=== PATIENT | female | born 1950 | race Caucasian/White ===

== ENCOUNTER → 2021-06-12 08:03 | Outpatient (BNVA) | payer MEDICARE, OTHER, SELFPAY | PROVIDERS: Family Provider Nurse Practitioner Family; PCP Nurse Practitioner; Visit Provider Nurse Practitioner Family | DX: R60.0 Localized edema (principal); R06.00 Dyspnea, unspecified | CPT/HCPCS: 80048 ==

== ENCOUNTER → 2021-09-10 16:46 | Outpatient (BNVA) | payer MEDICARE, OTHER, SELFPAY | PROVIDERS: Family Provider Nurse Practitioner Family; PCP Nurse Practitioner; Visit Provider Nurse Practitioner Family | DX: J90 Pleural effusion, not elsewhere classified (principal) | CPT/HCPCS: 71046 ==

== ENCOUNTER 2024-01-23 06:39 | Inpatient (IN) | payer MEDICARE, OTHER, SELFPAY ==
[2024-01-23] VITALS (17 sets, daily range): BP systolic 119–179; BP diastolic 54–106; PULSE 60–78; RESP 12–18; TEMP 36.6–36.9; O2SAT 94–99; BMI 30.9
--- NOTE | 2024-01-23 06:52 | ECG_ITS ---
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 Measurements Intervals [place] Rate: 78 P: 68 HI: 162 QRS: -27 QRSD: 89 T: 50 QT: 345 QTc: 394 Interpretive Statements SINUS RHYTHM BORDERLINE LEFT AXIS DEVIATION [QRS AXIS < -20] LEFT VENTRICULAR HYPERTROPHY AND ST-T CHANGE [VOLTAGE CRITERIA PLUS ST/T ABNORMALITY] No previous ECG available for comparison Electronically Signed On 01-25-2024 18:54:21 PAINT TRIMMER PIPE BOWLS by Ned Levi M.D. [id number]
--- NOTE | 2024-01-23 06:53 | XRR_ITS ---
PROCEDURE INFORMATION: Exam: XR Chest Exam date and time: 01/23/2024 7:08 AM Age: 73 years old Clinical indication: Pain; Angina pectoris; Additional info: Chest pain TECHNIQUE: Imaging protocol: Radiologic exam of the chest. Views: 1 view. COMPARISON: CR XR chest 2V* [id number] 09/10/2021 4:49 PM FINDINGS: Lungs: Resolved left-sided infiltrate, persistent right lower lobe opacity. Pleural spaces: Diminishing but persistent bilateral pleural effusions, right greater than left. Heart/Mediastinum: Mild cardiomegaly. Bones/joints: Status post median sternotomy for CABG. XR/XR chest 1V portable [id number] IMPRESSION: Overall improvement with persistent but improved effusion plus infiltrate on the right.
--- NOTE | 2024-01-23 06:59 | W.ED.GENADLT ---
HPI - General Adult General: Chief complaint: Chest Pain Stated complaint: chest tight, high BP, could not wake up Time Seen by Provider: 01/23/24 06:43 History of Present Illness: 73-year-old female presents emergency room complaining of elevated blood pressure and chest tightness. Patient reports she has a history of breast cancer with metastasis to bone lungs and brain. She is on oral therapy is not receiving any radiation this is managed in [place]. She also has a history of previous TAVR of coronary artery disease with several stents hypertension. Patient chronically wears oxygen at 3 L/min. This morning family reports that she seemed to be struggling to breathe they had a difficult time arousing her ultimately were able to wake her up she is complaining of chest pain describes it as a tightness. This is persisted since she actually did wake up. No radiation no accompanying shortness of breath. She has not taken anything for the chest discomfort. No hemoptysis no history of any PEs. Patient has had a previous TAVR procedure. Associated symptoms: Deny chest pain, dyspnea or rash Related Data Home Medications Medication Instructions Recorded Confirmed allopurinol 300 mg tablet 300 mg PO DAILY 01/23/24 01/23/24 isosorbide mononitrate 30 mg 30 mg PO QAM 01/23/24 01/23/24 tablet,extended release 24 hr letrozole 2.5 mg tablet 2.5 mg PO DAILY 01/23/24 01/23/24 metoprolol succinate 100 mg 100 mg PO QAM 01/23/24 01/23/24 tablet,extended release 24 hr olmesartan 20 mg tablet 20 mg PO DAILY 01/23/24 01/23/24 palbociclib 125 mg tablet (Ibrance) 125 mg PO DAILY 01/23/24 01/23/24 tramadol 50 mg tablet 50 - 100 mg PO Q4H PRN Pain 01/23/24 01/23/24 Allergies Allergy/AdvReac Type Severity Reaction Status Date / Time Usffnko-SQJ-YgZ Reductase Allergy Mild ADR-Muscle Verified 06/11/21 15:16 Inhibitor Pain Review of Systems Const: Denies: fever(s) or chills Card: Denies: chest pain Resp: Denies: dyspnea GI: Denies: abdominal pain : Denies: dysuria, urinary frequency or urinary urgency Musc: Denies: neck pain or back pain Skin/Breast: Denies: rash PFSH ED PFSH: Medical History (Updated 01/23/24 @ 15:20 by Boni Coy DO) Metastatic disease History of pleural effusion On home oxygen therapy Chronic anticoagulation Daily Lovenox Pulmonary embolism Impaired glucose tolerance Coronary artery disease Hypertension Stage IV breast cancer in female Per patient report, oncology care in [place] Surgical History (Updated 01/23/24 @ 14:03 by Kristian Chin MD) Hx of CABG Status post transcatheter aortic valve replacement (TAVR) using bioprosthesis Family History (Updated 01/23/24 @ 14:03 by Kristian Chin MD) Other Cancer Social History (Updated 01/23/24 @ 14:03 by Kristian Chni MD) Smoking and tobacco/nicotine status: former use of tobacco/nicotine Alcohol intake: never Substance/Drug Use: never Caregiver/support person: Yes Lives independently: Yes Household members: family Housing: House Physical Exam Const: GENERAL APPEARANCE: cooperative ORIENTATION/CONSCIOUSNESS: Yes awake, Yes oriented to person, Yes oriented to place and Yes oriented to time HENMT: COMMON NORMALS: normocephalic, atraumatic and hearing grossly normal bilaterally HEAD & SCALP: normocephalic and atraumatic Resp: COMMON NORMALS: normal respiratory effort, No retractions, No use of accessory muscles and clear to auscultation bilaterally AUSCULTATION: clear to auscultation bilaterally Cardio: COMMON NORMALS: regular rate, regular rhythm and No murmurs present (Cardio) RATE: regular rate RHYTHM: regular rhythm GI: COMMON NORMALS: Soft to palpation and No hepatosplenomegaly present AUSCULTATION: Yes normoactive bowel sounds PALPATION: Yes Soft to palpation, No Tenderness to palpation present (GI), No Guarding due to palpation present (GI) and Yes No hepatosplenomegaly present Extremity: COMMON NORMALS: normal to inspection, capillary refill normal, no clubbing, cyanosis or edema, no calf tenderness and no pedal edema Neuro: SENSORIUM/ORIENTATION: Yes oriented to person, Yes oriented to place and Yes oriented to time Skin: COMMON NORMALS: no rashes or lesions noted GENERAL SKIN EXAM: no rashes or lesions noted Course Vital Signs: Vital signs: Vital Signs Temperature 97.8 F 01/23/24 13:13 Pulse Rate 77 01/23/24 15:03 Respiratory Rate 18 01/23/24 13:11 Blood Pressure 157/76 01/23/24 13:13 Pulse Oximetry 96 01/23/24 13:50 Oxygen Delivery Me thod Nasal Cannula 01/23/24 15:03 Oxygen Flow Rate 2 01/23/24 13:50 MDM - General Adult Medical Decision Making Patient has a positive delta troponin started on nitroglycerin and IV heparin. She is pain-free at this time discussed with cardiology they will consult on the patient. Admit with the hospitalist. Medical Records I reviewed the patient's medical records. Lab Data I reviewed the patient's lab results. 01/23/24 07:05 01/23/24 07:05 Radiology Impressions Chest X-Ray 01/23/24 06:53 IMPRESSION: Overall improvement with persistent but improved effusion plus infiltrate on the right. Head CT 01/23/24 07:08 IMPRESSION: 1. No acute intracranial pathology. 2. Gliosis with dystrophic calcifications in the right occipital lobe. Chest CTA 01/23/24 08:05 IMPRESSION: 1. No pulmonary embolism. 2. Dilated pulmonary artery from pulmonary hypertension. 3. Atherosclerosis aorta. 4. Small RIGHT pleural effusion with dependent changes at the RIGHT lung base. 5. Mild pulmonary edema. 6. 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 Patient has no metastatic disease. 7. Soft tissue anasarca. Asymmetric soft tissue edema surrounding the RIGHT breast may be related to dependent changes or related to known breast cancer or therapy. ADDENDUM: 01/23/24 1224 IMPRESSION: 6. 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 Patient has KNOWN metastatic disease. Laboratory Results WBC 4.91 10^3/uL (3.29-11.43) 01/23/24 07:05 RBC 3.25 10^6/uL (3.85-5.65) L 01/23/24 07:05 Hgb 10.30 g/dL (11.27-16.99) L 01/23/24 07:05 Hct 31.2 % (36-47) L 01/23/24 07:05 MCV 96.0 fl (85-98) 01/23/24 07:05 MCH 31.7 pg (27-33) 01/23/24 07:05 MCHC 33.0 g/dL (30-55) 01/23/24 07:05 RDW 14.6 % (12.1-15.1) 01/23/24 07:05 Plt Count 130 10^3/cmm (157-399) L 01/23/24 07:05 MPV 10.1 fL (7.4-10.4) 01/23/24 07:05 Neut % (Auto) 86.2 % 01/23/24 07:05 Lymph % (Auto) 8.1 % 01/23/24 07:05 [place] % (Auto) 3.5 % 01/23/24 07:05 Eos % (Auto) 0.8 % 01/23/24 07:05 Baso % (Auto) 0.6 % 01/23/24 07:05 Neut # (Auto) 4.23 10^3/uL (1.8-7.7) 01/23/24 07:05 Lymph # (Auto) 0.4 10^3/uL (0.8-4.8) L 01/23/24 07:05 [place] # (Auto) 0.2 10^3/uL (0.2-0.9) 01/23/24 07:05 Eos # (Auto) 0.0 10^3/uL (0.0-0.8) 01/23/24 07:05 Baso # (Auto) 0.0 10^3/uL (0.0-0.1) 01/23/24 07:05 Nucleated RBC % (auto) 0 % 01/23/24 07:05 Nucleated RBCs # 0.0 /100WBC 01/23/24 07:05 PT 13.60 SECONDS (12.1-14.9) 01/23/24 07:05 INR 1.01 (0.8-1.2) 01/23/24 07:05 Sodium 133 mmol/L (136-145) L 01/23/24 07:05 Potassium 4.4 mmol/L (3.5-5.1) 01/23/24 07:05 Chloride 93 mmol/L (98-107) L 01/23/24 07:05 Carbon Dioxide 26 mmol/L (22-29) 01/23/24 07:05 Anion Gap 18.4 (5-19) 01/23/24 07:05 BUN 22 mg/dL (8-23) 01/23/24 07:05 Creatinine 1.1 mg/dL (0.5-0.9) H 01/23/24 07:05 GFR Calculation Not Reportable 01/23/24 07:05 Glucose 187 mg/dL (65-115) H 01/23/24 07:05 Estimat Average Glucose 103 01/23/24 07:05 Hemoglobin A1c 5.2 % (4.0-6.0) 01/23/24 07:05 Calculated Osmolality 284 mOsm/kg (285-295) L 01/23/24 07:05 Calcium 10.0 mg/dL (8.5-10.5) 01/23/24 07:05 Iron 32 ug/dL (37-145) L 01/23/24 09:10 TIBC 274 mcg/dl 01/23/24 09:10 % Saturation 11.6 % (20-50) L 01/23/24 09:10 Unsat Iron Binding 242 ug/dL (112-347) 01/23/24 09:10 Total Bilirubin 0.3 mg/dL (0.15-1.2) 01/23/24 07:05 AST 17 U/L (0-32) 01/23/24 07:05 ALT 13 U/L (0-33) 01/23/24 07:05 Alkaline Phosphatase 66 U/L (35-105) 01/23/24 07:05 Troponin T Baseline 45 ng/L (0-10) H 01/23/24 07:05 Troponin T 120 Minute 80.33 ng/L (0-10) H 01/23/24 09:10 Delta Troponin T 35.33 ABS# (0-10) H* 01/23/24 09:10 Total Protein 7.1 g/dL (6.6-8.7) 01/23/24 07:05 Albumin 4.3 g/dL (3.5-5.2) 01/23/24 07:05 Globulin 2.8 g/dL (1.3-4.6) 01/23/24 07:05 Vitamin B12 1163 pg/mL (232-1245) 01/23/24 09:10 Procalcitonin 0.06 ng/mL (0-0.5) 01/23/24 09:10 TSH 0.90 uIU/mL (0.27-4.20) 01/23/24 09:10 Urine Color Yellow (Yellow) 01/23/24 06:49 Urine Appearance Cloudy (CLEAR) A 01/23/24 06:49 Urine pH 6.0 (5-7) 01/23/24 06:49 Ur Specific [place] 1.013 (1.005-1.030) 01/23/24 06:49 Urine Protein 1+ (Negative) A 01/23/24 06:49 Urine Glucose (UA) 2+ (Normal) H 01/23/24 06:49 Urine Ketones Negative (Negative) 01/23/24 06:49 Urine Blood Negative (Negative) 01/23/24 06:49 Urine Nitrate Negative (Negative) 01/23/24 06:49 Urine Bilirubin Negative (Negative) 01/23/24 06:49 Urine Urobilinogen 0.2 mg/dL (Negative) 01/23/24 06:49 Ur Leukocyte Esterase Negative (Negative) 01/23/24 06:49 Urine RBC 0-2 /hpf (0-2) 01/23/24 06:49 Urine WBC 6-10 /hpf (0-5) 01/23/24 06:49 Ur Squamous Epith Cells 0-5 /hpf (0-5) 01/23/24 06:49 Amorphous Sediment Not Reportable 01/23/24 06:49 Urine Bacteria Exceeds /hpf (NONE) 01/23/24 06:49 Hyaline Casts 1.65 /lpf 01/23/24 06:49 Urine Opiates Screen Negative ng/mL (Negative) 01/23/24 06:49 Ur Barbiturates Screen Negative ng/mL (Negative) 01/23/24 06:49 Ur Phencyclidine Scrn Negative ng/mL (Negative) 01/23/24 06:49 Ur Amphetamines Screen Negative ng/mL (Negative) 01/23/24 06:49 U Benzodiazepines Scrn Negative ng/mL (Negative) 01/23/24 06:49 Urine Cocaine Screen Negative ng/mL (Negative) 01/23/24 06:49 U Marijuana (THC) Screen Negative ng/mL (Negative) 01/23/24 06:49 All radiology interpretation(s) finalized by discharge Discharge Plan Discharge Patient Disposition: Admitted As Inpatient Admit Provider: Kristian Chin Clinical Impression: Non-ST elevation HI (NSTEMI), Stage IV breast cancer in female Condition: Stable Coding Level of Care Code ED 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
--- NOTE | 2024-01-23 07:08 | CTR_ITS ---
PROCEDURE INFORMATION: Exam: CT Head Without Contrast Exam date and time: 01/23/2024 7:29 AM Age: 73 years old Clinical indication: Altered mental status/memory loss; Prior surgery; Surgery date: 6+ months; Surgery type: Orbit; Patient HX: HX of breast and lung cancer; Additional info: HX breast CA w mets, AMS TECHNIQUE: Imaging protocol: Computed tomography of the head without contrast. Radiation optimization: All CT scans at this facility use at least one of these dose optimization techniques: automated exposure control; mA and/or kV adjustment per patient size (includes targeted exams where dose is matched to clinical indication); or iterative reconstruction. COMPARISON: No relevant prior studies available. RADIATION DOSE METRICS: Total DLP (mGy-cm): 1066.78 FINDINGS: Brain: Gliosis with dystrophic calcifications in the right occipital lobe. Periventricular white matter lucency represents atherosclerotic encephalopathic changes. Cerebral ventricles: No ventriculomegaly. Paranasal sinuses: Visualized sinuses are unremarkable. No fluid levels. Mastoid air cells: Visualized mastoid air cells are well aerated. Bones: Unremarkable. No acute fracture. Soft tissues: Unremarkable. CT/CT head wo con* [id number] IMPRESSION: 1. No acute intracranial pathology. 2. Gliosis with dystrophic calcifications in the right occipital lobe.
[2024-01-23 07:16] LABS: Basophils % 0.6 %; Eosinophils % 0.8 %; Hematocrit 31.2 % (36-47); Lymphocytes # 0.4 10^3/uL (0.8-4.8); Lymphocytes % 8.1 %; Mean Corpuscular Hemoglobin 31.7 pg (27-33); Mean Platelet Volume 10.1 fL (7.4-10.4); Monocytes # 0.2 10^3/uL (0.2-0.9); Monocytes % 3.5 %; Neutrophils # 4.23 10^3/uL (1.8-7.7); Neutrophils % 86.2 %; Nucleated Red Blood Cells % 0 %; Platelet Count 130 10^3/cmm (157-399); Red Blood Count 3.25 10^6/uL (3.85-5.65); Red Cell Distribution Width 14.6 % (12.1-15.1); White Blood Count 4.91 10^3/uL (3.29-11.43)
[2024-01-23 07:27] LABS: INR 1.01 (0.8-1.2)
[2024-01-23 07:35] LABS: Alanine Aminotransferase 13 U/L (0-33); Albumin Level 4.3 g/dL (3.5-5.2); Alkaline Phosphatase 66 U/L (35-105); Anion Gap 18.4 (5-19); Aspartate Amino Transferase 17 U/L (0-32); Blood Urea Nitrogen 22 mg/dL (8-23); Carbon Dioxide 26 mmol/L (22-29); Chloride 93 mmol/L (98-107); Creatinine Clr Calc Pharmacy 47.0836; Globulin 2.8 g/dL (1.3-4.6); Glucose 187 mg/dL (65-115); Osmolality Calculated 284 mOsm/kg (285-295); Potassium 4.4 mmol/L (3.5-5.1); Sodium 133 mmol/L (136-145); Total Bilirubin 0.3 mg/dL (0.15-1.2); Total Protein 7.1 g/dL (6.6-8.7); Troponin(5th) Baseline 45 ng/L (0-10)
--- NOTE | 2024-01-23 07:42 | PC.PHAR ---
Pt is on chemotherapy treatment and takes Ibrance 125mg 3 weeks on and 1 week off-pt is on 3rd week on.
[2024-01-23 07:47] LABS: Slide Review Slide Review Perform
--- NOTE | 2024-01-23 08:05 | CT_ITS ---
WS: [id number] CT CHEST ANGIOGRAPHY WITH REFORMATS HISTORY: Abnormal chest x-ray TECHNIQUE: Contiguous axial images are obtained through the chest during arterial injection of intrav enous contrast. Images are reconstructed to evaluate the pulmonary arteries. MIP imaging also reviewe d. All CT scans at [facility] use at least one of these dose optimization techniques: automat ed exposure control; mA and/or kV adjustment per patient size (includes targeted exams where dose is matched to clinical indication); or iterative reconstruction. CONTRAST: Omnipaque 350; 100 mL IV. DLP: 410.21 mGy.cm COMPARISON: Chest radiograph 01/23/2024 Good opacification of the pulmonary artery. Pulmonary artery is dilated. No pulmonary embolism. Moder ate scattered plaque within the thoracic aorta with slight ectasia. No aneurysm. Bovine arch. Aortic valve replacement. Prior CABG. Heart is enlarged. No RIGHT heart strain. Heart enlargement is predomi nantly the LEFT atrium and ventricle. Scattered hazy attenuation throughout both lungs but greater on the LEFT. Atelectasis at the RIGHT shade ng base with a small RIGHT pleural effusion. No mediastinal or hilar adenopathy. Mild LEFT adrenal gland thickening. LEFT adrenal gland is incompletely visualized. Mild soft tissue anasarca. There is subcutaneous edema, greatest surrounding the RIGHT breast. There are nodules within each breast. No recent mammogram. Coarse calcifications RIGHT breast. Osteoblastic metastatic disease within the spine and ribs. CT/CT angio chest PE protcl [id number] IMPRESSION: 1. No pulmonary embolism. 2. Dilated pulmonary artery from pulmonary hypertension. 3. Atherosclerosis aorta. 4. Small RIGHT pleural effusion with dependent changes at the RIGHT lung base. 5. Mild pulmonary edema. 6. 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 Patient has no metastatic disease. 7. Soft tissue anasarca. Asymmetric soft tissue edema surrounding the RIGHT br east may be related to dependent changes or related to known breast cancer or t herapy.
[2024-01-23] MEDS: iohexol 350 mg/mL 500 mL Btl (per mL) IV (08:37)
[2024-01-23 09:40] LABS: Troponin 5 2HR 80.33 ng/L (0-10)
[2024-01-23 09:44] LABS: Troponin 5 2HR Delta 35.33 ABS# (0-10)
--- NOTE | 2024-01-23 09:48 | ECG_ITS ---
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 Measurements Intervals [place] Rate: 67 P: 69 [place]: 171 QRS: -21 QRSD: 92 T: 29 QT: 376 QTc: 399 Interpretive Statements SINUS RHYTHM BORDERLINE LEFT AXIS DEVIATION [QRS AXIS < -20] MINIMAL VOLTAGE CRITERIA FOR LVH, CONSIDER NORMAL VARIANT [MEETS CRITERIA IN ONE OF: R(aVL), S(V1), R(V5), R(V5/V6)+S(V1)] Compared to ECG 01/23/2024 06:52:56 ST (T wave) deviation no longer present Electronically Signed On 01-25-2024 19:10:42 [employer]YWALL FINISHING FOREMAN by Ned Levi M.D. [id number]
[2024-01-23] MEDS: nitroglycerin 1 gm/inch oint Pkt 1 INCH TOPICAL (10:14)
[2024-01-23] MEDS: heparin 5,000 unit/mL INJ 1 mL IVP (10:15)
[2024-01-23] MEDS: heparin drip 25,000 UNIT/500 ML PREMIX 23 UNIT IV (10:22)
--- NOTE | 2024-01-23 12:27 | P.CONIM_ITS ---
Providers/Reason For Consult 2 Consulting Physician/Specialty*: Ned Levi MD/ Cardiology Reason for Consult*: NSTEMI Requesting Physician: Dr Coy Attending Physician: Kristian Chin MD Primary Care Provider: Tricia Stewart APN History of Present Illness History of Present Illness Lilia Aviles is a 73 year old female Past medical history ofMetastatic breast cancer, Coronary artery disease status post CABG in 2015 and TAVR in 2022 was noted by family to have somnolence, loud snoring sounds while breathing and had altered mental status. By the time she came to the hospital, her mental status was back to normal.However she was having chest tightness. Her blood pressure was elevated.Initial troponin was 45 and trended up to 134 at 6 hours. No more having chest discomfort. Review of Systems 2 Const: Denies: fever(s) or chills Card: Reports: chest pain Resp: Denies: dyspnea GI: Denies: abdominal pain : Denies: dysuria, urinary frequency or urinary urgency Musc: Denies: neck pain or back pain Skin/Breast: Denies: rash Medications/Allergies Home Medications Medication Instructions Recorded Confirmed Last Taken Type allopurinol 300 mg tablet 300 mg PO DAILY 01/23/24 01/23/24 01/22/24 History isosorbide mononitrate 30 mg 30 mg PO QAM 01/23/24 01/23/24 01/22/24 History tablet,extended release 24 hr letrozole 2.5 mg tablet 2.5 mg PO DAILY 01/23/24 01/23/24 01/22/24 History metoprolol succinate 100 mg 100 mg PO QAM 01/23/24 01/23/24 01/22/24 History tablet,extended release 24 hr olmesartan 20 mg tablet 20 mg PO DAILY 01/23/24 01/23/24 01/22/24 History palbociclib 125 mg tablet (Ibrance) 125 mg PO DAILY 01/23/24 01/23/24 01/22/24 History tramadol 50 mg tablet 50 - 100 mg PO Q4H PRN Pain 01/23/24 01/23/24 Unknown History Allergies Allergy/AdvReac Type Severity Reaction Status Date / Time Xjwmtph-FNU-FyO Reductase Allergy Mild ADR-Muscle Verified 06/11/21 15:16 Inhibitor Pain Current Medications Generic Name Dose Route Start Last Admin Trade Name Brianq PRN Reason Stop Dose Admin Heparin Sodium/Sodium Chloride 25,000 unit in 500 mls @ 0 mls/hr 01/23/24 10:00 01/23/24 10:22 Heparin Drip IV 14.09 unit/kg/hr CONT VERONICA 23 mls/hr Administration Protocol Per Protocol PFSH Acute 2 PFSH: Medical History Metastatic disease History of pleural effusion On home oxygen therapy Chronic anticoagulation Daily Lovenox Pulmonary embolism Impaired glucose tolerance Coronary artery disease Hypertension Stage IV breast cancer in female Per patient report, oncology care in [place] Surgical History Hx of CABG Status post transcatheter aortic valve replacement (TAVR) using bioprosthesis Family History Other Cancer Social History Smoking and tobacco/nicotine status: former use of tobacco/nicotine Alcohol intake: never Substance/Drug Use: never Caregiver/support person: Yes Lives independently: Yes Household members: family Housing: House Vitals/I&O/Wt Last Vital Signs Temp 98.2 F 01/23/24 06:53 Pulse 78 01/23/24 12:00 Resp 16 01/23/24 11:30 BP 133/77 01/23/24 12:00 Pulse Ox 94 01/23/24 12:00 O2 Del Method Nasal Cannula 01/23/24 12:00 O2 Flow Rate 2 01/23/24 12:00 01/22/24 01/23/24 01/23/24 22:59 06:59 14:59 Intake Total 0 / 0 Balance 0 / 0 Weight last 48 hrs Weight 180 lb Physical Exam 2 Narrative: GENERAL: Patient is alert, awake and oriented x3. [] NECK: No jugular vein distension. [] HEENT: No cyanosis. No icterus. No pallor. [] HEART: Regular S1 and S2. Grade 2/6 systolic murmur LUNGS: Clear to auscultate bilaterally. [] CENTRAL NERVOUS SYSTEM: Grossly nonfocal. [] EXTREMITIES: Lower extremities with 1+ edema bilaterally Data 11/30/24 06:04 01/24/24 06:04 A&P Assessment and plan (1) Non-ST elevation IA (NSTEMI): (2) Chronic anticoagulation: (3) Pulmonary embolism: (4) Hx of CABG: (5) Status post transcatheter aortic valve replacement (TAVR) using bioprosthesis: (6) Coronary artery disease: (7) Hypertension: Plan Patient has presented with altered mental status and chest tightness symptoms. Troponins have trended up significantly. She has significant history of CAD with prior CABG. I have discussed all potential options including proceeding with coronary angiogram with possible PCI versus medical therapy. Patient and family want to think about it and will inform us in the morning. N.p.o. past midnight. Will obtain echocardiogram. Continue anticoagulation. Will start aspirin Thank you for involving us with care of this patient. We will continue to follow. Please call with questions. Consult Attestations 2 Medical Necessity Statement: Care expected to cross 2 midnights. Coding Level of Care Code Acute Code for [facility] Diagnoses Non-ST elevation IA (NSTEMI) I21.4 Chronic anticoagulation Z79.01 Pulmonary embolism I26.99 Hx of CABG Z95.1 Status post transcatheter aortic valve replacement (TAVR) using bioprosthesis Z95.3 Coronary artery disease I25.10 Hypertension I10
--- NOTE | 2024-01-23 12:54 | ECG_ITS ---
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 Measurements Intervals [place] Rate: 69 P: 64 OR: 160 QRS: -24 QRSD: 94 T: 33 QT: 391 QTc: 421 Interpretive Statements SINUS RHYTHM BORDERLINE LEFT AXIS DEVIATION [QRS AXIS < -20] LEFT VENTRICULAR HYPERTROPHY AND ST-T CHANGE [VOLTAGE CRITERIA PLUS ST/T ABNORMALITY] Compared to ECG 01/23/2024 09:48:20 ST (T wave) deviation now present Electronically Signed On 01-25-2024 19:10:18 SALSA DANCE INSTRUCTOR by Ned Levi M.D. [id number]
--- NOTE | 2024-01-23 13:14 | USCV_ITS ---
Lilia Aviles Age: 73 Gender: F : 1950 Exam Date: 01/23/2024 17:52 Ordering Phys: Kristian Chin MD Technologist: Chencho Pérez Exam Location: [facility] – [place] Indication: nstemi BP: 170 / 78 HR: 60 Rhythm: Sinus Technical Quality: Adequate MEASUREMENTS (Male / Female) Normal Values 2D ECHO LV Diastolic Diameter PLAX 4.2 cm 4.2 - 5.9 / 3.9 - 5.3 cm IVS Diastolic Thickness 1.1 cm 0.6 - 1.0 / 0.6 - 0.9 cm IVS Systolic Thickness 1.4 cm LVPW Diastolic Thickness 1.8 cm 0.6 - 1.0 / 0.6 - 0.9 cm LVPW Systolic Thickness 1.9 cm LVOT Diameter 2.0 cm LV Ejection Fraction 2D Teich 60.3 % LV Ejection Fraction MOD 4C 61.3 % LV Ejection Fraction MOD 2C 60.0 % LV Ejection Fraction 2C AL 62.0 % LA Diameter 3.6 cm RA Systolic Volume 4C AL 54.7 ml RA Systolic Volume 4C MOD 53.9 ml LA Sys Volume AL 40.6 cm cubed LA Sys Volume Index AL 20.8 cm cubed/m squared Aorta at Sinotubular Diameter 2.2 cm IVC Diameter 1.6 cm M-MODE LA Ao Ratio MM 1.5 AV Cusp Separation MM 0.9 cm DOPPLER AV Peak Velocity 240.7 cm/s LVOT Peak Velocity 68.0 cm/s AV Area Cont Eq vti 1.0 cm squared AV Area Cont Eq pk 0.9 cm squared MV Peak Velocity 117.0 cm/s MV Area PHT 3.0 cm squared Mitral E to A Ratio 0.7 TV Peak Velocity 186.0 cm/s TR Peak Velocity 229.0 cm/s TR Peak Gradient 21.0 mmHg TR Mean Velocity 189.0 cm/s TR Mean Gradient 15.0 mmHg TR Velocity Time Integral 58.9 cm PV Peak Velocity 120.0 cm/s RV Ejection Time 0.3 s FINDINGS Left Ventricle Left ventricle is normal in size. LV systolic function is normal with EF 55 to 60%. No regional wall motion abnormalities are seen. Grade 1 diastolic dysfunction Right Ventricle Normal in size and function Right Atrium Normal in size Left Atrium Normal in size Mitral Valve Mild to moderate mitral annular calcification. Mild mitral regurgitation Aortic Valve Bioprosthetic aortic valve. Mean gradient across aortic valve is 13 mmHg. DVI is normal and is 0.36 Tricuspid Valve Mild tricuspid regurgitation. Insufficient TR jet to calculate RVSP Pulmonic Valve Mild pulmonic regurgitation Pericardium Normal Aorta Normal in size IVC Appears to be normal CONCLUSIONS LV systolic function is normal with EF of 55-60% Grade 1 diastolic dysfunction Mild mitral regurgitation Normally functioning aortic valve. Mild pulmonic regurgitation. No comparison studies are available Ned Levi MD (Electronically Signed) Final Date: 24 January 2024 08:02 S
--- NOTE | 2024-01-23 13:54 | P.HP_ITS ---
Providers/Chief Complaint 2 Admitting Physician: Kristian Chin MD Primary Care Provider: Tricia Stewart APN Chief Complaint: chest tight, high BP, could not wake up History of Present Illness Lilia Aviles is a 73 year old female with past medical history of 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 As per the daughter who is at bedside daughter woke up earlier in the morning today when she heard a loud snoring voice and found patient to be somnolent, not responsive or waking up to a noxious stimuli. Patient was found hunched over in a recliner. Patient herself does not recall any of the events. By the time EMS arrived patient was already waking up slightly. She was found to have elevated blood pressures with a normal blood sugar. When patient woke up she did complain of mild psych chest tightness. Current on examination patient is awake and alert back to her baseline. She denies any nausea, vomiting, headache, dizziness, chest pain. Patient denies any chest pain on exertion but does complain of occasional shortness of breath on exertion specially on walking fast. Patient did not have any symptoms last night and was actually up for late night spending time with her extended family for Thanksgiving. Denies any history of sleep apnea. She was found to have elevated blood pressures in the ER going up to 178/100 systolic for which she required Nitropaste and she was started on a heparin drip with concerns for non-ST ovation LA given positive delta troponin 2 hours. Review of Systems 2 General: Reports: 10 or more systems reviewed and unremarkable except in HPI and below Const: Denies: fever(s), chills, body aches, change in appetite, change in weight, malaise, night sweats, diaphoresis, change in sleep pattern, daytime sleepiness or snoring Eyes: Denies: change in vision, blurry vision, photophobia, eye discomfort or eye discharge ENMT: Denies: throat pain, enlarged tonsils, hoarseness, mouth pain, oral sores, dry mouth, tinnitus, nasal congestion or post nasal drip Card: Denies: chest pain, palpitations, irregular heart rhythm, edema, swelling of feet/ankles, lightheadedness, syncope, pre-syncope, dyspnea on exertion, orthopnea, leg pain with exertion or acrocyanosis Resp: Denies: dyspnea, productive cough, non-productive cough, wheezing, stridor, pain on inspiration, change in phlegm color, hemoptysis or chest congestion GI: Denies: abdominal pain, nausea, vomiting, hematemesis, coffee ground emesis, dysphagia, heartburn, diarrhea, constipation, bloating, GI cramping, change in bowel habits, pain on defecation, hematochezia or melena : Denies: flank pain, dysuria, urinary frequency, urinary urgency, urinary hesitancy, nocturia or hematuria Musc: Denies: neck pain, back pain, extremity pain, joint pain, joint swelling, joint redness, joint stiffness or limited range of motion Neuro: Denies: headache(s), numbness in extremities, weakness in extremities, sensory changes, lack of coordination, difficulty walking, frequent falls, dizziness, vertigo, confusion, Slurred speech present, difficulty communicating thoughts or seizure-like activity Psych: Denies: anxiety, depression, mood swings, panic attacks, hopelessness or irritability Endo: Denies: polyuria, polydipsia, tired all the time, cold intolerance, excessive sweating, flushing or heat intolerance Bryant/Lymph: Denies: easy bruising or easy bleeding All/Imm: Denies: tongue swelling, facial swelling or acute wheezing Medications/Allergies Home Medications Medication Instructions Recorded Confirmed Last Taken Type allopurinol 300 mg tablet 300 mg PO DAILY 01/23/24 01/23/24 01/22/24 History isosorbide mononitrate 30 mg 30 mg PO QAM 01/23/24 01/23/24 01/22/24 History tablet,extended release 24 hr letrozole 2.5 mg tablet 2.5 mg PO DAILY 01/23/24 01/23/24 01/22/24 History metoprolol succinate 100 mg 100 mg PO QAM 01/23/24 01/23/24 01/22/24 History tablet,extended release 24 hr olmesartan 20 mg tablet 20 mg PO DAILY 01/23/24 01/23/24 01/22/24 History palbociclib 125 mg tablet (Ibrance) 125 mg PO DAILY 11/01/23/24 01/22/24 History tramadol 50 mg tablet 50 - 100 mg PO Q4H PRN Pain 01/23/24 01/23/24 Unknown History Allergies Allergy/AdvReac Type Severity Reaction Status Date / Time Lnurdrp-MQM-BrE Reductase Allergy Mild ADR-Muscle Verified 06/11/21 15:16 Inhibitor Pain PFSH Acute 2 PFSH: Medical History (Updated 01/23/24 @ 14:03 by Kristian Chin MD) Metastatic disease History of pleural effusion On home oxygen therapy Chronic anticoagulation Daily Lovenox Pulmonary embolism Impaired glucose tolerance Coronary artery disease Hypertension Stage IV breast cancer in female Per patient report, oncology care in [place] [facility] History (Updated 01/23/24 @ 14:03 by Kristian Chin MD) Hx of CABG Status post transcatheter aortic valve replacement (TAVR) using bioprosthesis Family History (Updated 01/23/24 @ 14:03 by Kristian Chin MD) Other Cancer Social History (Updated 01/23/24 @ 14:03 by Kristian Chin MD) Smoking and tobacco/nicotine status: former use of tobacco/nicotine Alcohol intake: never Substance/Drug Use: never Caregiver/support person: Yes Lives independently: Yes Household members: family Housing: House Vitals/I&O/Wt Last Vital Signs Temp 97.8 F 01/23/24 13:13 Pulse 71 01/23/24 13:13 Resp 18 01/23/24 13:11 BP 157/76 01/23/24 13:13 Pulse Ox 96 01/23/24 13:50 O2 Del Method Nasal Cannula 01/23/24 13:50 O2 Flow Rate 2 01/23/24 13:50 01/22/24 01/23/24 01/23/24 22:59 06:59 14:59 Intake Total 0 / 0 Balance 0 / 0 Weight last 48 hrs Weight 81.647 kg Physical Exam 2 Narrative: General: No acute distress, AO x3 HEENT: PERRLA, pupils bilaterally equal and reactive Chest: Normal vesicular breath sounds, no added sounds, equal good air entry bilaterally CVS: S1-S2 regular, no murmurs, no tachycardia, no gallops, no rubs Abdomen: Soft, nontender, no organomegaly, bowel sounds present Neuro: No focal deficits, no facial deformity, AO x3, power 5/5 in all limbs Data 01/23/24 07:05 01/23/24 07:05 A&P Assessment and plan (1) Altered mental status: (2) Tightness in chest: (3) Hx of CABG: (4) Status post transcatheter aortic valve replacement (TAVR) using bioprosthesis: (5) Hypertension: (6) Pulmonary embolism: (7) Chronic anticoagulation: (8) On home oxygen therapy: (9) Impaired glucose tolerance: (10) Stage IV breast cancer in female: (11) Metastatic disease: Plan 73-year-old lady with past medical history of breast cancer with metastatic disease, pulmonary embolism on chronic anticoagulation with Lovenox, history of CABG 8 years ago, TAVR within last 1 year brought to the ER today because of episode of altered mental status and somnolence at home but was resolved by the time she presented along with complaints of chest tightness. Altered mental status: Unknown etiology: Patient does not have any history of sleep apnea but has not been checked recently. Cannot rule out arrhythmia. Does have history of impaired glucose tolerance with hypoglycemia on and off. Also complaining of chest tightness. CT head done on presentation normal with chronic changes. No pulmonary embolism on CTA. Telemetry monitoring Urine drug screen, alcohol level. Check TSH, vitamin B12 level. Electrolyte levels normal. Patient does not have any dysuria or leukocytosis. Low concern for infectious cause for now. Monitor blood pressures. Check A1c. Chest tightness: Patient does have history of CABG with recent TAVR. Angiogram asked with the patient prior to TAVR showed patent grafts. Aspirin 325 mg one-time followed by 81 mg daily. Patient is allergic to statins. Check A1c, lipid panel. Check echocardiogram. Cycle troponins. Cardiology has been consulted. Continue heparin drip for now. History of pulmonary embolism: On home oxygen therapy. Not requiring higher oxygen for now. CTA negative for PE. Already on heparin drip. For now we will continue. Will transition to home Lovenox on discharge. Hypertension: Goal blood pressure less than 140/90 mmHg. Continue with home dose of isosorbide, metoprolol and olmesartan. Will try to get documents from patient's outpatient oncology and PCP along with cardiology office. CODE STATUS: Discussed in detail with the patient. Son and daughter at bedside with DPOA. Full code Cardiac diet Heparin drip to be sufficient for DVT prophylaxis Protonix OPD prophylaxis Continue other chronic home medications. Attestations 2 Medical Necessity Statement*: Admission for more than 2 midnights for management of chest tightness with concerns for unstable angina in a patient with history of PE, ACS post TAVR and CABG, altered mental status Diagnoses Altered mental status R41.82 Tightness in chest R07.89 Hx of CABG Z95.1 Status post transcatheter aortic valve replacement (TAVR) using bioprosthesis Z95.3 Hypertension I10 Pulmonary embolism I26.99 Chronic anticoagulation Z79.01 On home oxygen therapy Z99.81 Impaired glucose tolerance R73.02 Stage IV breast cancer in female C50.919 Metastatic disease C79.9
[2024-01-23 13:55] LABS: Procalcitonin 0.06 ng/mL (0-0.5)
[2024-01-23 13:58] LABS: Estmated Average Glucose 103; Hemoglobin A1C 5.2 % (4.0-6.0)
[2024-01-23 14:24] LABS: Amphetamines Screen Urine Negative (Negative); Barbiturates Screen Urine Negative (Negative); Benzodiazepines Screen Urine Negative (Negative); Cocaine Screen Urine Negative (Negative); Opiate Screen Urine Negative (Negative); PCP Screen Urine Negative (Negative); THC Screen Urine Negative (Negative)
[2024-01-23 14:34] LABS: Troponin 5 6HR 134.1 ng/L (0-10); Troponin 5 6HR Delta 89.1 ng/L (0-12)
[2024-01-23 14:38] LABS: Iron 32 ug/dL (37-145); Percent Saturation 11.6 % (20-50); Total Iron Binding Capacity 274 mcg/dl; Unsaturated Iron Binding 242 ug/dL (112-347)
[2024-01-23 14:47] LABS: Bilirubin Urine Negative (Negative); Blood Urine Negative (Negative); Glucose Urine UA 2+ (Normal); Ketones Urine Negative (Negative); Leukocyte Esterase Urine Negative (Negative); Nitrate Urine Negative (Negative); Protein Urine 1+ (Negative); Specific Gravity, Urine 1.013 (1.005-1.030); Urine Appearance Cloudy (CLEAR); Urine Color Yellow (Yellow); Urobilinogen Urine 0.2 mg/dL (Negative)
[2024-01-23 14:52] LABS: Add Urine Microscopic? YES; Bacteria Urine EXCEEDS /hpf; Hyaline Casts Urine 1.65 /lpf; RBC Urine 0-2 /hpf (0-2); Squamous Epithelial Cell Urine 0-5 /hpf (0-5)
[2024-01-23 14:55] LABS: Vitamin B12 1163 pg/mL (232-1245)
[2024-01-23] MEDS: isosorbide mononitrate ER 30 mg Tablet PO (14:55)
[2024-01-23] MEDS: metoprolol tartrate 50 mg Tablet PO ×2 (14:55→21:19)
[2024-01-23 16:58] LABS: Partial Thromboplastin Time 143.2 SECONDS (23.9-36.7)
[2024-01-23 23:36] LABS: Partial Thromboplastin Time 97.3 SECONDS (23.9-36.7)
[2024-01-24] VITALS (21 sets, daily range): BP systolic 127–161; BP diastolic 55–75; PULSE 60–94; RESP 14–28; TEMP 36.3–37; O2SAT 96–100
[2024-01-24] MEDS: isosorbide mononitrate ER 30 mg Tablet PO (06:27)
[2024-01-24 06:29] LABS: Basophils % 0.4 %; Eosinophils % 0.8 %; Hematocrit 27.2 % (36-47); Lymphocytes # 0.6 10^3/uL (0.8-4.8); Lymphocytes % 21.2 %; Mean Corpuscular HGB Conc 32.7 g/dL (30-55); Mean Corpuscular Hemoglobin 32.8 pg (27-33); Mean Corpuscular Volume 100.4 fl (85-98); Mean Platelet Volume 9.9 fL (7.4-10.4); Monocytes # 0.3 10^3/uL (0.2-0.9); Monocytes % 9.5 %; Neutrophils # 1.78 10^3/uL (1.8-7.7); Neutrophils % 67.3 %; Nucleated Red Blood Cells % 0 %; Platelet Count 116 10^3/cmm (157-399); Red Blood Count 2.71 10^6/uL (3.85-5.65); Red Cell Distribution Width 14.6 % (12.1-15.1); White Blood Count 2.64 10^3/uL (3.29-11.43)
[2024-01-24 06:45] LABS: Alanine Aminotransferase 10 U/L (0-33); Albumin Level 3.7 g/dL (3.5-5.2); Alkaline Phosphatase 55 U/L (35-105); Anion Gap 14.2 (5-19); Aspartate Amino Transferase 16 U/L (0-32); Blood Urea Nitrogen 22 mg/dL (8-23); Calcium 9.5 mg/dL (8.5-10.5); Carbon Dioxide 26 mmol/L (22-29); Chloride 96 mmol/L (98-107); Globulin 2.4 g/dL (1.3-4.6); Glucose 97 mg/dL (65-115); Magnesium 2.1 mg/dL (1.7-2.3); Osmolality Calculated 277 mOsm/kg (285-295); Phosphorus 3.3 mg/dL (2.5-4.5); Potassium 4.2 mmol/L (3.5-5.1); Sodium 132 mmol/L (136-145); Total Bilirubin 0.3 mg/dL (0.15-1.2); Total Protein 6.1 g/dL (6.6-8.7)
[2024-01-24 06:56] LABS: Creatinine Clr Calc Pharmacy 47.0836
[2024-01-24 07:19] LABS: Chol HDL Ratio 5.18 mg/dL (0.0-4.40); Cholesterol 197 mg/dL (0-200); HDL Cholesterol 38 mg/dL (60-100); LDL Cholesterol Calculated 133 mg/dL (50-129); Triglycerides 129 mg/dL (0-150)
[2024-01-24 07:26] LABS: Procalcitonin 0.07 ng/mL (0-0.5)
[2024-01-24 07:45] LABS: Folate Level > 20.0 ng/mL (4.8-37.3)
--- NOTE | 2024-01-24 08:18 | XACV_ITS ---
Exam Room: [facility] Ht: 163 cm Wt: 82 kg BSA: 1.95 m2 Gender: Female : 1950 Any Known Allergies: Other Exam Priority: Routine Indication(s): - Non-ST elevation NH Procedure(s): Procedure Description: Diagnostic procedure Procedure Description: Venous Graft Catheterization Procedure Description: Coronary Angiography Diagnostic Cath Status: Urgent Diagnostic Findings * Left Main has moderate luminal irregularities. * Proximal LAD has severe diffuse disease. Mid Left Anterior Descending: chronic total occlusion, DONNA: 0 flow. * Proximal Right Coronary Artery: Chronic total occlusion, DONNA: 0 flow. * Proximal Circumflex: Chronic total occlusion, DONNA: 0 flow. * Bypass grafts: HO to LAD is patent. SVG to RCA is patent. SVG to diagonal artery is patent. SVG to OM is patent. * Coronary angiography shows right dominance. Conclusions 1. Severe [place] coronary artery disease. Patent bypass grafts . 2. Patient has prior CABG. Recommendations * Aggressive medical therapy for coronary artery disease. * Outpatient cardiology follow up in 2 weeks. Interventional RX Recommendation: medical therapy and/or counseling Diagnostic RX Recommendation: medical therapy and/or counseling Pressures Phase:Rest AO : 130 / 85 ( 106 ) @ 10:47:00 AM Clinical Evaluation EBL: 5mL-10mL Procedural Details Procedure Consent Obtained. Pre-Procedure Time Out. Identified patient by full name and date of as verbalized by the patient/guarantor. Does the consent match the physician's order: Yes. Accurate & Complete Informed Consent: Yes. Inpatient/Outpatient History & Physical on Chart: Yes. If H&P is completed, is and addenduem needed: No; If yes, is the addendum complete: N/A. Visualize and Verify Site with Patient/Guarantor: N/A. Relevant Radiology Images available: N/A. The risks, benefits, and alternatives of sedation and/or procedure were discussed by physician. The patient agrees to continue. Procedure started. [facility] Clinical Fraility Score: 6: Moderately Frail. 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 Chest Pain Symptom Assessment: Typical Angina Symptoms. Cardiovascular Instability: No. Correct patient, site and procedure confirmed by cath team. Current diagnosis: NSTEMI. PERRLA. Strong, equal hand dural mechanic bilaterally. Lungs clear x 5 lobes. IV Site on Arrival: 20 gauge in the right anticubital. IV Fluids: 0.9% NaCl at KVO. 0 mL infused prior to laborer drying department. Pre Procedural Pulses: bilateral posterior tibial was Doppled. Pre Procedural Pulses: bilateral dorsalis pedis was Doppled. Pre Procedural Pulses: bilateral radial was 2+. Oxygen started at 3liters/min via nasal canula. bilateral groins was prepped with chloroprep then draped in the usual sterile fashion. Physician notified. Physician arrived. Baseline sample Acquired. HR: 56 BPM. Baseline sample Acquired. HR: 67 BPM. Physician scrubbed in. Family updated by MD prior to the start of the procedure. Immediate Pre-Procedure Time Out. Correct Patient: Yes; Correct Procedure: Yes; Correct Site: Yes; Correct Patient Position: Yes; Correct Supplies: Yes; Dried Flammable Prep: Yes; Blood Products Available: N/A;. Lidocaine 1% infiltrated to the right groin. Current Diagnosis : NSTEMI. Arterial access obtained. A 5 irish JL4 catheter in over wire. Multiple views taken of left coronary artery. Catheter removed over the standard wire. A 5 irish JR4 catheter in over wire. Multiple views taken of right coronary artery. Redirected to the SVG. SVG's to RCA visualized and patent. SVG's to Diaganol visualized and patent. Catheter redirecte to HO over the wire. HO to LAD visualized. Catheter removed over the standard wire. A 5 irish AL1 catheter in over wire. SVG's to Diaganol visualized and patent. SVG's to OM visualized and patent. Physician review of films. A Right femoral angiogram was performed to determine safe placement of closure device. Catheter removed over the wire. A Mynx was successful obtaining hemostatsis at the Right Femoral artery insertion site. Mynx placed without complications. No signs or symptoms of hematoma noted. Sterile dressing applied per usual sterile fashion. Lot [id number] EXP 11/24/2025. Post Procedure: Pulses reassessed and unchanged. [id number]. Post-op diagnosis: Patent Bypass Grafts: Severe [place] CAD. PERRLA. Strong, equal hand dural mechanic bilaterally. Medication Waste: Lido- 10 ml Versed- 1 mg Fentanyl- 25 mcg Heparin- 1000 units. Total IV fluids: 50 mL. Fluoro: 7:01. Contrast type used: Visipaque 320 mgI/mL, 200 mL bottle. Complications: None. Estimated blood loss: 5mL-10mL. Responsiveness - Normal response to verbal stimuli; alert and oriented, PERRLA. Airway - Unaffected, no intervention required; spontaneous ventilation. Circulation: W/N/L, pulses unchanged. Nausea/Vomiting: No. Procedure completed. Patient transferred by bed to 1st floor. Vital chart was stopped. Access Site Site: Right Femoral artery Sheath Size: 6 Fr Hemostasis Method: Mynx Hemostasis Success: Successful Procedure Medications Start: 10:24 AM Stop: 10:24 AM Medication: Versed 1 mg and Fentanyl 25 mcg Amount: 1 Route: I.V. Start: 10:30 AM Stop: 10:30 AM Medication: Versed 1 mg and Fentanyl 25 mcg Amount: 1 Route: I.V. Start: 10:38 AM Stop: 10:38 AM Medication: Fentanyl Amount: 25 mcg Route: I.V. Start: 10:40 AM Stop: 10:40 AM Medication: Versed Amount: 1 mg Route: I.V. I, the attending physician, have reviewed and verified all procedure medications. Yes, all medications given per verbal order History/Risk Factors Hypertension: Yes Dyslipidemia: No Peripheral Arterial Disease (PAD): No Myocardial Infarction (NH): No Obesity: No Renal Disease: No Tobacco Use: Former Prior Interventions PCI: No CABG: Yes Valve Surgery: No Report Signatures Finalized by Ned Levi MD on 01/25/2024 01:37 PM
[2024-01-24] MEDS: allopurinol 300 mg Tablet PO (08:31)
[2024-01-24] MEDS: aspirin 81 mg EC Tablet PO (08:31)
[2024-01-24] MEDS: pantoprazole DR 40 mg Tablet PO (08:31)
[2024-01-24] MEDS: metoprolol tartrate 50 mg Tablet PO (08:45)
--- NOTE | 2024-01-24 10:16 | W.PM.OPSUD ---
Surgery/Procedure H&P Update DATE OF PROCEDURE: January 24, 2024 DATE H&P PERFORMED: 01/23/24 H&P UPDATE INFORMATION: I have reviewed H&P completed within last 30 days, I have examined patient prior to procedure and No changes to prior documentation PREOP DIAGNOSIS: NSTEMI PRIMARY INDICATION FOR PROCEDURE: NSTEMI PLANNED PROCEDURE: Left heart cath with possible percutaneous coronary intervention PATIENT REASSESSED PRIOR TO SEDATION, WITH NO CHANGE NOTED: Yes PHYSICAL EXAM: alert, oriented x 3, clear to auscultation bilaterally and regular rate & rhythm AIRWAY EVAL/ANESTHESIA PLAN: normal airway, ASA III, Local Anesthesia, Risks, benefits & alternatives of sedation and/or procedure discussed and Patient agrees to continue as planned ADDITIONAL INFORMATION: Moderate sedation
--- NOTE | 2024-01-24 11:02 | PM.PN ---
Vitals/I&O/Wt Last Vital Signs Temp 97.3 F L 01/24/24 07:45 Pulse 67 01/24/24 07:45 Resp 18 01/24/24 07:45 BP 129/67 01/24/24 07:45 Pulse Ox 99 01/24/24 07:45 O2 Del Method Nasal Cannula 01/24/24 07:45 O2 Flow Rate 2 01/24/24 07:45 01/23/24 01/24/24 01/24/24 22:59 06:59 14:59 Intake Total 274.483 / 274.483 212.833 / 487.316 120 / 120 Balance 274.483 / 274.483 212.833 / 487.316 120 / 120 Weight last 48 hrs Weight 180 lb Weight 180 lb Weight 180 lb Data 01/24/24 06:04 01/24/24 06:04 Coding Level of Care Code Acute Code for Chg Fwd
--- NOTE | 2024-01-24 11:25 | PC.NURSE ---
patient received from manager cath lab via bed. Patient is s/p [facility] through right femoral artery. Minx device deployed in manager cath lab. Site is free from s/s of bleeding or hematoma formation and dressing is c,d,i. Instructed patient and family on site and restrictions. Patient verbalized complete understanding. Will continue to monitor.
[2024-01-24 14:20] LABS: Hematocrit 26.4 % (36-47)
--- NOTE | 2024-01-24 15:29 | P.DS_ITS ---
Discharge Providers Date of Admission: 01/23/24 11:33 Date of Discharge: January 24, 2024 Attending Provider at Admission: Kristian Chin MD Attending Provider at Discharge: Kristian Chin MD Consults: Cardiology: Dr. Levi Primary Care Provider: Tricia Stewart APN Diagnoses at Discharge Discharge Diagnosis (1) Non-ST elevation SD (NSTEMI): Status: Acute (2) Chronic anticoagulation: Status: Acute Permanent problem details: Daily Lovenox (3) Pulmonary embolism: Status: Acute (4) Hx of CABG: Status: Acute (5) Status post transcatheter aortic valve replacement (TAVR) using bioprosthesis: Status: Acute (6) Coronary artery disease: Status: Acute (7) Hypertension: Status: Acute Reason for Visit Reason for Visit: chest tight, high BP, could not wake up Brief History: Lilia Aviles is a 73 year old female with past medical history of 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 As per the daughter who is at bedside daughter woke up earlier in the morning today when she heard a loud snoring voice and found patient to be somnolent, not responsive or waking up to a noxious stimuli. Patient was found hunched over in a recliner. Patient herself does not recall any of the events. By the time EMS arrived patient was already waking up slightly. She was found to have elevated blood pressures with a normal blood sugar. When patient woke up she did complain of mild psych chest tightness. Current on examination patient is awake and alert back to her baseline. She denies any nausea, vomiting, headache, dizziness, chest pain. Patient denies any chest pain on exertion but does complain of occasional shortness of breath on exertion specially on walking fast. Patient did not have any symptoms last night and was actually up for late night spending time with her extended family for Thanksgiving. Denies any history of sleep apnea. She was found to have elevated blood pressures in the ER going up to 178/100 systolic for which she required Nitropaste and she was started on a heparin drip with concerns for non-ST ovation SD given positive delta troponin 2 hours. Hospital Course Hospital Course Patient was admitted to the hospital further evaluation and management of altered mental status which had improved prior to admission, chest tightness with concerns for non-ST elevation SD. Patient was transitioned over to heparin drip from her home Lovenox. On presentation she was found to have elevated blood pressures which were managed by IV medications. During hospitalization she was found to have positive delta troponins. Echocardiogram was done which did not show any regional wall motion normality, showed normal EF with normal functioning and placed aortic valve in setting of recent TAVR. Because of positive delta troponins cardiology was consulted and she underwent cardiac angiogram on 01/23 which showed patent grafts. It is believed patient's presenting symptoms of altered mental status is most likely in setting of undiagnosed sleep apnea which got worsened as she was found hunched over in her recliner. During hospitalization her telemetry, hemoglobin, hemodynamics remained stable, patient remained chest pain-free both at rest and exertion. She is discharged in hemodynamically stable condition with advised to follow-up with her primary care provider within next 1 week, repeat CBC within next 1 week, blood pressure charting and following up with her outpatient concrete paver in 2 weeks for further adjustment of antihypertensive. Patient should also have a sleep study done as an outpatient and might benefit from home CPAP/BiPAP. Safe discharge planning were discussed in detail with patient and patient's family members and they all verbalized understanding. All the questions were answered. Physical Exam Narrative: General: No acute distress, AO x3 HEENT: PERRLA, pupils bilaterally equal and reactive Chest: Normal vesicular breath sounds, no added sounds, equal good air entry bilaterally CVS: S1-S2 regular, no murmurs, no tachycardia, no gallops, no rubs Abdomen: Soft, nontender, no organomegaly, bowel sounds present Neuro: No focal deficits, no facial deformity, AO x3, power 5/5 in all limbs Discharge Data Studies Completed and Pending Completed Studies During Hospitalization Category Date Time Status CT angio chest PE protcl [id number] Stat Cat Scan 01/23/24 08:[address] head wo con* [id number] Stat Cat Scan 01/23/24 07:08 Completed XR chest 1V portable [id number] Stat Exams 01/23/24 06:53 Completed CV. echo complete* [id number] Routine Ultrasound 01/23/24 13:14 Completed Pending at discharge Category Date Time Status [employer]GER request for service Routine Exams 01/24/24 08:18 Ordered Complete Blood Count w/Auto AM LABS Lab 01/25/24 04:00 Ordered Comprehensive Metabolic Panel AM LABS Lab 01/25/24 04:00 Ordered Occult Blood Stool [Immunochemical Fecal OCB] Routine Lab 01/24/24 10:52 Uncollected Platelet Count Q2D Lab 01/25/24 04:00 Ordered Platelet Count Q2D Lab 01/27/24 04:00 Ordered Radiology Impressions Chest X-Ray 01/23/24 06:53 IMPRESSION: Overall improvement with persistent but improved effusion plus infiltrate on the right. Head CT 01/23/24 07:08 IMPRESSION: 1. No acute intracranial pathology. 2. Gliosis with dystrophic calcifications in the right occipital lobe. Chest CTA 01/23/24 08:05 IMPRESSION: 1. No pulmonary embolism. 2. Dilated pulmonary artery from pulmonary hypertension. 3. Atherosclerosis aorta. 4. Small RIGHT pleural effusion with dependent changes at the RIGHT lung base. 5. Mild pulmonary edema. 6. 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 Patient has no metastatic disease. 7. Soft tissue anasarca. Asymmetric soft tissue edema surrounding the RIGHT breast may be related to dependent changes or related to known breast cancer or therapy. ADDENDUM: 01/23/24 1224 IMPRESSION: 6. 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 Patient has KNOWN metastatic disease. Echocardiogram: CONCLUSIONS LV systolic function is normal with EF of 55-60% Grade 1 diastolic dysfunction Mild mitral regurgitation Normally functioning aortic valve. Mild pulmonic regurgitation. No comparison studies are available Ned Levi MD (Electronically Signed) Final Date: 24 January 2024 08:02 S Laboratory Results WBC 2.64 10^3/uL (3.29-11.43) L 01/24/24 06:04 RBC 2.71 10^6/uL (3.85-5.65) L 01/24/24 06:04 Hgb 8.60 g/dL (11.27-16.99) L 01/24/24 14:13 Hct 26.4 % (36-47) L 01/24/24 14:13 MCV 100.4 fl (85-98) H 01/24/24 06:04 MCH 32.8 pg (27-33) 01/24/24 06:04 MCHC 32.7 g/dL (30-55) 01/24/24 06:04 RDW 14.6 % (12.1-15.1) 01/24/24 06:04 Plt Count 116 10^3/cmm (157-399) L 01/24/24 06:04 MPV 9.9 fL (7.4-10.4) 01/24/24 06:04 Neut % (Auto) 67.3 % 01/24/24 06:04 Lymph % (Auto) 21.2 % 01/24/24 06:04 [place] % (Auto) 9.5 % 01/24/24 06:04 Eos % (Auto) 0.8 % 01/24/24 06:04 Baso % (Auto) 0.4 % 01/24/24 06:04 Neut # (Auto) 1.78 10^3/uL (1.8-7.7) L 01/24/24 06:04 Lymph # (Auto) 0.6 10^3/uL (0.8-4.8) L 01/24/24 06:04 [place] # (Auto) 0.3 10^3/uL (0.2-0.9) 01/24/24 06:04 Eos # (Auto) 0.0 10^3/uL (0.0-0.8) 01/24/24 06:04 Baso # (Auto) 0.0 10^3/uL (0.0-0.1) 01/24/24 06:04 Nucleated RBC % (auto) 0 % 01/24/24 06:04 Nucleated RBCs # 0.0 /100WBC 01/24/24 06:04 PT 13.60 SECONDS (12.1-14.9) 01/23/24 07:05 INR 1.01 (0.8-1.2) 01/23/24 07:05 APTT 52.0 SECONDS (23.9-36.7) H 01/24/24 06:04 Sodium 132 mmol/L (136-145) L 01/24/24 06:04 Potassium 4.2 mmol/L (3.5-5.1) 01/24/24 06:04 Chloride 96 mmol/L (98-107) L 01/24/24 06:04 Carbon Dioxide 26 mmol/L (22-29) 01/24/24 06:04 Anion Gap 14.2 (5-19) 01/24/24 06:04 BUN 22 mg/dL (8-23) 01/24/24 06:04 Creatinine 1.1 mg/dL (0.5-0.9) H 01/24/24 06:04 GFR Calculation Not Reportable 01/24/24 06:04 Glucose 97 mg/dL (65-115) 01/24/24 06:04 Estimat Average Glucose 103 01/23/24 07:05 Hemoglobin A1c 5.2 % (4.0-6.0) 01/23/24 07:05 Calculated Osmolality 277 mOsm/kg (285-295) L 01/24/24 06:04 Calcium 9.5 mg/dL (8.5-10.5) 01/24/24 06:04 Phosphorus 3.3 mg/dL (2.5-4.5) 01/24/24 06:04 Magnesium 2.1 mg/dL (1.7-2.3) 01/24/24 06:04 Iron 32 ug/dL (37-145) L 01/23/24 09:10 TIBC 274 mcg/dl 01/23/24 09:10 % Saturation 11.6 % (20-50) L 01/23/24 09:10 Unsat Iron Binding 242 ug/dL (112-347) 01/23/24 09:10 Total Bilirubin 0.3 mg/dL (0.15-1.2) 01/24/24 06:04 AST 16 U/L (0-32) 01/24/24 06:04 ALT 10 U/L (0-33) 01/24/24 06:04 Alkaline Phosphatase 55 U/L (35-105) 01/24/24 06:04 Troponin T Baseline 45 ng/L (0-10) H 01/23/24 07:05 Troponin T 120 Minute 80.33 ng/L (0-10) H 01/23/24 09:10 Delta Troponin T 35.33 ABS# (0-10) H* 01/23/24 09:10 Troponin T Hi Sens 6Hr 134.1 ng/L (0-10) H 01/23/24 14:08 Troponin T Hi Sens 6Hr Delta 89.1 ng/L (0-12) H* 01/23/24 14:08 Total Protein 6.1 g/dL (6.6-8.7) L 01/24/24 06:04 Albumin 3.7 g/dL (3.5-5.2) 01/24/24 06:04 Globulin 2.4 g/dL (1.3-4.6) 01/24/24 06:04 Triglycerides 129 mg/dL (0-150) 01/24/24 06:04 Cholesterol 197 mg/dL (0-200) 01/24/24 06:04 LDL Cholesterol, Calc 133 mg/dL (50-129) H 01/24/24 06:04 HDL Cholesterol 38 mg/dL (60-100) L 01/24/24 06:04 LDL/HDL Ratio 3.50 RATIO (0.00-3.22) H 01/24/24 06:04 Cholesterol/HDL Ratio 5.18 mg/dL (0.0-4.40) H 01/24/24 06:04 Vitamin B12 1163 pg/mL (232-1245) 01/23/24 09:10 Folate > 20.0 ng/mL (4.8-37.3) 01/24/24 06:04 Procalcitonin 0.07 ng/mL (0-0.5) 01/24/24 06:04 TSH 0.90 uIU/mL (0.27-4.20) 01/23/24 09:10 Urine Color Yellow (Yellow) 01/23/24 06:49 Urine Appearance Cloudy (CLEAR) A 01/23/24 06:49 Urine pH 6.0 (5-7) 01/23/24 06:49 Ur Specific [place] 1.013 (1.005-1.030) 01/23/24 06:49 Urine Protein 1+ (Negative) A 01/23/24 06:49 Urine Glucose (UA) 2+ (Normal) H 01/23/24 06:49 Urine Ketones Negative (Negative) 01/23/24 06:49 Urine Blood Negative (Negative) 01/23/24 06:49 Urine Nitrate Negative (Negative) 01/23/24 06:49 Urine Bilirubin Negative (Negative) 01/23/24 06:49 Urine Urobilinogen 0.2 mg/dL (Negative) 01/23/24 06:49 Ur Leukocyte Esterase Negative (Negative) 01/23/24 06:49 Urine RBC 0-2 /hpf (0-2) 01/23/24 06:49 Urine WBC 6-10 /hpf (0-5) 01/23/24 06:49 Ur Squamous Epith Cells 0-5 /hpf (0-5) 01/23/24 06:49 Amorphous Sediment Not Reportable 01/23/24 06:49 Urine Bacteria Exceeds /hpf (NONE) 01/23/24 06:49 Hyaline Casts 1.65 /lpf 01/23/24 06:49 Urine Opiates Screen Negative ng/mL (Negative) 01/23/24 06:49 Ur Barbiturates Screen Negative ng/mL (Negative) 01/23/24 06:49 Ur Phencyclidine Scrn Negative ng/mL (Negative) 01/23/24 06:49 Ur Amphetamines Screen Negative ng/mL (Negative) 01/23/24 06:49 U Benzodiazepines Scrn Negative ng/mL (Negative) 01/23/24 06:49 Urine Cocaine Screen Negative ng/mL (Negative) 01/23/24 06:49 U Marijuana (THC) Screen Negative ng/mL (Negative) 01/23/24 06:49 Vitals Last Vital Signs Temp 98.2 F 01/24/24 11:38 Pulse 65 01/24/24 14:45 Resp 14 01/24/24 14:45 BP 161/75 01/24/24 14:45 Pulse Ox 99 01/24/24 14:30 O2 Del Method Nasal Cannula 01/24/24 11:38 O2 Flow Rate 2 01/24/24 11:38 Discharge Plan Discharge Patient Disposition: Home Condition: Stable Prescriptions: New aspirin 81 mg Tablet,Delayed Release (Dr/Ec) 81 mg PO DAILY Qty: 30 0RF Continued isosorbide mononitrate 30 mg tablet extended release 24 hr 30 mg PO QAM metoprolol succinate 100 mg tablet extended release 24 hr 100 mg PO QAM tramadol 50 mg tablet 50 - 100 mg PO Q4H PRN (Reason: Pain) allopurinol 300 mg tablet 300 mg PO DAILY letrozole 2.5 mg tablet 2.5 mg PO DAILY olmesartan 20 mg tablet 20 mg PO DAILY Ibrance 125 mg Tablet 125 mg PO DAILY Rx Instructions: administer on days 1 through 21 of a 28-day treatment cycle Discharge Orders: Discharge Order (Routine); Ordered 01/24/24 Ordered By: Kristian Chin Referrals: Tricia Stewart APN [Primary Care Provider] - 2 weeks Discharge Diet: Cardiac Discharge Activity: Resume usual activity and Increase activity as tolerated Patient Instructions: Opioid Safety Activity Restrictions/Additional Instructions: Monitor sugars daily and maintain a blood pressure diary. Your goal blood pressure less than 140/90 mmHg. Follow-up with a primary care provider within next 2 weeks for further adjustment of antihypertensive. He should also have a CBC checked when he follow-up with a PCP. He should have a sleep study done as an outpatient with concerns for sleep apnea. Continue her home dose of Lovenox as before. Discharge Attestations Time Spent in Discharge Care*: greater than 30 min Specific Discharge Activities: educating patient, educating and/or supporting family/caregiver, discussing with pcp/other providers, discussing with case resource manager/social workers/dc planners, documenting/other paperwork and evaluating patient/reviewing data Status at Discharge: Cognitive status at discharge: cognitively intact , Behavioral status at discharge: cooperative , Functional status at discharge: uses cane/walker , Overall status at discharge: patient is back to baseline Quality Metrics Clinical Quality Measures [ No reported AMI, CVA or VTE this stay] Coding Level of Care Code 20840 Total time (in minutes) for Discharge: 60 Diagnoses Non-ST elevation SD (NSTEMI) I21.4 Chronic anticoagulation Z79.01 Pulmonary embolism I26.99 Hx of CABG Z95.1 Status post transcatheter aortic valve replacement (TAVR) using bioprosthesis Z95.3 Coronary artery disease I25.10 Hypertension I10
--- NOTE | 2024-01-24 17:39 | PC.NURSE ---
Patient discharged to home. Instruction provided regarding follow up needs and medications. Patient and family all verbalized complete understanding. Patient taken by wheelchair to private vehicle. Home O2 with patient. Family at side to provided transportation.
== END 2024-01-24 17:42 | disposition home or self-care (01) | DRG 155 ==
LOC: ER 07:02 → CSU 11:34
PROVIDERS: Internal Medicine; Admitting Provider Student in an Organized Health Care Education/Training Program; Emergency Provider Family Medicine; PCP Nurse Practitioner Family; Visit Provider Student in an Organized Health Care Education/Training Program
PROC: B2111ZZ Fluoroscopy of Multiple Coronary Arteries using Low Osmolar Contrast (ICD-10-PCS; principal; 2024-01-24 10:00)
DX: G47.30 Sleep apnea, unspecified (principal); C78.00 Secondary malignant neoplasm of unspecified lung; C79.51 Secondary malignant neoplasm of bone; C79.31 Secondary malignant neoplasm of brain; I25.10 Atherosclerotic heart disease of native coronary artery without angina pectoris; C50.919 Malignant neoplasm of unspecified site of unspecified female breast; R73.02 Impaired glucose tolerance (oral); I10 Essential (primary) hypertension; R41.82 Altered mental status, unspecified; R79.89 Other specified abnormal findings of blood chemistry; Z79.01 Long term (current) use of anticoagulants; Z95.3 Presence of xenogenic heart valve; Z99.81 Dependence on supplemental oxygen; Z95.1 Presence of aortocoronary bypass graft; Z86.711 Personal history of pulmonary embolism; Z87.891 Personal history of nicotine dependence
CPT/HCPCS: 36415; 70450; 71045; 71275; 80053; 80061; 80306; 81001; 82607; 82746; 83036; 83540; 83550; 83735; 84100; 84145; 84443; 84484; 85014; 85018; 85025; 85610; 85730; 93005; 93306; 93455; 94664; 96365; 96375; 99152; 99285; A9270; C1760; C1769; C1887; C1894; G0269; J1644; J2250; J3010; J7030; Q9967

== ENCOUNTER 2024-09-19 02:39 | Emergency (ER) | payer MEDICARE, OTHER, SELFPAY ==
--- OUTSIDE RECORDS SUMMARY | 2024-09-17 09:00 | XMS_ITS | Encounter Summary ---
Author Organization [facility] Address [address] [place] [address] Care Team Providers Care Photography Assistant Name Role Phone Stewart, Tricia Solorzano APN Primary Care Provider [phone] Encounter Details Date Type Department Care Team (Latest Contact Info) Description 09/17/2024 9:00 AM CDT - 09/17/2024 11:59 PM CDT Hospital Encounter [facility] Services [address] [place] [address] Alonso Treadwell MD [address] [place] [address] Arrived Discharge Disposition: Home or Self Care Social History Tobacco Use Types Packs/Day Years Used Date Smoking Tobacco: Never Passive Smoke Exposure: Past Smokeless Tobacco: Never Alcohol Use Standard Drinks/Week Comments No 0 (1 standard drink = 0.6 oz pur e alcohol) Comments No Sex and Gender Information Value Date Recorded Sex Assigned at Female 01/29/2023 10:22 AM HOOP MAKER Legal Sex Female 12:00 AM HOOP MAKER Gender Identity Female 01/29/2023 10:22 AM HOOP MAKER Sexual Orientation Straight 01/29/2023 10 :22 AM HOOP MAKER documented as of this encounter Medications at Time of Discharge metoprolol succinate (TOPROL XL) 100 mg Extended Release 24 hour tablet Take 1 tablet by mouth once daily 90 Tablet 09/10/2024 letrozole (FEMARA) 2.5 mg tabletIndications :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),Mass of lower outer quadrant of right breast Take 1 Tablet (2.5 mg) by mouth daily. 90 Tablet 3 05/28/2024 spironolactone (ALDACTONE) 25 mg tablet Take 1/2 (one-half) tablet by mouth once daily 90 Tablet 1 12/09/2022 enoxaparin (LOVENOX) 120 mg/0.8 mL injectionIndicati ons:DVT, lower extremity, recurrent, bilateral (CMS/HCC) Inject 0.7 mL (105 mg) by subcutaneous injection every 24 hours. 90 Each 3 11/25/2022 diphenhydrAMINE (Benadryl Allergy) 25 mg tablet 1 tablet at bedtime as needed Orally Once a day ondansetron (ZOFRAN) 4 mg Tablet TAKE 1 TABLET BY MOUTH EVERY 4 HOURS NEEDED FOR NAUSEA for 8 palbociclib (Ibrance) 125 mg tablet Take 1 Tablet (125 mg) by mouth daily for 3 weeks on, 1 week off. Repeat. 21 Tablet 5 06/28/2022 oxygen home delivery Home Oxygen Concentrator yes at 3 L/M Rest, 3 L/M Activity, 3 L/M Sleep, Delivery Device: Nasal Cannula Portability: yes, 3 L/M Rest, 3 L/M Activity, May provide device best for patient needs(E system,home fill, conserving device) Length of Need: 99 months 1 Each 04/25/2022 nitroglycerin (NITROSTAT) 0.4 mg Tablet, Sublingual Place 1 Tablet (0.4 mg) under tongue every 5 minutes as needed for Chest Pain. 25 Tablet 11 04/22/2022 furosemide (LASIX) 40 mg tablet Take 2 Tablets (80 mg) by mouth daily. 180 Tablet 3 07/24/2021 olmesartan (BENICAR) 40 mg tablet Take 40 mg by mouth daily. Cholecalciferol, Vitamin D3, 50 mcg (2,000 unit) Capsule Take 2 Capsules by mouth daily in the morning. traMADoL (ULTRAM) 50 mg tablet Take 50 mg by mouth every 8 hours as needed. vitamin B complex Tablet Sustained Release Take 1 Tablet by mouth daily. isosorbide mononitrate (IMDUR) 30 mg Extended Release 24 hour tabletIndications :Exertional angina Take 1 Tablet (30 mg) by mouth daily in the morning. 90 Tablet 3 09/07/2020 allopurinoL (ZYLOPRIM) 300 mg tablet Take 300 mg by mouth daily. 12/18/2017 docusate sodium (COLACE) 100 mg capsule Take 1 Capsule (100 mg) by mouth 2 times daily. 09/11/2015 documented as of this encounter Plan of Treatment Upcoming Encounters Date Type Department Care Team (Late st Contact Info) Description 10/22/2024 10:20 AM CDT Appointment [facility] [address] [place], [place] [address] [facility] [address] [place] [address] Alonso Treadwell MD [address] [place] [address] [address] [place] [address] 10/22/2024 11:20 AM CDT Office Visit [facility] [place] [address] [place], [place] [address]e [facility] 2 [place] [address] Alonso Treadwell MD [address] [place] [phone] 10/22/2024 12:00 PM CDT Appointment [facility] [address] [place] [address] [address] [place] [address] Alonso Treadwell MD [address] [place] [address] 11/16/2024 2:40 PM CDT Office Visit [facility] [address] [facility] [address] [place] [address] Scotty Galvan, [facility] [address] [facility] [address] [place] [address] 11/26/2024 8:20 AM CDT Hospital Encounter [facility] [address] [place] [address] Izabel He, DO [address] [facility] [address] [place] [address] 11/26/2024 8:20 AM CDT - 11/26/2024 8:40 AM CDT Surgery [facility] [address] [place] [address] Izabel He, DO [address] [facility] [address] [place] [address] COLONOSCOPY Scheduled Procedures Name Priority Associated Diagnoses Date/Ti me COLONOSCOPY Positive colorectal cancer screening using Cologuard rivera 11/26/2024 8:20 AM CDT documented as of this encounter Goals Goal Patient Goal Type Associated Problems Recent Progress Patient-Stated? Author Autogenerat ed Goal Care Plan Autogenerated Problem No Mary Roy documented as of this encounter Procedures Procedure Name Priority Date/Time Associated Diagnosis Comments CBC WITH DIFFERENTIAL Stat 09/17/2024 9:52 AM CDT 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) COMPREHENSIVE METABOLIC PANEL Stat 09/17/2024 9:52 AM CDT Metastasis from breast cancer ([facility]/HCC) LACTATE DEHYDROGENASE Routine 09/17/2024 9:42 AM CDT Metastasis from breast cancer ([facility]/HCC) documented in this encounter Results * (ABNORMAL) COMPREHENSIVE METABOLIC PANEL (09/17/2024 9:52 AM CDT) SODIUM 134(L) 136 - 145 mmol/L 09/17/2024 10:45 AM CDT [facility] POTASSIUM 4.5 3.5 - 5.1 mmol/L 09/17/2024 10:45 AM CDT [facility] [place] CHLORIDE 100 98 - 107 mmol/L 09/17/2024 10:45 AM CDT [facility] [place] CO2 22 22 - 29 mmol/L 09/17/2024 10:45 AM [facility] [place] CALCIUM 10.3(H) 8.8 - 10.2 mg/dL 09/17/2024 10:45 AM [facility] [place] BUN 27(H) 8 - 23 mg/dL 09/17/2024 10:45 AM [facility] [place] CREATININE 1.43(H) 0.51 - 0.95 mg/dL 09/17/2024 10:45 AM [facility] [place] Comment:The GFR result is no t clinically significant on patients <18 or >70 years of age. GLUCOSE 130(H) 74 - 99 mg/dL 09/17/2024 10:45 AM [facility] [place] TOTAL PROTEIN 7.3 6.4 - 8.3 g/dL 09/17/2024 10:45 AM [facility] [place] ALBUMIN 4.0 3.5 - 5.2 g/dL 09/17/2024 10:45 AM [facility] [place] BILIRUBIN TOTAL 0.4 0.0 - 1.0 mg/dL 09/17/2024 10:45 AM [facility] [place] ALKALINE PHOSPHATASE 61 35 - 104 U/L 09/17/2024 10:45 AM [facility] [place] AST 25 <=33 U/L 09/17/2024 10:45 AM [facility] [place] ALT 13 <=33 U/L 09/17/2024 10:45 AM [facility] [place] GFR 39 mL/min/1.7 3 sq meter 09/17/2024 10:45 AM [facility] [place] Comment:eGFR calculated with 2020 CKD-EPI equation. Vegetarian diet, extremely high or low muscle mass, and may affect results. Cystatin C with Glomerular Filtration Rate is a suitable alternative for these patients. ANION GAP 12 9 - 20 mmol/L 09/17/2024 10:45 AM [facility] [place] Blood Venipuncture / Unknown 09/17/2024 9:52 AM CDT 09/17/2024 10:10 AM CDT Alfreda Correa PROPERTY INVESTOR CHEMISTRY ORDERABLES Final R esult [facility] [place] CLIA# [id number] [id number] [place] [address] * (ABNORMAL) CBC WITH DIFFERENTIAL (09/17/2024 9:52 AM CDT) WBC 3.1(L) 4.8 - 10.8 K/uL 09/17/2024 10:14 AM CDT [facility] [place] RBC 2.83(L) 4.20 - 5.40 M/uL 09/17/2024 10:14 AM CDT [facility] [place] HEMOGLOBIN 9.1(L) 12.0 - 16.0 g/dL 09/17/2024 10:14 AM CDT [facility] [place] HEMATOCRIT 27.4(L) 36.0 - 46.0 % 09/17/2024 10:14 AM CDT [facility] [place] MCV 96.8 82.0 - 100.0 fL 09/17/2024 10:14 AM CDT [facility] [place] MCH 32.2 27.0 - 34.0 pg 09/17/2024 10:14 AM CDT [facility] [place] MCHC 33.2 31.0 - 37.0 g/dL 09/17/2024 10:14 AM CDT [facility] [place] RDW 15.8(H) 11.0 - 14.5 % 09/17/2024 10:14 AM CDT [facility] [place] RDW-STDEV 54.2(H) 37.0 - 54.0 fL 09/17/2024 10:14 AM CDT [facility] [place] PLATELETS 155 140 - 440 K/uL 09/17/2024 10:14 AM CDT [facility] [place] MPV 10.5 8.9 - 12.8 fL 09/17/2024 10:14 [facility] [place] NEUTROPHILS 74 42 - 75 % 09/17/2024 10:14 AM [facility] [place] LYMPHOCYTES 15(L) 24 - 44 % 09/17/2024 10:14 AM [facility] [place] MONOCYTES 8 2 - 10 % 09/17/2024 10:14 AM [facility] [place] EOSINOPHILS 2 0 - 7 % 09/17/2024 10:14 AM [facility] [place] BASOPHILS 1 0 - 1 % 09/17/2024 10:14 AM [facility] [place] IMMATURE GRANULOCYTES 1 0 - 2 % 09/17/2024 10:14 AM [facility] [place] NEUTROPHIL ABSOLUTE 2.31 1.40 - 6.50 K/uL 09/17/2024 10:14 AM [facility] [place] LYMPHOCYTE ABSOLUTE 0.46(L) 1.20 - 4.00 K/uL 09/17/2024 10:14 AM [facility] [place] MONOCYTE ABSOLUTE 0.24 0.10 - 0.60 K/uL 09/17/2024 10:14 AM [facility] [place] EOSINOPHIL ABSOLUTE 0.05 0.00 - 0.70 K/uL 09/17/2024 10:14 AM [facility] [place] BASOPHILS ABSOLUTE 0.03 0.00 - 0.20 K/uL 09/17/2024 10:14 AM [facility] [place] IMMATURE GRANULOCYTES ABSOLUTE 0.02 0.00 - 0.10 K/uL 09/17/2024 10:14 AM [facility] [place] Blood Venipuncture / Unknown 09/17/2024 9:52 AM CDT 09/17/2024 10:09 AM T Alfreda Correa PROPERTY INVESTOR HEMATOLOGY ORDERABLES Final Result [facility] [place] CLIA# [id number] [id number] [place] [address] * (ABNORMAL) LACTATE DEHYDROGENASE (09/17/2024 9:42 AM CDT) LD (LACTATE DEHYDROGENASE) 328(H) 120 - 250 U/L [facility] Comment: Results slightly increased due to hemolysis. Test Performed at: [facility] [address] [place] [address] Rox Soni MD Blood 09/17/2024 9:42 AM CDT 09/17/2024 2:38 PM CDT us Alfreda Correa PROPERTY INVESTOR CHEMISTRY ORDERABLES Final R esult [facility] [phone] [facility] [address] [place] [address] documented in this encounter Visit Diagnoses Diagnosis 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) documented in this encounter Additional Health Concerns Active Problems Noted Date Diagnosed Date Autogenerated Problem 09/10/2024 documented as of this encounter Care Teams Photography Assistant Relationship Specialty Start Date End Date Tricia Stewart APN [address] [place] [id number] PCP - General NURSE PRACTITIONER 09/02/15 documented as of this encounter
--- OUTSIDE RECORDS SUMMARY | 2024-09-17 10:00 | XMS_ITS | Encounter Summary ---
Author Organization [facility] Address 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) Cancer, metastatic to bone (CMS/HCC) Procedures PET TUMOR OR INFECTION IMG W CT SKB MD Alonso Treadwell MD [address] [address] Phone: tel: fax: [facility] Pre-Registration Grant CALL TO MAKE APPOINTMENT ONLY [address] [place] [address] Phone: tel: fax: Referral ID Status Reason Start Date Expiration Date Visits Requested Visits Authorized [id number] Authorized [facility] to Schedule 09/17/2024 10/18/2025 1 1 Reason for Visit * Reason Comments Follow Up Encounter Details Date Type Department Care Team (Late st Contact Info) Description 09/17/2024 10:00 AM CDT Office Visit [facility] Cancer and Hematology [place] [address] [facility] [address] [place] [address] Alonso Treadwell MD [address] [facility] [address] [place] [address] Alfreda Correa NP [address] [address] 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) (Primary Dx); Cancer, metastatic to bone (CMS/HCC); Chronic anemia; Positive colorectal cancer screening using Cologuard test Social History Tobacco Use Types Packs/Day Years Used Date Smoking Tobacco: Never Passive Smoke Exposure: Past Smokeless Tobacco: Never Tobacco Cessation:Counseling Given: Not Answered Alcohol Use Standard Drinks/Week Comments No 0 (1 standard drink = 0.6 oz pur e alcohol) Comments No Sex and Gender Information Value Date Recorded Sex Assigned at Female 01/29/2023 10:22 AM PRACTICE BUSINESS ASST Legal Sex Female 12:00 AM PRACTICE BUSINESS ASST Gender Identity Female 01/29/2023 10:22 AM PRACTICE BUSINESS ASST Sexual Orientation Straight 01/29/2023 10 :22 AM PRACTICE BUSINESS ASST documented as of this encounter Last Filed Vital Signs Vital Sign Reading Time Taken Comments Blood Pressure 132/72 09/17/2024 9:54 AM CDT Pulse 79 09/17/2024 9:54 AM CDT Temperature 36.6 C (97.8 F) 09/17/2024 9:54 AM CDT Respiratory Rate - - Oxygen Saturation 96% 09/17/2024 9:54 AM CDT Inhaled Oxygen Concentration - - Weight 84.6 kg (186 lb 9.6 oz) 09/17/2024 9:54 A M CDT Height 162.6 cm (5' 4 ) 09/17/2024 9:54 AM CDT Body Mass Index 32.03 09/17/2024 9:54 AM CDT documented in this encounter Progress Notes * Alfreda Correa NP - 09/17/2024 10:00 AM CDT TOBACCO COUNSELING She is not a tobacco/nicotine user. [facility] NOTE History of Present illness: The patient initially presented to the ED for evaluation of chest pain and shortness of breath. Thepatient reported I'm just running out of air. The patient's daughter reported symptoms started approximately a month prior to presentation with chest tightness and lower extremity edema. Chest X ray 06/27/2021 done in the ED revealed moderate sized bilateral pleural effusions, partial basilar atelectasis; no pneumothorax; central engorgement. [facility] CTA chest 06/27/2021 showed a large right and moderate left pleural effusions with probable underlying irregular bilateral pleural thickening; multiple left upper lobe pulmonary nodules; largest 1.1 x 3.4 cm in size left upper lobe, irregular 1.1 x 1.4 cm nodular density in the lingula. Multiple enlarged mediastinal lymph nodes-largest 1.8 x 1.1 cm prominent right hilar lymph node largest 2.7 x 4.4cm right hilar mass. Thickening of the skin of the right with a right breast mass 5.9 cm; blastic appearing changes of T1 and T2; probable right breast neoplasm with metastatic disease. Status post right thoracocentesis of 650 mils -06/28/2021 s/p TAVR on 02/04/23 She was admitted after a fall to hospital after 2023 for couple of days- ? Hypoxia from sleep apnea/hypertension- s/p angiogram apparently benign Review of system: Patient with metastatic breast cancer on Letrozole daily and Palbocilib On 3 litre`s oxygen as needed Chronic fatigue. Daughter is present Breathing at baseline No fever/chills or other infectious symptoms. Taking Ca supplement Review of systems otherwise negative for 11 point system apart from those mentioned above Lilia Aviles is a 73 y.o. female with the following history as recorded in [facility]: Patient Active Problem List Diagnosis Date Noted S/P TAVR (transcatheter aortic valve replacement) 02/05/2023 Overview Note: 02/04/23: 23 mm Kinsey-Mounika Ultra bovine prosthesis Pulmonary hypertension (CMS/HCC) 02/04/2023 Severe aortic stenosis 02/04/2023 Overview Note: Low flow, low gradient On home oxygen therapy 02/04/2023 Chronic diastolic CHF (congestive heart failure), NYHA class 3 (CMS/HCC) 02/03/2023 History of pulmonary embolism 02/03/2023 History of DVT (deep vein thrombosis) 02/03/2023 Acute cystitis 02/03/2023 Nonrheumatic aortic valve stenosis 12/04/2022 Overview Note: severe DVT, lower extremity, recurrent, bilateral (CMS/HCC) 06/28/2022 Malignant neoplasm of upper-outer quadrant of right breast in female, estrogen receptor positive ([facility]) 06/28/2022 Malignant pleural effusion ([facility]) 06/28/2022 Hypoxemia 04/24/2022 Hypoxia 04/23/2022 Uterine mass 11/06/2021 Acute deep vein thrombosis (DVT) of both lower extremities ([facility]) 08/29/2021 Hyponatremia 08/23/2021 Acute pulmonary embolism with acute cor pulmonale ([facility]) 08/21/2021 Acute respiratory failure with hypoxia ([facility]) 08/21/2021 HFpEF MCM: Heart Failure Management 07/13/2021 Overview Note: Target weight range: 190-200 as of 10/09/2021 Wt Readings from Last 3 Encounters: 10/09/21 82.3 kg (181 lb 6.4 oz) 10/05/21 83 kg (183 lb) 10/04/21 83.1 kg (183 lb 3.2 oz) ER visits for CHF in last year: 0 Hospitalizations for CHF in last year: 1 Device therapy: none Lowest LVEF & other structural issues: LVEF>40 (HFpEF) Mass of lower outer quadrant of right breast Pleural effusion Cancer, metastatic to bone ([facility]) Type 2 diabetes mellitus with hyperglycemia ([facility]) 06/27/2021 Acute CHF ([facility]) 06/27/2021 Old myocardial infarction 11/28/2016 Dyslipidemia 11/28/2016 ASHD (arteriosclerotic heart disease) 11/23/2015 Palpitations 09/21/2015 Status post coronary artery bypass grafting 09/07/2015 Obesity (BMI 30.0-34.9) 09/04/2015 Benign hypertension 09/02/2015 NSTEMI (non-ST elevated myocardial infarction) ([facility]) 09/02/2015 Chest pain in adult 09/02/2015 Current Outpatient Medications on File Prior to Visit Medication Sig Dispense Refill metoprolol succinate (TOPROL XL) 100 mg Extended Release 24 hour tablet Take 1 tablet by mouth oncedaily 90 Tablet 0 letrozole (FEMARA) 2.5 mg tablet Take 1 Tablet (2.5 mg) by mouth daily. 90 Tablet 3 enoxaparin (LOVENOX) 120 mg/0.8 mL injection Inject 0.7 mL (105 mg) by subcutaneous injection every24 hours. 90 Each 3 diphenhydrAMINE (Benadryl Allergy) 25 mg tablet 1 tablet at bedtime as needed Orally Once a day ondansetron (ZOFRAN) 4 mg Tablet TAKE 1 TABLET BY MOUTH EVERY 4 HOURS NEEDED FOR NAUSEA for 8 palbociclib (Ibrance) 125 mg tablet Take 1 Tablet (125 mg) by mouth daily for 3 weeks on, 1 week off. Repeat. 21 Tablet 5 vitamin B complex Tablet Sustained Release Take 1 Tablet by mouth daily. isosorbide mononitrate (IMDUR) 30 mg Extended Release 24 hour tablet Take 1 Tablet (30 mg) by mouthdaily in the morning. 90 Tablet 3 allopurinoL (ZYLOPRIM) 300 mg tablet Take 300 mg by mouth daily. docusate sodium (COLACE) 100 mg capsule Take 1 Capsule (100 mg) by mouth 2 times daily. spironolactone (ALDACTONE) 25 mg tablet Take 1/2 (one-half) tablet by mouth once daily 90 Tablet 1 oxygen home delivery Home Oxygen Concentrator yes at 3 L/M Rest, 3 L/M Activity, 3 L/M Sleep, Delivery Device: Nasal Cannula Portability: yes, 3 L/M Rest, 3 L/M Activity, May provide device best for patient needs(E system,home fill, conserving device) Length of Need: 99 months 1 Each 0 nitroglycerin (NITROSTAT) 0.4 mg Tablet, Sublingual Place 1 Tablet (0.4 mg) under tongue every 5 minutes as needed for Chest Pain. 25 Tablet 11 furosemide (LASIX) 40 mg tablet Take 2 Tablets (80 mg) by mouth daily. 180 Tablet 3 olmesartan (BENICAR) 40 mg tablet Take 40 mg by mouth daily. Cholecalciferol, Vitamin D3, 50 mcg (2,000 unit) Capsule Take 2 Capsules by mouth daily in the morning. traMADoL (ULTRAM) 50 mg tablet Take 50 mg by mouth every 8 hours as needed. No current facility-administered medications on file prior to visit. Allergies: Alteplase and Atorvastatin Past Medical History: Diagnosis Date Atherosclerosis of [place] coronary artery with unstable angina pectoris (CMS/HCC) 09/04/2015 Breast cancer (CMS/HCC) Diabetes mellitus (CMS/HCC) HTN (hypertension) Obesity (BMI 30.0-34.9) 09/04/2015 Pleural effusion Pleural effusion on left 07/02/2021 Pleural effusion, right (Recurrent) 06/27/2021 Tachycardia Past Surgical History: Procedure Laterality Date HX ANKLE FRACTURE TX Left HX TONSILLECTOMY SD CABG W/ARTERIAL GRAFT SINGLE ARTERIAL GRAFT N/A 09/06/2015 CORONARY ARTERY BYPASS GRAFT WITH JESS performed by Alexandro Moffett MD at [facility] MAIN OR SD NDSC SURG W/VIDEO-ASSISTED HARVEST VEIN CABG Left 09/06/2015 VEIN HARVEST ENDOSCOPIC performed by Alexandro Moffett MD at [facility] MAIN OR SD REPLACE AORTIC VALVE PERQ FEMORAL ARTRY APPROACH N/A 02/04/2023 Transcatheter aortic valve replacement performed by Jakob Ibarra MD at [facility] INVASIVE CARDIOLOGY SD REPLACE AORTIC VALVE PERQ FEMORAL ARTRY APPROACH N/A 02/04/2023 AORTIC VALVE REPLACEMENT TRANSCATHETER performed by Claudia Damon MD at [facility] INVASIVE CARDIOLOGY SD UNLISTED PROCEDURE CARDIAC SURGERY N/A 09/06/2015 CARDIOPULMONARY BYPASS performed by Alexandro Moffett MD at [facility] MAIN OR SD UNLISTED PROCEDURE VASCULAR SURGERY N/A 09/06/2015 ARTERIAL INVASIVE PRESSURE MONITORING LINE INSERTION performed by Alexandro Moffett MD at [facility] MAIN OR THORACENTESIS Right 06/28/2021 US guided (Multiple) THORACENTESIS Left 07/02/2021 US guided Family History Problem Relation Name Age of Onset Cancer Father Hypertension Mother Social History Tobacco Use Smoking status: Never Passive exposure: Past Smokeless tobacco: Never Substance Use Topics Alcohol use: No Alcohol/week: 0.0 standard drinks of alcohol Physical Examination: Blood pressure 132/72, pulse 79, temperature 97.8 ??F (36.6 ??C), temperature source Temporal, height 5' 4 (1.626 m), weight 84.6 kg (186 lb 9.6 oz), SpO2 96%, peak flow (!) 3 L/min, not currently . Body surface area is 1.95 meters squared. General appearance: active, alert, cooperative, no distress, social, Performance Status- 1 HEENT: normocephalic, atraumatic, no conjunctival pallor no scleral icterus, oral cavity examination shows moist mucosa, no oral mucosal lesions Neck: supple, symmetrical, trachea midline, no thyromegaly, no JVD Lymph nodes: no Cervical, supraclavicular, axillary nodes or inguinal lymphadenopathy. Heart: regular rate and rhythm, S1, S2 normal Lungs: breath sounds equal, decreased air entry right lung no wheezing or crepitations bilaterally Abdomen: soft, non-tender. Bowel sounds normal. No organomegaly Chest wall/spine/rib cage: no tenderness Extremities: no cyanosis, moves all extremities equally, minimal ankle edema Skin: Skin color, texture, turgor normal. No rashes or lesions Neurologic: Grossly normal, cranial nerves II-XII grosly intact, normal speech,motor, sensory Intact LABORATORY/RADIOLOGY DATA: Lab Results Component Value Date/Time WBC 4.5 (L) 07/23/2024 09:41 AM HGB 9.2 (L) 07/23/2024 09:41 AM HGBPOC 11.6 (L) 06/27/2021 01:29 PM HCT 28.4 (L) 07/23/2024 09:41 AM HCTPOC 35 (L) 06/27/2021 01:29 PM PLT 161 07/23/2024 09:41 AM MCV 96.9 07/23/2024 09:41 AM Lab Results Component Value Date/Time NA 137 07/23/2024 09:41 AM K 4.6 07/23/2024 09:41 AM CL 102 07/23/2024 09:41 AM CO2 25 07/23/2024 09:41 AM CA 10.4 (H) 07/23/2024 09:41 AM BUN 31 (H) 07/23/2024 09:41 AM CREAT 1.31 (H) 07/23/2024 09:41 AM GLUCOSE 131 (H) 07/23/2024 09:41 AM TOTALPROTEIN 7.1 07/23/2024 09:41 AM ALBUMIN 4.0 07/23/2024 09:41 AM BILITOTAL 0.3 07/23/2024 09:41 AM ALKPHOS 62 07/23/2024 09:41 AM AST 20 07/23/2024 09:41 AM ALT 13 07/23/2024 09:41 AM ANIONGAP 10 07/23/2024 09:41 AM BCRATIO 26 (H) 07/24/2021 03:38 PM CXR Findings: Comparison study 06/07/2021. Moderate-sized bilateral pleural effusions. At least partial basilar atelectasis. No pneumothorax. Central engorgement. Nonspecific cardiac silhouette partially obscured by pleural effusions. Remote CABG. CTA chest IMPRESSION: 1. No pulmonary emboli noted. 2. Large right and moderate left pleural effusions. Probable underlying irregular bilateral pleural thickening. 3. Multiple left upper lobe pulmonary nodules. 4. Mediastinal and bilateral hilar adenopathy. 5. Thickening of the skin of the right breast with a 5.9 cm right breast mass. 6. Blastic appearing changes of T1 and T2. 7. Probable right breast neoplasm with metastatic disease. ASSESSMENT: Metastatic Breast cancer ICD-10-CM ICD-9-CM 1. 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) C79.9 199.1 PET TUMOR OR INFECTION IMG W CT SKB MD C50.919 174.9 2. Cancer, metastatic to bone (CMS/HCC) C79.51 198.5 PET TUMOR OR INFECTION IMG W CT SKB MD 3. Chronic anemia D64.9 285.9 4. Positive colorectal cancer screening using Cologuard test R19.5 787.7 PLAN: 70-year-old female presented with dyspnea to emergency room -Chest X ray 06/27/2021 done in the ED revealed moderate sized bilateral pleural effusions, partial basilar atelectasis; no pneumothorax; central engorgement. The patient was admitted to the hospitalist service for further management. -CTA chest 06/27/2021 showed a large right and moderate left pleural effusions with probable underlying irregular bilateral pleural thickening; multiple left upper lobe pulmonary nodules; largest 1.1 x3.4 cm in size left upper lobe, irregular 1.1 x 1.4 cm nodular density in the lingula. Multiple enlarged mediastinal lymph nodes-largest 1.8 x 1.1 cm prominent right hilar lymph node largest 2.7 x 4.4 cm right hilar mass. Thickening of the skin of the right with a right breast mass 5.9 cm; blastic appearing changes of T1 and T2; probable right breast neoplasm with metastatic disease. -CT scan of the abdomen pelvis with contrast -No focal lesions in the liver. Widespread peritoneal carcinomatosis with extensive omental nodularity in keeping with moderate volume ascites. Possible fibroid posterior fundus No enlarged lymphadenopathy in the abdomen or pelvis widespread osteoblastic metastatic disease noted without pathological fracture especially at L4-L5 -Peritoneal (ascitic) fluid, ThinPrep cytology and cell block- NO MALIGNANT CELLS IDENTIFIED -Status post right thoracocentesis of 650 mils -06/28/2021 -S/p biopsy of the right breast mass 06/29/2021- Invasive moderately differentiated ductal carcinoma - Carcinoma extends to all edges of the specimen. The tumor morphology is consistent with a breast primary. Since there is widely metastatic disease a battery of immunohistochemistry stains were obtained to confirm this impression. The neoplasm is positive for CK7, GATA3 and mammaglobin. It is negative with CK20, TTF-1 and Napsin. This staining pattern supports a breast primary ER positive 97%SD positive 27%Her-2 IHC-1+veKi-67 by (IHC) - Percentage of Positive Nuclei: 8% PET scan -08/20/2022 decrease in the size of right upper quadrant density down to 1.6 cm from previous measurement of 2.8 cm with SUV down from 5.37-3.46. Reduction in extensive mediastinal lymphadenopathy right paratracheal 1.2 cm lymph node now 0.9 cm SUV decreased from 6.28-2.52. Decrease in the size of right lung nodule with decreased activity. Increased activity of the right pleural-based nodule. Stable omental nodules no new lesions. Decrease in the activity of the multiple pulm lesions including at L5 and C6 Right Malignant Pleural Effusion: Right pleural fluid, ThinPrep and cell block-- Positive for malignancy 08/30/2021- CT chest wo contrast-03/22/2022-slight decrease in the size of the AP window, subcarinal lymph node 1.3 cm, Decrease in the size of the consolidation in the left upper lobe, decrease in the size of the complex loculated right pleural effusion decrease in pseudotumor formation right major fissure. Stable right breast lesion -S/p Pleuryx cath right side on 10/05/2021- not able to drain via Pleurx catheter-referred to CT surgery -S/p TPA through the tube to break clot in pleuryx cath in right chest- with Ct surgery Dr. Younger CT chest 04/23/2022 showed no significant change in the complex pleural- parenchymal disease in the right hemithorax with moderate-sized right pleural effusion and consolidation in the right lower lobe -Ct chest 07/04/2022- Slight interval increase in small left pleural effusion with associated pleural thickening. Small complex right pleural effusion associated with extensive pleural thickening and subjacent parenchymal consolidation again noted. Stable lingular nodular opacity. -No drainage through Pleurx catheter- seen by CT surgery and Pulmonology- pleuryx cath taken out PE/DVT; Admitted with worsening dyspnea to emergency room on 08/21/2021-discharged on 08/31/2021- CTA chest showed right upper lobe segmental and subsegmental nonocclusive PE stable right large right breast mass previous lymphadenopathy. Multifocal osteoblastic lesions bilateral pleural effusionsright greater than on the left -Venous Doppler bilateral lower extremities 06/18/2022 showed DVT lower extremities bilaterally -Right UE swelling- she wants to watch it for now since its painless and she is on AC -She stopped Eliquis and started on ASA in about 3 weeks On Lovenox 1.5 mg/kg dose daily- continue She gets drug assistance program to get renewed every month BM biopsy -03/22/2022- Mildly hypocellular bone marrow with relative erythroid hyperplasia, mild myeloid hypoplasia, and normal-appearing megakaryopoiesis KARYOTYPE: 46,XX[20] Cytogenetic analysis shows a normal female karyotype in all cells analyzed. Started on Letrozole Palbocilib 07/25/2021-3 weeks on and one week off PET Scan 05/01/2023-overall stable to improving disease Increased activity over the right breast without increase in the size of the lesion with SUV of 7.4. He has no adenopathy stable with SUV around 2.7. Malignant right pleural effusion stable to decrease. Pleural-based nodule decreased in size. Extensive omental caking improved overall with a residual SUV 7.7. Improvement in the activity over the bone mets PET scan 02/06/2024 Right breast mass with SUV of 9.9 stable in size with slight increase in activity otherwise no significant activity in the chest including in the lymph nodes No significant activity in the abdomen or pelvis. Sclerotic bone lesions noted with T12 with SUV of6.7, mild activity at L1 Chronic Anemia : Lab Results Component Value Date/Time IRON 104 04/30/2024 09:57 AM TIBC 330 04/30/2024 09:57 AM FERRITIN 431.8 (H) 04/30/2024 10:04 AM B12- 1999 Serum folate- 24 Denies GI bleeds Cytopenia from Palbociclib- Continue with letrozole daily and Palbocilib Metastatic bone disease- Xgeva q 4-6 weekly Daily calcium and vit D while on AI and Xgeva -MRI hip wwo contrast- 03/01/2022- Extensive osseous metastatic disease of the axial and imaged proximal appendicular skeleton with greater than 50% cortical loss of the left femoral neck present placing this patient at high risk for pathologic fracture. -S/p consult with Ortho at 04/08/2022- Dr. Montiel ( reviewed consult note and work up ) The tumor appears to be mostly blastic in appearance on MRI without significant cortical erosion. Given she is asymptomatic, we will defer any acute surgical intervention at this time A positive Cologuard test result was reported. A follow-up colonoscopy scheduled 11/2024 Not address: S/p Thyroid, left inferior pole nodule, fine-needle aspiration-- Benign - Consistent with a colloidnodule She has appointment with Endocrinology in late Jan 2023 CAD- scheduled for Coronary Angiogram in 2 weeks (work up for TAVR) Reviewed echo 11/29/2022- moderate to severe , moderate AR, moderate SD Systolic function is normal. The left ventricular ejection fraction is 55% -S/p Angiogram and work up- 12.20.2022- -S/p TAVR with placement of 23 mm Kinsey-Mounika Ultra bovine prosthesis without complication. 02/04/2023 Schedule: MKT in 4-5 weeks cbc/dif/cmp/LDH/ Xgeva documented in this encounter Plan of Treatment Upcoming Encounters Date Type Department Care Team (Late st Contact Info) Description 10/22/2024 10:20 AM CDT Appointment [facility] Services [address] [place] [address] Alonso Treadwell MD [address] [place] [address] 10/22/2024 11:20 AM CDT Office Visit [facility] Cancer and Hematology [place] [address] [place] [id number] Alonso Treadwell MD [address] [place] [address] 10/22/2024 12:00 PM CDT Appointment [facility] [address] [place] [address] Alonso Treadwell MD [address] [place] [address] 11/16/2024 2:40 PM CDT Office Visit [facility] [address] [facility] [address] [place] [address] Scotty Galvan, [facility] [address] [facility] [address] [place] [address] 11/26/2024 8:20 AM CDT Hospital Encounter [facility] Endoscopy [address] 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
--- OUTSIDE RECORDS SUMMARY | 2024-09-17 10:25 | XMS_ITS | Encounter Summary ---
Author Organization [facility] Address [address] [place] [address] Care Team Providers Care Shrimp Trawler Name Role Phone Stewart, Tricia Solorzano APN Primary Care Provider [phone] Reason for Visit * Tx/Med Therapy Plan Auth (Routine) - Authorized Specialty Diagnoses / Procedures Referred By Contac t Referred To Contact Diagnoses Mass of lower outer quadrant of right breast Cancer, metastatic to bone (CMS/HCC) Procedures [place] DENOSUMAB INJECTION xgeva Alonso Treadwell MD [address] [facility] [address] [place] [address] Phone: tel: fax: [facility] [address] [facility] [address] [place] [address] Phone: tel: fax: Referral ID Status Reason Start Date Expiration Date V isits Requested Visits Authorized [id number] Authorized 07/12/2021 02/23/2025 99 99 Encounter Details Date Type Department Care Team (Latest Contact Info) Description 09/17/2024 10:25 AM CDT - 09/17/2024 11:59 PM CDT Hospital Encounter [facility] [address] [facility] [address] [place] [address] Alonso Treadwell MD [address] [facility] [address] [place] [address] Discharge Disposition: Home or Self Care Social History Tobacco Use Types Packs/Day Years Used Date Smoking Tobacco: Never Passive Smoke Exposure: Past Smokeless Tobacco: Never Alcohol Use Standard Drinks/Week Comments No 0 (1 standard drink = 0.6 oz pur e alcohol) Comments No Sex and Gender Information Value Date Recorded Sex Assigned at Female 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 09/11/2015 documented as of this encounter Progress Notes * Selin Wright RN - 09/17/2024 11:03 AM CDT Injection Provider on site: Will proceed with Xgeva 120 mg to right lower abd Injection Verification: Complete order checks were performed to verify the following: patient name and , the treatment plan per [place], dose and volume, within the Electronic Health Record (EHR). Dosage calculations were verified prior to administration to be in an appropriate range. Vital signs, lab values, and patient condition reviewed and found to be within appropriate limits. Applicable consents on file. Treatment reviewed with patient and/or family. Patient/family instructed to notify staff of any s/sof a reaction, including but not limited to: itching, swelling, pain/tenderness at injection site, nausea, vomiting, or generalized discomfort. Tolerance: Patient is tolerating treatment with no s/s of adverse reaction at this time. documented in this encounter Plan of Treatment Upcoming Encounters Date Type Department Care Team (Late st Contact Info) Description 10/22/2024 10:20 AM CDT Appointment [facility] [address] [place] [address] Alonso Treadwell MD [address] [place] [address] 10/22/2024 11:20 AM CDT Office Visit [facility] [place] [address] [facility] [address] [place] [address] Alonso Treadwell MD [address] [facility] [address] [place] [address] 10/22/2024 12:00 PM CDT Appointment [facility] [address] [facility] [address] [place] [address] Alonso Treadwell MD [address] [facility] [address] [place] [address] 11/16/2024 2:40 PM CDT Office Visit [facility] [address] [facility] [address] [place] [address] Scotty Galvan, [facility] [address] [facility] [address] [place] [address] 11/26/2024 8:20 AM CDT Hospital Encounter [facility] [address] [place] [address] Izabel He DO [address] [facility] [address] [place] [address] 11/26/2024 8:20 AM CDT - 11/26/2024 8:40 AM CDT Surgery [facility]oscopy [address] [place] [address] Izabel He, [address] [facility] [address] [place] [id number] COLONOSCOPY Scheduled Procedures Name Priority Associated Diagnoses Date/Ti me COLONOSCOPY Positive colorectal cancer screening using Cologuard rivera 11/26/2024 8:20 AM CDT documented as of this encounter Goals Goal Patient Goal Type Associated Problems Recent Progress Patient-Stated? Author Autogenerat ed Goal Care Plan Autogenerated Problem No Mary Roy documented as of this encounter Visit Diagnoses Diagnosis Mass of lower outer quadrant of right breast- Primary Cancer, metastatic to bone (CMS/HCC) Secondary malignant neoplasm of bone and bone marrow documented in this encounter Administered Medications Inactive Administered Medications - up to 3 most recent administrations Medication Order MAR Action Action Date Dose Rate Site denosumab (XGEVA) 120 mg/1.7 mL (70 mg/mL) subcut injection 120 mg 120 mg, subCUT, ONE TIME ONLY, 1 dose, On Fri09/17/24 at 1100, RoutineIndications:Mass of lower outer quadrant of right breast,Cancer, metastatic to bone (CMS/HCC) Given 09/17/2024 10:59 AM CDT 120 mg Abdomen, Right Lower Quadrant documented in this encounter Additional Health Concerns Active Problems Noted Date Diagnosed Date Autogenerated Problem 09/10/2024 documented as of this encounter Care Teams Shrimp Trawler Relationship Specialty Start Date End Date Tricia Stewart APN [facility] [address] [place] [address] PCP - General NURSE PRACTITIONER 09/02/15 documented as of this encounter
[2024-09-19 02:43] VITALS: BMI 29.2
--- OUTSIDE RECORDS SUMMARY | 2024-09-19 02:46 | XMS_ITS | Encounter Summary ---
Author Organization [facility] Address [address] [place] [address] Care Team Providers Care Instructor Private Name Role Phone Tricia Stewart APN Primary Care Provider [phone] Encounter Details Date Type Department Care Team (Late st Contact Info) Description 04/02/2007 Outpatient Historical [facility] [address] [address] Donavon Gonzalez MD [address] [address] Social History Tobacco Use Types Packs/Day Years Used Date Smoking Tobacco: Never Assessed Comments Unknown Sex and Gender Information Value Date Recorded Sex Assigned at Not on file Legal Sex Female 6:36 AM COSMETIC CONSULTANT Gender Identity Not on file Sexual Orientation Not on file documented as of this encounter Progress Notes * Donavon Gonzalez MD - 04/02/2007 12:00 AM CST Patient Name: Lilia Aviles DOS: 04/02/2007 : 1950 CHIEF COMPLAINT: Annual exam. HISTORY OF PRESENT ILLNESS: Lizzy is a 56-year-old 2, para 2 female whose last menstrual period was September of 2006. Her last pap smear was 03/02. Last mammogram was unknown. Annual mammograms have been advised and offered to assist in scheduling this today. PAST MEDICAL HISTORY/FAMILY HISTORY/SOCIAL HISTORY: Reviewed. 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 IMPRESSION: Yearly exam. PLAN: Pap obtained today. Screening mammogram as above. Will check an FSH to assess menopausal status. She will followup yearly or p.r.n. Donavon Gonzalez M.D. INSTRUCTIONAL SERVICES SPECIALIST, [place] Electronically Signed by Donavon Gonzalez M.D. 04/13/2007 08:22 , A, 560 Document #: [id number] cc: ETIC CONSULTANT documented in this encounter Miscellaneous Notes * Letter - Donavon Gonzalez MD - 04/02/2007 12:00 AM CST 04/02/2007 Lilia Aviles r [address] [place] [id number] Dear Ms. Aviles: I have received the results of your recent cervical Pap smear test that was taken in my office. This has been reported as negative (no evidence of malignancy and no evidence of any pre-malignant change.) As a form of good preventive medicine, it is advisable for the average woman to have this test performed once per year. However, if different recommendations have been made for you, you should followthose recommendations. Please feel free to call my office if you have any questions. Sincerely, Donavon Gonzalez M.D. INSTRUCTIONAL SERVICES SPECIALIST, [place] Electronically Signed by Donavon Gonzalez M.D. 04/06/2007 13:03 , P, mw Job #: Document #: [id number] cc: ETIC CONSULTANT documented in this encounter Plan of Treatment Not on file documented as of this encounter Procedures Procedure Name Priority Date/Time Associated Diagnosis Comments FSH Routine 04/02/2007 4:00 PM COSMETIC CONSULTANT documented in this encounter Results * FSH (04/02/2007 4:00 PM COSMETIC CONSULTANT) FSH 85.1 mIU/ML [facility] FSH FOLLICULAR PHASE 3.5 - 12.5 mIU/ML MID-CYCLE PEAK 4.7 - 21.5 mIU/ML LUTEAL PHASE 1.7 - 7.7 mIU/ML POSTMENOPA USAL 25.8 - 134.8 mIU/ML [facility] 04/02/2007 4:00 PM COSMETIC CONSULTANT 04/02/2007 4:05 PM COSMETIC CONSULTANT us Donavon Gonzalez MD CHEMISTRY ORDERABLES Final R esult [facility] CLIA# [id number] [address] [place] [address] documented in this encounter Visit Diagnoses Not on filedocumented in this encounter Care Teams Instructor Private Relationship Specialty Start Date End Date Tricia Stewart APN [address] [address] PCP - General NURSE PRACTITIONER 09/02/15 documented as of this encounter
--- OUTSIDE RECORDS SUMMARY | 2024-09-19 02:46 | XMS_ITS ---
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 Name Role Phone Terry, Tricia Solorzano APN Primary Care Provider [phone] Active Problems Problem Noted Date Diagnosed Date S/P TAVR (transcatheter aortic valve replacement ) 02/05/2023 Overview (02/05/2023): 02/04/23: 23 mm Kinsey-Mounika Ultra bovine prosthesis Pulmonary hypertension 02/04/2023 Severe aortic stenosis 02/04/2023 Overview (02/04/2023): Low flow, low gradient On home oxygen therapy 02/04/2023 Chronic diastolic CHF (conge stive heart failure), NYHA class 3 02/03/2023 History of pulmonary embolism 02/03/2023 History of DVT (deep vein thrombosis) 02/03/2023 Acute cystitis 02/03/2023 Nonrheumatic aortic valve stenosis 12/04/2022 Overview (02/03/2023): severe DVT, lower extremity, recurrent, bilateral 06/28 Malignant neoplasm of upper- outer quadrant of right breast in female, estrogen receptor positive 06/28/2022 Malignant pleural effusion 06/28/2022 Hypoxemia 04/24/2022 Hypoxia 04/23/2022 Uterine mass 11/06/2021 Acute deep vein thrombosis (DVT) of both lower e xtremities 08/29/2021 Hyponatremia 08/23/2021 Acute pulmonary embolism with acute cor pulmonal e 08/21/2021 Acute respiratory failure with hypoxia 2 HFpEF MCM: Heart Failure Management 07/13/2021 Overview (10/09/2021): Target weight range: 190-200 as of 10/09/2021 Wt Readings from Last 3 Encounters: 10/09/21 82.3 kg (181 lb 6.4 oz) 10/05/21 83 kg (183 lb) 10/04/21 83.1 kg (183 lb 3.2 oz) ER visits for CHF in last year: 0 Hospitalizations for CHF in last year: 1 Device therapy: none Lowest LVEF & other structural issues: LVEF>40 (HFpEF) Assessment & Plan (10/09/2021 11:00 AM CDT): HPI 10/09/2021: Patient had Pleurex catheter placed on 10/05, 1L removed at that time. She drained 800 mL off on Friday. States she was only sent home with 1 drainage kit and therefore is now out. She did order more supplies yesterday but is unsure when it will be delivered. She reports increasing chest congestion today. She does state that her breathing is currently stable and she denies significant peripheral edema. She feels as if she will have to drain her lung about every other day. States her [id number] has been helping her with it. BP (!) 149/89 Pulse 69 Wt 82.3 kg (181 lb 6.4 oz) BMI 31.14 kg/m Wt Readings from Last 3 Encounters: 10/09/21 82.3 kg (181 lb 6.4 oz) 10/05/21 83 kg (183 lb) 10/04/21 83.1 kg (183 lb 3.2 oz) TTE 06/28/21: LVEF 60-65%, LV DD, no sig valve issues HFpEF Current plan Notes SGLT2-I (2a rec) Consider starting sglt2 inhibitor for CHF MRA (2b rec) Consider starting spironolactone- recent hyperkalemia ARNI or ARB (2b) olmesartan (BENICAR) 40 mg tablet [[id number]] Diuretic as needed (class 1 rec) furosemide (LASIX) 40 mg tablet [[id number]] decreased to 80mg daily on 08/15 due to renal function Advance Care Planning & code status Full Code Would benefit from palliative care consult- declined Medication compliance: compliance most of the time Dietary compliance: noncompliance some of the time Goals of care discussed: not today Plan: -Cardiology f/u 10/11 -Continue medications as prescribed. -will call local DME to see if they carry the Pleurx drain kit Contingency plan: for weight gain of 3lbs in 24hrs or 5lbs overall, take extra 40mg of lasix x2 days HAILEE Drummond Assessment & Plan (10/04/2021 12:47 PM CDT): HPI 10/04/2021: Contacted patient for abnormal survey. Pt reports that she is more SOB today. She is scheduled to have pluerex catheter tomorrow morning at 0730. Her daughter is picking her up this afternoon and they plan on staying the night in [place] to be near the hospital for planned procedure. Pt denies chest pain, pressure or increase LE edema. Weight remains stable. Pt is speaking in clear and complete sentences with ease. She tells me that she is fine as long as she is resting. With any activity, she admits feeling breathless. I encouraged patient to check SP02 however her equipment is in the other room and she is currently resting comfortably. I offered to reach out to her Oncologist to see if we could arrange for sooner treatment, pt declines at this time. She states I think it will be fine BP (!) 142/83 Pulse 70 Wt 83.1 kg (183 lb 3.2 oz) BMI 31.45 kg/m Wt Readings from Last 3 Encounters: 10/04/21 83.1 kg (183 lb 3.2 oz) 10/02/21 83.6 kg (184 lb 3.2 oz) 09/25/21 84 kg (185 lb 1.6 oz) TTE 06/28/21: LVEF 60-65%, LV DD, no sig valve issues HFpEF Current plan Notes SGLT2-I (2a rec) Consider starting sglt2 inhibitor for CHF MRA (2b rec) Consider starting spironolactone- recent hyperkalemia ARNI or ARB (2b) olmesartan (BENICAR) 40 mg tablet [[id number]] Diuretic as needed (class 1 rec) furosemide (LASIX) 40 mg tablet [[id number]] decreased to 80mg daily on 08/15 due to renal function Advance Care Planning & code status Full Code Would benefit from palliative care consult- declined Medication compliance: compliance most of the time Dietary compliance: noncompliance some of the time Goals of care discussed: not today Plan: -Pleurex placement on Friday. -Pt will proceed to Emergency Room for any worsening SOB. -Cardiology f/u 10/11 -Continue medications as prescribed. Contingency plan: for weight gain of 3lbs in 24hrs or 5lbs overall, take extra 40mg of lasix x2 days Lily Lake RN Assessment & Plan (10/02/2021 10:52 AM CDT): HPI 10/02/2021: Met with patient today by 2 way audio/video visit for routine check in. Pt reports that she is feeling well today. She is visualized on video, speaking in clear and complete sentences with ease. Pt is scheduled for pleurex catheter placement on Friday morning. Pt does admit to some worsening ALEXIS, but she states Its not too bad She feels like she will be ok until Friday. Encouraged patient to report any worsening shortness of breath promptly. Pt denies LE edema, chest pain or pressure. Weight is stable. BP 129/81 Pulse 68 Wt 83.6 kg (184 lb 3.2 oz) BMI 31.62 kg/m Wt Readings from Last 3 Encounters: 10/02/21 83.6 kg (184 lb 3.2 oz) 09/25/21 84 kg (185 lb 1.6 oz) 09/21/21 83 kg (183 lb) TTE 06/28/21: LVEF 60-65%, LV DD, no sig valve issues HFpEF Current plan Notes SGLT2-I (2a rec) Consider starting sglt2 inhibitor for CHF MRA (2b rec) Consider starting spironolactone- recent hyperkalemia ARNI or ARB (2b) olmesartan (BENICAR) 40 mg tablet [[id number]] Diuretic as needed (class 1 rec) furosemide (LASIX) 40 mg tablet [[id number]] decreased to 80mg daily on 08/15 due to renal function Advance Care Planning & code status Full Code Would benefit from palliative care consult- declined Medication compliance: compliance most of the time Dietary compliance: noncompliance some of the time Goals of care discussed: not today Plan: -Pleurex placement on Friday. -Cardiology f/u 10/11 -Continue medications as prescribed. -report new or worsening symptoms promptly. Contingency plan: for weight gain of 3lbs in 24hrs or 5lbs overall, take extra 40mg of lasix x2 days Lily Lake RN Assessment & Plan (09/25/2021 11:29 AM CDT): HPI 09/25/2021 Met with patient today for weekly check in. Pt reports that she is feeling well today. Denies increased LE edema. She does admit to mild ALEXIS. She recently had R sided thoracentesis. She reports this gave her significant relief with SOB. Oncology is planning to place a pleurex catheter with her next thoracentesis. Pt denies any new or worsening symptoms at this time. She is scheduled to f/u with Cardiology on 10/11. BP 133/77 Pulse 73 Wt 84 kg (185 lb 1.6 oz) BMI 31.77 kg/m Wt Readings from Last 3 Encounters: 09/25/21 84 kg (185 lb 1.6 oz) 09/21/21 83 kg (183 lb) 09/20/21 83.5 kg (184 lb) TTE 06/28/21: LVEF 60-65%, LV DD, no sig valve issues HFpEF Current plan Notes SGLT2-I (2a rec) Consider starting sglt2 inhibitor for CHF MRA (2b rec) Consider starting spironolactone- recent hyperkalemia ARNI or ARB (2b) olmesartan (BENICAR) 40 mg tablet [[id number]] Diuretic as needed (class 1 rec) furosemide (LASIX) 40 mg tablet [[id number]] decreased to 80mg daily on 08/15 due to renal function Advance Care Planning & code status Full Code Would benefit from palliative care consult- declined Medication compliance: compliance most of the time Dietary compliance: noncompliance some of the time Goals of care discussed: not today Plan: -Cardiology f/u 10/11 -Continue medications as prescribed. -report new or worsening symptoms promptly. Contingency plan: for weight gain of 3lbs in 24hrs or 5lbs overall, take extra 40mg of lasix x2 days Lily Lake RN Assessment & Plan (09/18/2021 11:57 AM CDT): HPI 09/18/2021 Met with patient by phone today for weekly check in. Pt reports that she is feeling ok today. Pt continues to have ALEXIS. She denies SOB at rest. Pt states that her ALEXIS may be slightly worse today. She denies chest pain or pressure. She is speaking in clear and complete sentences with ease. Pt reports LE edema. She is taking Furosemide 80 mg daily. Suggested patient take an additional 80 mg today x 1. Pt tells me that this typically does not help and would prefer to hold off for now. Pt is scheduled for R thoracentesis on and will follow up with Dr. Treadwell on Friday. BP (!) 148/86 Pulse 71 Wt 82.4 kg (181 lb 9.6 oz) BMI 31.17 kg/m Wt Readings from Last 3 Encounters: 09/18/21 82.4 kg (181 lb 9.6 oz) 09/10/21 84.4 kg (186 lb) 09/04/21 84.3 kg (185 lb 12.8 oz) TTE 06/28/21: LVEF 60-65%, LV DD, no sig valve issues HFpEF Current plan Notes SGLT2-I (2a rec) Consider starting sglt2 inhibitor for CHF MRA (2b rec) Consider starting spironolactone- recent hyperkalemia ARNI or ARB (2b) olmesartan (BENICAR) 40 mg tablet [[id number]] Diuretic as needed (class 1 rec) furosemide (LASIX) 40 mg tablet [[id number]] decreased to 80mg daily on 08/15 due to renal function Advance Care Planning & code status Full Code Would benefit from palliative care consult- declined Medication compliance: compliance most of the time Dietary compliance: noncompliance some of the time Goals of care discussed: not today Plan per ZUM[employer] INSTRUCTOR Sara: -Recommended that patient take an additional 80 mg of Furosemide today. -Weigh daily. Report worsening SOB or LE edema. -F/U with Dr. Treadwell on Friday. Contingency plan: for weight gain of 3lbs in 24hrs or 5lbs overall, take extra 40mg of lasix x2 days Lily Lake RN Assessment & Plan (08/21/2021 11:05 AM CDT): HPI 08/21/2021 Patient reports severe SOB with minimal exertion, states it is getting worse. Reports she is huffing and puffing with activity which then leads to coughing. She has been afebrile. Reports mild SOB at rest and wheezing. States she held a fan to her face yesterday which helped. She continues to sleep upright in her recliner which is not new for her. Reports worsening pitting edema/tightness in left leg, tried to wear compression sock but hurt too badly. Also reports a blister on her left foot. Right leg not as bad as left. She is urinating well. Has an albuterol inhaler but has not used it. I reached out to oncology who believes symptoms are HF related. Seen by oncology on 08/17: -CXR -PA/lateral today- High-grade central vascular engorgement with bibasilar airspace infiltrates and/or atelectasis and small to moderate effusions remaining right greater than left and similar to the prior study. No pneumothorax. -Lab only cbc/diff today -Refer to [employer] Operator soon for ? Fibroid vs malignant lesion in uterus -F/u with me ONLY in 5- 6 weeks with cbc/dif/cmp/ Xgeva BP (!) 142/91 Pulse 90 Wt 87.4 kg (192 lb 9.6 oz) BMI 33.06 kg/m Wt Readings from Last 3 Encounters: 08/21/21 87.4 kg (192 lb 9.6 oz) 08/17/21 86.6 kg (191 lb) 08/14/21 85.4 kg (188 lb 3.2 oz) TTE 06/28/21: LVEF 60-65%, LV DD, no sig valve issues HFpEF Current plan Notes SGLT2-I (2a rec) Consider starting sglt2 inhibitor for CHF MRA (2b rec) Consider starting spironolactone- recent hyperkalemia ARNI or ARB (2b) olmesartan (BENICAR) 40 mg tablet [[id number]] Diuretic as needed (class 1 rec) furosemide (LASIX) 40 mg tablet [[id number]] decreased to 80mg daily on 08/15 due to renal function Advance Care Planning & code status Full Code Would benefit from palliative care consult Medication compliance: compliance most of the time Dietary compliance: noncompliance some of the time Goals of care discussed: not today Plan: -increase Lasix to 80mg BID today and tomorrow -if symptoms worsen or oxygen sats <90%, call MV immediately -low threshold for ER -needs repeat BMP later in the week or early next week Contingency plan: for weight gain of 3lbs in 24hrs or 5lbs overall, take extra 40mg of lasix x2 days HAILEE Drummond Assessment & Plan (08/14/2021 10:39 AM CDT): HPI 08/14/2021 Patient reports her left ankle is more swollen today. She states that she believes she ate something with more sodium in it yesterday. Her weight is currently stable. Patient reports that breathing is currently at baseline however continues to report dyspnea on exertion. She admits that on Friday she could not hardly do anything, was very short of breath and had to rest to settle it down . States that she slept well last night and felt much better yesterday. Pt will follow up with Oncology 08/17 Briefly discussed quality of life and goals of care. Patient happy with current treatment and plan of care. States she plans to see how things progress with her cancer treatment. Lab Results Component Value Date/Time NA 133 (L) 07/24/2021 03:38 PM K 4.7 07/24/2021 03:38 PM CL 95 (L) 07/24/2021 03:38 PM CO2 27 07/24/2021 03:38 PM CA 10.1 07/24/2021 03:38 PM BUN 35 (H) 07/24/2021 03:38 PM CREAT 1.34 (H) 07/24/2021 03:38 PM GLUCOSE 67 07/24/2021 03:38 PM ANIONGAP 11 07/12/2021 09:11 AM BCRATIO 26 (H) 07/24/2021 03:38 PM BP (!) 144/86 Pulse 75 Wt 85.4 kg (188 lb 3.2 oz) BMI 32.30 kg/m Wt Readings from Last 3 Encounters: 08/14/21 85.4 kg (188 lb 3.2 oz) 08/07/21 85.9 kg (189 lb 4.8 oz) 07/31/21 88.3 kg (194 lb 9.6 oz) TTE 06/28/21: LVEF 60-65%, LV DD, no sig valve issues HFpEF Current plan Notes SGLT2-I (2a rec) Consider starting sglt2 inhibitor for CHF MRA (2b rec) Consider starting spironolactone- recent hyperkalemia ARNI or ARB (2b) olmesartan (BENICAR) 40 mg tablet [[id number]] Diuretic as needed (class 1 rec) furosemide (LASIX) 40 mg tablet [[id number]] Taking 80mg in AM and 40mg in PM Advance Care Planning & code status Full Code Would benefit from palliative care consult Medication compliance: compliance most of the time Dietary compliance: noncompliance some of the time Goals of care discussed: not today Plan: -Pt will report new or worsening symptoms promptly. -BMP and CBC today Contingency plan: for weight gain of 3lbs in 24hrs or 5lbs overall, take extra 40mg of lasix x2 days HAILEE Drummond Assessment & Plan (08/07/2021 11:57 AM CDT): HPI 08/07/2021 Met with patient on video for routine check in. Pt reports that she is feeling about the same Pt reports that she has been taking Furosemide 80 mg in the am and 40 mg in the pm. Weight is down 5 lbs. Pt reports that her breathing and abdominal bloating have slightly improved but her breathing is about the same. Pt denies chest pain or pressure. Pt will follow up with Oncology 08/17. BP (!) 151/94 Pulse 77 Wt 85.9 kg (189 lb 4.8 oz) BMI 32.49 kg/m Wt Readings from Last 3 Encounters: 08/07/21 85.9 kg (189 lb 4.8 oz) 07/31/21 88.3 kg (194 lb 9.6 oz) 07/24/21 88.5 kg (195 lb 1.6 oz) TTE 06/28/21: LVEF 60-65%, LV DD, no sig valve issues HFpEF Current plan Notes SGLT2-I (2a rec) Consider starting sglt2 inhibitor for CHF MRA (2b rec) Consider starting spironolactone- currently with hyperkalemia ARNI or ARB (2b) olmesartan (BENICAR) 40 mg tablet [[id number]] Diuretic as needed (class 1 rec) furosemide (LASIX) 40 mg tablet [[id number]] Advance Care Planning & code status Full Code Would benefit from palliative care consult Medication compliance: compliance most of the time Dietary compliance: noncompliance some of the time Goals of care discussed: not today Plan: -renal function currently at baseline, will monitor closely -Pt will report new or worsening symptoms promptly. Contingency plan: for weight gain of 3lbs in 24hrs or 5lbs overall, take extra 40mg of lasix x2 days Lily Lake RN Assessment & Plan (07/31/2021 11:02 AM CDT): Images from the original note were not included. HPI 07/31/2021: Patient states that she is about the same . Reports that her breathing is stable at rest however when she ambulates from 1 room to the next or any distance hardly she feels short of breath. States it takes her a couple minutes to recover. She continues to report mild edema in her ankles and feet. She does try to elevate them throughout the day however this does not occur often. She does not wear compression socks. Reports that her abdomen does not feel as hard as it was . States she is urinating well. She continues to sleep in the recliner due to orthopnea. Lab Results Component Value Date/Time NA 133 (L) 07/24/2021 03:38 PM K 4.7 07/24/2021 03:38 PM CL 95 (L) 07/24/2021 03:38 PM CO2 27 07/24/2021 03:38 PM CA 10.1 07/24/2021 03:38 PM BUN 35 (H) 07/24/2021 03:38 PM CREAT 1.34 (H) 07/24/2021 03:38 PM GLUCOSE 67 07/24/2021 03:38 PM ANIONGAP 11 07/12/2021 09:11 AM BCRATIO 26 (H) 07/24/2021 03:38 PM BP 129/75 Pulse 72 Wt 88.3 kg (194 lb 9.6 oz) BMI 33.40 kg/m Wt Readings from Last 3 Encounters: 07/31/21 88.3 kg (194 lb 9.6 oz) 07/24/21 88.5 kg (195 lb 1.6 oz) 07/17/21 87.1 kg (192 lb) TTE 06/28/21: LVEF 60-65%, LV DD, no sig valve issues HFpEF Current plan Notes SGLT2-I (2a rec) Consider starting sglt2 inhibitor for CHF MRA (2b rec) Consider starting spironolactone- currently with hyperkalemia ARNI or ARB (2b) olmesartan (BENICAR) 40 mg tablet [[id number]] Diuretic as needed (class 1 rec) furosemide (LASIX) 40 mg tablet [[id number]] Advance Care Planning & code status Full Code Would benefit from palliative care consult Medication compliance: compliance most of the time Dietary compliance: noncompliance some of the time Goals of care discussed: not today Plan: -trial Lasix 80mg in AM and 40mg in PM x2 days, if feels better on this dose, plan to continue -renal function currently at baseline, will monitor closely Contingency plan: for weight gain of 3lbs in 24hrs or 5lbs overall, take extra 40mg of lasix x2 days HAILEE Drummond Assessment & Plan (07/24/2021 10:49 AM CDT): HPI 07/24/2021: Patient reports having ongoing swelling in the legs and around her abdomen for the past couple of days. She reports breathing is at baseline. She tells me that the doctors told her the water pills probably wouldn't work for her and they only IV. She increased her lasix on 07/13 to 80 mg/d. She reports not noticing any difference since the increase. Her weight has remained fairly stable and not consistent with her symptoms. BP (!) 154/90 Pulse 71 Wt 88.5 kg (195 lb 1.6 oz) BMI 33.49 kg/m Wt Readings from Last 3 Encounters: 07/24/21 88.5 kg (195 lb 1.6 oz) 07/17/21 87.1 kg (192 lb) 07/13/21 88.5 kg (195 lb) TTE 06/28/21: LVEF 60-65%, LV DD, no sig valve issues HFpEF Current plan Notes SGLT2-I (2a rec) Consider starting sglt2 inhibitor for CHF MRA (2b rec) Consider starting spironolactone- currently with hyperkalemia ARNI or ARB (2b) olmesartan (BENICAR) 40 mg tablet [[id number]] Diuretic as needed (class 1 rec) furosemide (LASIX) 40 mg tablet [[id number]] Advance Care Planning & code status Full Code Would benefit from palliative care consult Medication compliance: compliance most of the time Dietary compliance: noncompliance some of the time Goals of care discussed: not today Plan: Continue lasix 80 mg/d for now. Will check BMP and pro BNP today. If BMP without significant findings can increase lasix to 80 mg in the AM and 40 mg in the PM-will await results. Contingency plan: for weight gain of 3lbs in 24hrs or 5lbs overall, take extra 40mg of lasix x2 days NOELLE Hood Assessment & Plan (07/17/2021 2:01 PM CDT): HPI 07/17/2021: Spoke with patient today for weekly check in. She reports that she is feeling well today. She continues to have LAEXIS but this is about baseline today. Pt tells me that she is noticing some fluid gathering in her abdomen. Pt continues to take Furosemide 80 mg daily. She has been doing this since 07/13. Wt 87.1 kg (192 lb) BMI 32.96 kg/m Wt Readings from Last 3 Encounters: 07/17/21 87.1 kg (192 lb) 07/13/21 88.5 kg (195 lb) 07/12/21 89.4 kg (197 lb) TTE 06/28/21: LVEF 60-65%, LV DD, no sig valve issues HFpEF Current plan Notes SGLT2-I (2a rec) Consider starting sglt2 inhibitor for CHF MRA (2b rec) Consider starting spironolactone- currently with hyperkalemia ARNI or ARB (2b) olmesartan (BENICAR) 40 mg tablet [[id number]] Diuretic as needed (class 1 rec) furosemide (LASIX) 40 mg tablet [[id number]] Advance Care Planning & code status Full Code Would benefit from palliative care consult Medication compliance: compliance most of the time Dietary compliance: noncompliance some of the time Goals of care discussed: not today Plan per ZUMBA INSTRUCTOR Dereje: -Will need to discuss with patient if the 80 mg of Lasix is helping with fluid and evaluate her urine output. She will need a BMP this week. Left message for patient to return call so we could discuss further. Contingency plan: for weight gain of 3lbs in 24hrs or 5lbs overall, take extra 40mg of lasix x2 days Liyl Lake RN Assessment & Plan (07/13/2021 3:35 PM CDT): HPI 07/13/2021: Patient states she feels as if fluid is building back up. She reports ALEXIS with minimal activity. She denies shortness of breath at rest. She does report a dry cough which was initially thought to be due to lisinopril and this was changed to olmesartan however cough has persisted. She states that she takes half a Benadryl at times which does help. She reports that she typically props herself up on 2-3 pillows at night but over the past couple days has had to sleep in her recliner due to orthopnea. She does report bilateral lower extremity edema, worse than the left. She has been elevating her legs intermittently throughout the day however does not have compression socks. Of note, patient underwent right and left thoracentesis while in the hospital. CXR on 07/12/21 showed Nonspecific pulmonary opacities which could reflect vascular congestive changes and/or pneumonia with small pleural effusions appearing similar to the previous exam. Wt 88.5 kg (195 lb) BMI 33.47 kg/m Wt Readings from Last 3 Encounters: 07/13/21 88.5 kg (195 lb) 07/12/21 89.4 kg (197 lb) 07/04/21 88.7 kg (195 lb 8 oz) TTE 06/28/21: LVEF 60-65%, LV DD, no sig valve issues HFpEF Current plan Notes SGLT2-I (2a rec) Consider starting sglt2 inhibitor for CHF MRA (2b rec) Consider starting spironolactone- currently with hyperkalemia ARNI or ARB (2b) olmesartan (BENICAR) 40 mg tablet [[id number]] Diuretic as needed (class 1 rec) furosemide (LASIX) 40 mg tablet [[id number]] Advance Care Planning & code status Full Code Would benefit from palliative care consult Medication compliance: compliance most of the time Dietary compliance: noncompliance some of the time Breakfast: doesn't always eat it, bowl of grits, biscuit and gravy Lunch: fried or grilled fish, fries, cucumber salad Dinner: sandwich and salad Goals of care discussed: not today Plan: -take extra 40mg of Lasix today and take 80mg of Lasix in the AM -followed by Dr. bIarra Contingency plan: for weight gain of 3lbs in 24hrs or 5lbs overall, take extra 40mg of lasix x2 days HAILEE Drummond Type 2 diabetes mellitus with hyperglycemia 05/2021 Acute CHF 06/27/2021 Old myocardial infarction 11/28/2016 Dyslipidemia 11/28/2016 ASHD (arteriosclerotic heart disease) 11/23/2015 Palpitations 09/21/2015 Status post coronary artery bypass grafting 08/24 Obesity (BMI 30.0-34.9) 09/04/2015 Benign hypertension 09/02/2015 NSTEMI (non-ST elevated myocardial infarction) 0 09/02/2015 Chest pain in adult 09/02/2015 Mass of lower outer quadrant of right breast Pleural effusion Cancer, metastatic to bone Current Treatment and Therapy Plans OP ONC DENOSUMAB (XGEVA) FOR BONE METASTASIS* Plan Start Date:08/17/2021 Plan Provider:Alonso Treadwell MD Linked Problems Mass of lower outer quadrant of right breastCancer, metastatic to bone (CMS/HCC) Treatment Medications No medications scheduled. Past Treatment and Therapy Plans No past plan information found. Lifetime Dose Tracking * Chemical Lifetime Dose Automatic Entry Manual Entr y Effective Dose 111.37 mSv 111.37 mSv 0 mSv Total DLP 5,938.24 DLP 5,938.24 DLP 0 DLP CTDIvol Max 131.86 mGy 131.86 mGy 0 mGy CTDIvol Min 96.2 mGy 96.2 mGy 0 mGy Air Kerma 753 mGy 0 mGy 753 mGy Dose Area Product (DAP) 117.8 Gy-cm2 0 Gy-cm2 117. 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
--- OUTSIDE RECORDS SUMMARY | 2024-09-19 02:46 | XMS_ITS | Encounter Summary ---
Author Organization [facility] Address [address] [place] [address] Care Team Providers Care Icer Machine Operator Name Role Phone Stewart, Tricia Solorzano APN Primary Care Provider [phone] Encounter Details Date Type Department Care Team (Latest Contact Info) Description 04/02/2007 Outpatient Historical [facility] FY06 Donavon Gonzalez MD [address] [address] Routine Gynecological Examination Social History Tobacco Use Types Packs/Day Years Used Date Smoking Tobacco: Never Assessed Comments Unknown Sex and Gender Information Value Date Recorded Sex Assigned at Not on file 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 [address] [facility] [id number] Patient: LILIA AVILES Accn No: [id number] Collected: 04/02/2007 6:29:00 AM CYTOLOGY APPLICATION SUPPORT DEVELOPER FINAL REPORT - - INSURANCE CLAIMS PROCESSOR PAP History Specimen Source: Endocervical/Cervic al LMP: None Provided Last Pap Date: 03-02 WNL V72.31 Specimen Adequacy No endocervical cells identified. The presence or absence of an endocervical component is indeterminate in this specimen secondary to atrophy causing difficulty in distinguishing parabasilar type cells from squamous metaplastic cells. Diagnosis NEGATIVE FOR INTRAEPITHELIAL LESION OR MALIGNANCY. (Previously noted as Within Normal Limits) Pipelines Manager 04/03/07 Completed by: FRANCY PEREZ (Electronically signed by) 04/03/07 Additional Diagnosis Atrophic Smear Comment Routine follow-up is suggested. Important Info About Pap Smears HPV Testing off the Thin Prep vial can be done as a means of further evaluating a Thin Prep Report. For information about ordering the HPV test, phone Cytology at . Treatment or follow-up recommendations (if any) that are considered within this report are based upon general recommendations as contained in 2001 Consensus Guidelines For Cervical Cytological Abnormalities [place]: June 17, 2001, and are provided as a general guideline rather than as a specific recommendation. Final decisions about the most appropriate treatment and follow-up should be made on an individualized basis by the treating physician in consultation with his/her patient. INTERFACE SYSTEM 04/02/2007 6:29 AM ENVIRONMENTAL GEOLOGIST us Donavon Gonzalez MD PATHOLOGY/CYTOLOGY ORDERABLE S Final Result INTERFACE SYSTEM Refer to clinic/hospital department documented in this encounter Visit Diagnoses Diagnosis Routine gynecological examination documented in this encounter Care Teams Icer Machine Operator Relationship Specialty Start Date End Date Tricia Stewart APN [address] [place] [id number] PCP - General NURSE PRACTITIONER 09/02/15 documented as of this encounter
--- OUTSIDE RECORDS SUMMARY | 2024-09-19 02:47 | XMS_ITS | Encounter Summary ---
Author Organization [facility] Address [address] [place] [address] Care Team Providers Care Manager Process Improvement Name Role Phone Tricia Stewart APN Primary Care Provider Encounter Details Date Type Department Care Team (Latest Contact Info) Description 03/29/1999 Outpatient Historical [facility] 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 [facility] [address] [place] [address] PCP - General NURSE PRACTITIONER 09/02/15 documented as of this encounter
--- OUTSIDE RECORDS SUMMARY | 2024-09-19 02:47 | XMS_ITS | Encounter Summary ---
Author Organization [facility] Address [address] [place] [address] Care Team Providers Care It Programmer Analyst Name Role Phone Tricia Stewart APN Primary Care Provider [phone] Encounter Details Date Type Department Care Team (Latest Contact Info) Description 01/28/2005 Outpatient Historical [facility] OBGYN-[address] [address] Donavon Gonzalez MD [address] [address] Routine medical exam (Primary Dx); ROUTINE RAYON WINDER EXAMINATION Social History Tobacco Use Types Packs/Day Years Used Date Smoking Tobacco: Never Assessed Comments Unknown Sex and Gender Information Value Date Recorded Sex Assigned at Not on file 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 Sex Female 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
--- OUTSIDE RECORDS SUMMARY | 2024-09-19 02:47 | XMS_ITS | Encounter Summary ---
Author Organization [facility] Address [address] [place] [address] Care Team Providers Care Leaflet Or Newspaper Deliverer Name Role Phone Tricia Stewart APN Primary Care Provider [phone] Encounter Details Date Type Department Care Team (Late st Contact Info) Description 01/28/2005 Outpatient Historical [facility] FY06 Donavon Gonzalez MD [address] 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 [address] [place] [address] PCP - General NURSE PRACTITIONER 09/02/15 documented as of this encounter
--- OUTSIDE RECORDS SUMMARY | 2024-09-19 02:47 | XMS_ITS | Encounter Summary ---
Author Organization [facility] Address [address] [place] [address] Care Team Providers Care Bearing Maker Name Role Phone Tricia Stewart APN Primary Care Provider [phone] Encounter Details Date Type Department Care Team (Latest Contact Info) Description 09/07/1998 Outpatient Historical [facility] Donavon Gonzalez MD [address] [address] Vaginitis and vulvovaginitis, unspecified (Primary Dx) Social History Tobacco Use Types Packs/Day Years Used Date Smoking Tobacco: Never Assessed Comments Unknown Sex and Gender Information Value Date Recorded Sex Assigned at Not on file 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 [facility] [address] [place] [address] PCP - General NURSE PRACTITIONER 09/02/15 documented as of this encounter
--- OUTSIDE RECORDS SUMMARY | 2024-09-19 02:47 | XMS_ITS | Encounter Summary ---
Author Organization [facility] Address [address] [place] [address] Care Team Providers Care Circular Sawyer Stone Name Role Phone Tricia Stewart APN Primary Care Provider [phone] Encounter Details Date Type Department Care Team (Latest Contact Info) Description 03/03/2006 Outpatient Historical [facility]-[place] [address] [address] Donavon Gonzalez MD [address] [address] Routine Medical Exam (Primary Dx); Routine Gynecological Examination Social History Tobacco Use Types Packs/Day Years Used Date Smoking Tobacco: Never Assessed Comments Unknown Sex and Gender Information Value Date Recorded Sex Assigned at Not on file 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
--- OUTSIDE RECORDS SUMMARY | 2024-09-19 02:47 | XMS_ITS | Clinical Summary ---
Author Organization [facility] Address [address] [place] [address] Phone Care Team Providers Care Bit Sharpener Operator Name Role Phone Stewart, Tricia Solorzano APN Primary Care Provider Allergies Active Allergy Reactions Criticality Noted Date Comments Alteplase Shortness of Breath/Wheezing High 023 Atorvastatin Muscle Pain Medium 11/25/2015 Medications allopurinoL (ZYLOPRIM) 300 mg tablet Take 300 mg by mouth daily. 12/19/19 18 Active isosorbide mononitrate (IMDUR) 30 mg Extended Release 24 hour tabletIndicati ons:Exertional angina Take 1 Tablet (30 mg) by mouth daily in the morning. 90 Tablet 3 09/08/19 21 Active Cholecalcifero l, Vitamin D3, 50 mcg (2,000 unit) Capsule Take 2 Capsules by mouth daily in the morning. Active traMADoL (ULTRAM) 50 mg tablet Take 50 mg by mouth every 8 hours as needed. Active vitamin B complex Tablet Sustained Release Take 1 Tablet by mouth daily. Active olmesartan (BENICAR) 40 mg tablet Take 40 mg by mouth daily. Active furosemide (LASIX) 40 mg tablet Take 2 Tablets (80 mg) by mouth daily. 180 Tablet 3 07/25/19 22 Active docusate sodium (COLACE) 100 mg capsule Take 1 Capsule (100 mg) by mouth 2 times daily. 09/11/19 16 Active nitroglycerin (NITROSTAT) 0.4 mg Tablet, Sublingual Place 1 Tablet (0.4 mg) under tongue every 5 minutes as needed for Chest Pain. 25 Tablet 11 04/22/19 23 Active oxygen home delivery Home Oxygen Concentrator yes at 3 L/M Rest, 3 L/M Activity, 3 L/M Sleep, Delivery Device: Nasal Cannula Portability: yes, 3 L/M Rest, 3 L/M Activity, May provide device best for patient needs(E system,home fill, conserving device) Length of Need: 99 months 1 Each 04/26/19 23 Active palbociclib (Ibrance) 125 mg tablet Take 1 Tablet (125 mg) by mouth daily for 3 weeks on, 1 week off. Repeat. 21 Tablet 5 06/29/19 23 Active diphenhydrAMIN E (Benadryl Allergy) 25 mg tablet 1 tablet at bedtime as needed Orally Once a day Active ondansetron (ZOFRAN) 4 mg Tablet TAKE 1 TABLET BY MOUTH EVERY 4 HOURS NEEDED FOR NAUSEA for 8 Active enoxaparin (LOVENOX) 120 mg/0.8 mL injectionIndic ations:DVT, lower extremity, recurrent, bilateral (CMS/HCC) Inject 0.7 mL (105 mg) by subcutaneous injection every 24 hours. 90 Each 3 11/26/19 23 Active spironolactone (ALDACTONE) 25 mg tablet Take 1/2 (one-half) tablet by mouth once daily 90 Tablet 1 12/10/19 23 Active letrozole (FEMARA) 2.5 mg tabletIndicati ons: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),Mass of lower outer quadrant of right breast Take 1 Tablet (2.5 mg) by mouth daily. 90 Tablet 3 05/29/19 25 Active metoprolol succinate (TOPROL XL) 100 mg Extended Release 24 hour tablet Take 1 tablet by mouth once daily 90 Tablet 09/11/19 25 Active metoprolol succinate (TOPROL XL) 100 mg Extended Release 24 hour tablet Take 1 tablet by mouth once daily 90 Tablet 06/08/19 25 025 Discontinued Active Problems Problem Noted Date Diagnosed Date S/P TAVR (transcatheter aortic valve replacement ) 02/05/2023 Overview (02/05/2023): 02/04/23: 23 mm Chávez-Mounika Ultra bovine prosthesis Pulmonary hypertension 02/04/2023 Severe [...] e 08/21/2021 Acute respiratory failure with hypoxia HFpEF MCM: Heart Failure Management 07/13/2021 Overview [...] lung about every other day. States her [id number] has been helping her with it. 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 (10/02/2021 10:52 AM CDT): HPI [...] ARB (2b) olmesartan (BENICAR) 40 mg tablet [[id number]] Diuretic as needed (class 1 rec) furosemide (LASIX) 40 mg tablet [[id number]] decreased to 80mg daily on 08/15 due [...] ARB (2b) olmesartan (BENICAR) 40 mg tablet [[id number]] Diuretic as needed (class 1 rec) furosemide (LASIX) 40 mg tablet [[id number]] decreased to 80mg daily on 08/15 due [...] take extra 40mg of lasix x2 days [place] RN Assessment & Plan (09/18/2021 11:57 [...] ARB (2b) olmesartan (BENICAR) 40 mg tablet [[id number]] Diuretic as needed (class 1 rec) furosemide (LASIX) 40 mg tablet [[id number]] decreased to 80mg daily on 08/15 due to renal function Advance Care Planning & code status Full Code Would benefit from palliative care consult- declined Medication compliance: compliance most of the time Dietary compliance: noncompliance some of the time Goals of care discussed: not today Plan per RETAIL ASSOCIATE MANAGER BILINGUAL Sara: -Recommended that patient take an additional [...] pneumothorax. -Lab only cbc/diff today -Refer to Clinical Research Director soon for ? Fibroid vs malignant lesion [...] ARB (2b) olmesartan (BENICAR) 40 mg tablet [[id number]] Diuretic as needed (class 1 rec) furosemide (LASIX) 40 mg tablet [[id number]] decreased to 80mg daily on 08/15 due [...] ARB (2b) olmesartan (BENICAR) 40 mg tablet [[id number]] Diuretic as needed (class 1 rec) furosemide (LASIX) 40 mg tablet [[id number]] Taking 80mg in AM and 40mg in [...] ARB (2b) olmesartan (BENICAR) 40 mg tablet [[id number]] Diuretic as needed (class 1 rec) furosemide (LASIX) 40 mg tablet [[id number]] Advance Care Planning & code status Full [...] ARB (2b) olmesartan (BENICAR) 40 mg tablet [[id number]] Diuretic as needed (class 1 rec) furosemide (LASIX) 40 mg tablet [[id number]] Advance Care Planning & code status Full [...] ARB (2b) olmesartan (BENICAR) 40 mg tablet [[id number]] Diuretic as needed (class 1 rec) furosemide (LASIX) 40 mg tablet [[id number]] Advance Care Planning & code status Full [...] feeling well today. She continues to have ALEXIS but this is about baseline today. Pt [...] ARB (2b) olmesartan (BENICAR) 40 mg tablet [[id number]] Diuretic as needed (class 1 rec) furosemide (LASIX) 40 mg tablet [[id number]] Advance Care Planning & code status Full Code Would benefit from palliative care consult Medication compliance: compliance most of the time Dietary compliance: noncompliance some of the time Goals of care discussed: not today Plan per RETAIL ASSOCIATE MANAGER BILINGUAL Dereje: -Will need to discuss with patient if the 80 mg of Lasix is helping with fluid and evaluate her urine output. She will need a BMP this week. Left message for patient to return call so we could discuss further. 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 Ibarra Contingency plan: for weight gain of 3lbs [...] breast Pleural effusion Cancer, metastatic to bone Resolved Problems Problem Noted Date Diagnosed Date Resolved Date Chronic anticoagulation 10/11/202101/24 Overview (02/04/2023): On daily Lovenox Atherosclerosis of eek co ronary artery with unstable angina pectoris 09/04/2015 12/17/2017 Encounters Date Type Department Care Team Description 09/17/2024 10:25 AM CDT - 09/17/2024 11:59 PM CDT Hospital Encounter [facility] [address] [place] [phone] Alonso Treadwell MD Discharge Disposition: Home or Self Care 09/17/2024 10:00 AM CDT Office Visit [facility] Cancer [facility] Hematology [place] [address] [place] [phone] Alonso Treadwell MD Ledl, Stephanie L, NP 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) (Primary Dx); Cancer, metastatic to bone (CMS/HCC); Chronic anemia; Positive colorectal cancer screening using Cologuard test 09/17/2024 9:00 AM CDT - 09/17/2024 11:59 PM CDT Hospital Encounter [facility] [address] [place] [address] Alonso Treadwell MD Arrived Discharge Disposition: Home or Self Care 09/10/2024 Refill [facility] Cardiology [facility] [address] [place] [address] Cynthia Landers, SLADE 09/08/2024 Orders Only [facility] Cancer and Hematology [place] [address] [place] [address] Alfreda Correa NP 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) (Primary Dx) 09/06/2024 Telephone [facility] Hemat[facility] [place] [address] [place] [address] Alonso Treadwell MD Results 07/23/2024 10:15 AM CDT - 07/23/2024 11:59 PM CDT Hospital Encounter [facility] [address] [facility] [address] [place] [phone] Alonso Treadwell MD Discharge Disposition: Home or Self Care 07/23/2024 9:40 AM CDT Office Visit [facility] Cancer and Hematology [place] [address] [facility] [address] [place] [phone] Alonso Treadwell MD 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) (Primary Dx); Cancer, metastatic to bone (CMS/HCC); Chronic anemia; History of pulmonary embolism; History of DVT (deep vein thrombosis) 07/23/2024 8:40 AM CDT - 07/23/2024 11:59 PM CDT Hospital Encounter [facility] [address] [phone] Alonso Treadwell MD Discharge Disposition: Home or Self Care 07/23/2024 Chart Note [facility] [address] [place] [address] [address] [place] [address] Elissa Hirsch, [facility] Cancer (Social Work Navigation) 07/16/2024 Orders Only [facility] Cancer and Hematology [place] [address] [place] [phone] Alonso Treadwell MD 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) (Primary Dx) 07/01/2024 Chart Note [facility] Cancer and Hematology [place] [address] [place] [address] [address] [place] [address] Alonso Treadwell MD 06/28/2024 Specialty Pharmacy [facility] [address] [place] [phone] Mary Kate Marrero, PHARMACIST 06/28/2024 Specialty Pharmacy [facility] [address] [place] [phone] Mary Kate Marrero, PHARMACIST Specialty Pharmacy Financial Assistance from Last 3 Months Immunizations Immunization Administration Dates Next Due (SPIKEVAX) (12 YRS UP PRIMAR Y SERIES) COVID-19 VACCINE - MRNA-1273(PF) 100 MCG/0.5 ML IM SUSP 06/04/2020 Family History Medical History Relation Name Comments Cancer Father Hypertension Mother Relation Name Status Comments Father Mother Social History Tobacco Use Types Packs/Day Years Used Date Smoking Tobacco: Never Passive Smoke Exposure: Past Smokeless Tobacco: Never Tobacco Cessation:Counseling Given: Not Answered Alcohol Use Standard Drinks/Week Comments No 0 (1 standard drink = 0.6 oz pur e alcohol) Comments No Sex and Gender Information Value Date Recorded Sex Assigned at Female 01/29/2023 10:22 AM GROOMING SALON MANAGER Legal Sex Female 12:00 AM GROOMING SALON MANAGER Gender Identity Female 01/29/2023 10:22 AM GROOMING SALON MANAGER Sexual Orientation Straight 01/29/2023 10 :22 AM GROOMING SALON MANAGER Last Filed Vital Signs Vital Sign Reading Time Taken Comments Blood Pressure 132/72 09/17/2024 9:54 AM CDT Pulse 79 09/17/2024 9:54 AM CDT Temperature 36.6 C (97.8 F) 09/17/2024 9:54 AM CDT Respiratory Rate 18 02/05/2023 3:00 PM GROOMING SALON MANAGER Oxygen Saturation 96% 09/17/2024 9:54 AM CDT Inhaled Oxygen Concentration - - Weight 84.6 kg (186 lb 9.6 oz) 09/17/2024 9:54 A M CDT Height 162.6 cm (5' 4 ) 09/17/2024 9:54 AM CDT Body Mass Index 32.03 09/17/2024 9:54 AM CDT Plan of Treatment Upcoming Encounters Date Type Department Care Team (Late st Contact Info) Description 10/22/2024 10:20 AM CDT Appointment [facility] [address] [facility] [address] [place] [address] Alonso Treadwell MD [address] [place] [address] 10/22/2024 11:20 AM CDT Office Visit [facility] Cancer and Hematology [place] [address] [place] [address] Alonso Treadwell MD [address] [place] [address] 10/22/2024 12:00 PM CDT Appointment [facility] Oncology [facility] [address] [place] [address] Alonso Treadwell MD [address] [place] [address] 11/16/2024 2:40 PM CDT Office Visit [facility] [address] [place] [address] Scotty Galvan, [facility] [address] [place] [address] 11/26/2024 8:20 AM CDT Hospital Encounter [facility] [address] [place] [address] Izabel He, DO [address] [address] 11/26/2024 8:20 AM CDT - 11/26/2024 8:40 AM CDT Surgery [facility] [address] [place] [address] Izabel He, DO [address] [phone] COLONOSCOPY Scheduled Procedures Name Priority Associated Diagnoses Date/Ti me COLONOSCOPY Positive colorectal cancer screening using Cologuard rivera 11/26/2024 8:20 AM CDT Health Maintenance Due Date Last Done Comments DIABETES ANNUAL FOOT EXAM 1968 DIABETES MICROALBUMIN ANNUAL SCREEN 1968 DTAP/TDAP/TD VACCINES (1 - Tdap) 1969 PNEUMOCOCCAL VACCINE 50+ YEA RS (1 of 2 - PCV) 1969 Traditional Medicare (ACO) A nnual Wellness Visit 1969 ZOSTER VACCINE (1 of 2) 1969 BREAST CANCER SCREENING 1990 COLORECTAL SCREENING 09/24/1995 Colorectal Cancer Screening 09/24/1995 FIT-DNA Q 3 years 09/24/1995 FIT/FOBT Q 1 year 09/24/1995 Flex Sig/CT Colonography Q 5 years 09/24/1995 RSV VACCINE (60+ or ) (1 - Risk 60-74 years 1-dose series) 2010 OSTEOPOROSIS SCREENING 09/24/2015 COVID-19 Vaccine (3 - Modern a risk series) 07/30/2020 07/02/2020, 06/04/2020 LDL CHOLESTEROL ANNUAL 05/18/2021 05/18/2020, 2015 DIABETES HBA1C Q 6 MONTHS 06/06/20222021, 06/04/2021, 05/18/2020, Additional history exists DIABETES ANNUAL RETINAL EXAM 10/16/2022 10/16/2021 INFLUENZA VACCINE (#1) 2024 01/06/2024, 2022 Goals Goal Patient Goal Type Associated Problems Recent Progress Patient-Stated? Author Autogenerat ed Goal Care Plan Autogenerated Problem No [facility] Medical Devices Implanted Type Area Psychiatry Resident Device Identifier Shelf Expiration Date Model / Serial / Lot Sealant Coseal 4ml [id number] - [id number] Implanted:Qty: 1 on 09/06/2015 by Alexandro Casper MD Biological N/A: Chest OLIVARES- [employer], IncTHCARE HANNA 06/23/2016 [id number] / [id number] / [id number] Dev Closure Angioseal 6fr Vip [id number] - [id number] Implanted:Qty: 1 on 12/20/2022 at [facility] Closure Device Right: Groin [facility]EDA [employer] 05/25/2023 [id number] / / [id number] Closure Perclose Prostyle Sut Mediate 76889-14 - [id number] Implanted:Qty: 1 on 02/04/2023 at [facility] Closure Device Right: Groin PINEDA- VASC DEVICE 10/24/2024 [id number] / / [id number] Closure Perclose Prostyle Sut Mediate 34520-77 - [id number] Implanted:Qty: 1 on 02/04/2023 at [facility] Closure Device Right: Groin PINEDA- VASC DEVICE 2024 74838-48 / / [id number] Dev Closure Angioseal 6fr Vip [id number] - [id number] Implanted:Qty: 1 on 02/04/2023 at [facility] Closure Device Left: Groin PINEDA [facility] [employer] 07/18/2023 [id number] / / [id number] Picacho Ptfe Thck 1.6mmx2.5x10.2 cm [id number] - [id number] Implanted:Qty: 1 on 09/06/2015 by Alexandro Casper MD Graft N/A: Chest CR BARD- WEN VASC INC 04/23/2020 [id number] / / [id number] Hemostatic Gelfoam Lg Sz [id number] [place] [facility] [place] [id number] Implanted:Qty: 1 on 09/06/2015 by Alexandro Casper MD Hemostatic N/A: Chest PFIZER- PHARM 02/23/2018 [id number] / / [id number] Ring Vein Marking 10mm 35-5832 - [id number] Implanted:Qty: 3 on 09/06/2015 by Alexandro Casper MD Other N/A: Chest TELEFLEX- PILL WECK RAOUL L P 35-5832 / [id number] / [id number] Vlv Sapien3 Aortic Thv 23mm [id number] - [id number] Implanted:Qty: 1 on 02/04/2023 by Jakob Ibarra MD at [facility] Valve N/A: Heart [employer] 10/09/2025 [id number] / [id number] / Explanted Type Area Psychiatry Resident Device Identifier Shelf Expiration Date Model / Serial / Lot Pleural Pleurx Catheter-09/24 Implanted:Qt y: 1 on 10/05/2021 by Santana Yost MD Explanted:Qt y: 1 on 07/16/2022 by Wili Vega PA Catheter Right: Chest [employer] [id number] 06/23/2022 [id number] / / [id number] Procedures Procedure Name Priority Date/Time Associated Diagnosis Comments COMPREHENSIVE METABOLIC PANEL Stat 09/17/2024 9:52 AM CDT 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) CBC WITH DIFFERENTIAL Stat 09/17/2024 9:52 AM CDT 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) LACTATE DEHYDROGENASE Routine 09/17/2024 9:42 AM CDT 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) COMPREHENSIVE METABOLIC PANEL Stat 07/23/2024 9:41 AM CDT 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) CBC WITH DIFFERENTIAL Stat 07/23/2024 9:41 AM CDT 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) LACTATE DEHYDROGENASE Routine 07/23/2024 9:31 AM CDT 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) LIPID PANEL Routine 05/18/2020 HEMOGLOBIN A1C Routine 09/04/2015 2:27 PM CDT from Last 3 Months or Most Recently Relevant to Health Maintenance Results * (ABNORMAL) CBC WITH DIFFERENTIAL (09/17/2024 9:52 AM CDT) Only the most recent of2 resultswithin the time period is included. WBC 3.1(L) 4.8 - 10.8 K/uL 09/17/2024 10:14 AM CDT [facility] [place] RBC 2.83(L) 4.20 - 5.40 M/uL 09/17/2024 10:14 AM [facility] [place] HEMOGLOBIN 9.1(L) 12.0 - 16.0 g/dL 09/17/2024 10:14 AM [facility] [place] HEMATOCRIT 27.4(L) 36.0 - 46.0 % 09/17/2024 10:14 AM [facility] [place] MCV 96.8 82.0 - 100.0 fL 09/17/2024 10:14 AM [facility] [place] MCH 32.2 27.0 - 34.0 pg 09/17/2024 10:14 AM [facility] [place] MCHC 33.2 31.0 - 37.0 g/dL 09/17/2024 10:14 AM [facility] [place] RDW 15.8(H) 11.0 - 14.5 % 09/17/2024 10:14 AM [facility] [place] RDW-STDEV 54.2(H) 37.0 - 54.0 fL 09/17/2024 10:14 AM [facility] [place] PLATELETS 155 140 - 440 K/uL 09/17/2024 10:14 AM [facility] [place] MPV 10.5 8.9 - 12.8 fL 09/17/2024 10:14 AM [facility] [place] NEUTROPHILS 74 42 - 75 % 09/17/2024 10:14 AM [facility] [place] LYMPHOCYTES 15(L) 24 - 44 % 09/17/2024 10:14 AM [facility] [place] MONOCYTES 8 2 - 10 % 09/17/2024 10:14 AM [facility] [place] EOSINOPHILS 2 0 - 7 % 09/17/2024 10:14 AM [facility] [place] BASOPHILS 1 0 - 1 % 09/17/2024 10:14 AM [facility] [place] IMMATURE GRANULOCYTES 1 0 - 2 % 09/17/2024 10:14 AM [facility] [place] NEUTROPHIL ABSOLUTE 2.31 1.40 - 6.50 K/uL 09/17/2024 10:14 AM CDT [facility] [place] LYMPHOCYTE ABSOLUTE 0.46(L) 1.20 - 4.00 K/uL 09/17/2024 10:14 AM CDT [facility] [place] MONOCYTE ABSOLUTE 0.24 0.10 - 0.60 K/uL 09/17/2024 10:14 AM CDT [facility] [place] EOSINOPHIL ABSOLUTE 0.05 0.00 - 0.70 K/uL 09/17/2024 10:14 AM CDT [facility] [place] BASOPHILS ABSOLUTE 0.03 0.00 - 0.20 K/uL 09/17/2024 10:14 AM CDT [facility] [place] IMMATURE GRANULOCYTES ABSOLUTE 0.02 0.00 - 0.10 K/uL 09/17/2024 10:14 AM T [facility] [place] Blood Venipuncture / Unknown 09/17/2024 9:52 AM CDT 09/17/2024 10:09 AM CDT Alfreda Correa RETAIL ASSOCIATE MANAGER BILINGUAL HEMATOLOGY ORDERABLES Final Result [facility] [place] [facility]# [id number] [address] [place] [address] * (ABNORMAL) COMPREHENSIVE METABOLIC PANEL (09/17/2024 9:52 AM CDT) Only the most recent of2 resultswithin the time period is included. SODIUM 134(L) 136 - 145 mmol/L 09/17/2024 10:45 AM CDT [facility] [place] POTASSIUM 4.5 3.5 - 5.1 mmol/L 09/17/2024 10:45 AM CDT [facility] [place] CHLORIDE 100 98 - 107 mmol/L 09/17/2024 10:45 AM CDT [facility] [place] CO2 22 22 - 29 mmol/L 09/17/2024 10:45 AM CDT [facility] [place] CALCIUM 10.3(H) 8.8 - 10.2 mg/dL 09/17/2024 10:45 AM [facility] [place] BUN 27(H) 8 - 23 mg/dL 09/17/2024 10:45 AM [facility] [place] CREATININE 1.43(H) 0.51 - 0.95 mg/dL 09/17/2024 10:45 AM [facility] [place] Comment:The GFR result is no t clinically significant on patients <18 or >70 years of age. GLUCOSE 130(H) 74 - 99 mg/dL 09/17/2024 10:45 AM [facility] [place] TOTAL PROTEIN 7.3 6.4 - 8.3 g/dL 09/17/2024 10:45 AM [facility] [place] ALBUMIN 4.0 3.5 - 5.2 g/dL 09/17/2024 10:45 AM [facility] [place] BILIRUBIN TOTAL 0.4 0.0 - 1.0 mg/dL 09/17/2024 10:45 AM [facility] [place] ALKALINE PHOSPHATASE 61 35 - 104 U/L 09/17/2024 10:45 AM [facility] [place] AST 25 <=33 U/L 09/17/2024 10:45 AM [facility] [place] ALT 13 <=33 U/L 09/17/2024 10:45 AM [facility] [place] GFR 39 mL/min/1.7 3 sq meter 09/17/2024 10:45 AM [facility] [place] Comment:eGFR calculated with 2020 CKD-EPI equation. Vegetarian diet, extremely high or low muscle mass, and may affect results. Cystatin C with Glomerular Filtration Rate is a suitable alternative for these patients. ANION GAP 12 9 - 20 mmol/L 09/17/2024 10:45 AM [facility] [place] Blood Venipuncture / Unknown 09/17/2024 9:52 AM CDT 09/17/2024 10:10 AM CDT Alfreda Correa RETAIL ASSOCIATE MANAGER BILINGUAL CHEMISTRY ORDERABLES Final R esult [facility] CLIA# [id number] [id number] [place] [address] * (ABNORMAL) LACTATE DEHYDROGENASE (09/17/2024 9:42 AM CDT) Only the most recent of2 resultswithin the time period is included. [facility] LD (LACTATE DEHYDROGENASE) 328(H) 120 - 250 U/L [facility] Comment: Results slightly increased due to hemolysis. Test Performed at: [facility] [address] [place] [address] Rox Soni MD Blood 09/17/2024 9:42 AM CDT 09/17/2024 2:38 PM CDT us Alfreda Correa RETAIL ASSOCIATE MANAGER BILINGUAL CHEMISTRY ORDERABLES Final R [facility] Performing Organization Address [facility] Co de Phone Number [facility] [phone] [employer] [address] [place] [address] * LIPID PANEL (05/18/2020) [facility] ABSTRACTED CHOLESTEROL [facility] ABSTRACTED TRIGLYCERIDE [facility] ABSTRACT[facility] HDL 26 [facility] ABSTRACTED LDL CALCULATED ^ [facility] CHOLESTEROL ^ [facility] TRIGLYCERIDE ^ [facility] HDL ^ [facility] LDL CALCULATED ^ [facility] Blood 05/18/2020 Narrative [facility] - 05/19/2020 12:00 AM CDT This order was created through External Result Entry us Abstract Spg Provider CHEMISTRY ORDERABLES Final Result [facility] * (ABNORMAL) HEMOGLOBIN A1C (09/04/2015 2:27 PM CDT) [facility] HEMOGLOBIN A1C 7.3(H) 4.0 - 6.0 % 09/05/2015 10:28 AM CDT [facility] EST. AVG GLUCOSE, A1C 163 mg/dL 09/05/2015 10:28 AM CDT [facility] Blood Venipuncture / Unknown 09/04/2015 2:27 PM CDT 09/04/2015 2:46 PM CDT Narrative [facility] - 09/05/2015 10:28 AM CDT Test performed on IMNEXT instrumentation using HPLC methodology Alexandro Casper MD CHEMISTRY ORDERABLES F inal Result [facility] CLIA# [id number] [address] [place] [address] [facility] CLIA # [id number] [id number] [place] [address] from Last 3 Months or Most Recently Relevant to Health Maintenance Additional Health Concerns Active Problems Noted Date Diagnosed Date Autogenerated Problem 09/10/2024 Insurance MEDICARE PART A AND B [place] [id number] Advance Directives For more information, please contact: [phone] * Full Code (Latest Code Status on File) Date Activated Date Inactivated Comments 02/04/2023 8:04 AM 02/05/2023 9:43 PM * Full Code Date Activated Date Inactivated Comments 12/20/2022 6:46 AM 12/20/2022 7:18 PM * Full Code Date Activated Date Inactivated Comments 04/23/2022 7:25 PM 04/25/2022 5:17 PM * Full Code Date Activated Date Inactivated Comments 08/21/2021 9:44 PM 08/31/2021 8:26 PM * Full Code Date Activated Date Inactivated Comments 06/27/2021 3:50 PM 07/04/2021 5:49 PM Care Teams Bit Sharpener Operator Relationship Specialty Start Date End Date Tricia Stewart APN [facility] [address] [address] PCP - General NURSE PRACTITIONER 09/02/15
--- OUTSIDE RECORDS SUMMARY | 2024-09-19 02:47 | XMS_ITS | Clinical Summary ---
Author Organization [facility] Address [address] [place] [address] Phone Care Team Providers Care Meter Maker Name Role Phone Terry, Tricia Solorzano APN Primary Care Provider [phone] Allergies Active Allergy Reactions Criticality Noted Date Comments Atorvastatin Muscle Pain Low 11/25/2015 Medications aspirin (ECOTRIN EC) 81 mg Tablet, Delayed Release (E.C.) Take 1 Tablet (81 mg) by mouth daily. 0 6 Active docusate sodium (COLACE) 100 mg capsule Take 1 Capsule (100 mg) by mouth 2 times daily. 6 Active Cholecalciferol, Vitamin D3, 2,000 unit Capsule Take 2 Capsules by mouth daily in the morning. Pt taking 1 daily 5,000 unit Active metoprolol succinate (TOPROL XL) 100 mg Extended Release 24 hour tablet Take 1 Tablet (100 mg) by mouth 2 times daily. 60 Tablet 0 6 Active vitamin B complex Tablet Sustained Release Take 1 Tablet by mouth daily. Active OTHER Provider please include Medication name, dose, route and frequency . Active traMADol (ULTRAM) 50 mg tablet Take 50 mg by mouth every 8 hours as needed for Pain. Active hydroCHLOROthiaz gregory 25 mg tablet Take 1 Tablet (25 mg) by mouth daily. 90 Tablet 3 8 Active allopurinol (ZYLOPRIM) 300 mg tablet Take 300 mg by mouth daily. Active lisinopril (PRINIVIL) 10 mg tablet Take 1 Tablet (10 mg) by mouth 2 times daily. 180 Tablet 3 8 Active pllxu-qg-6-dha-e eq-rhiklsu-teu (krill oil) 166-410-10-75 mg Capsule Take by mouth. Activ e isosorbide mononitrate (IMDUR) 30 mg Extended Release 24 hour tabletIndication s:Exertional angina Take 1 Tablet (30 mg) by mouth daily in the morning. 30 Tablet 2 Active metFORMIN (GLUCOPHAGE XR) 500 mg Extended Release 24 hour tablet Take 500 mg by mouth 2 times daily with meals. Active Active Problems Problem Noted Date Diagnosed Date Old myocardial infarction 11/28/2016 Dyslipidemia 11/28/2016 ASHD (arteriosclerotic heart disease) 11/23/2015 Palpitations 09/21/2015 Status post coronary artery bypass grafting 08/24 Obesity (BMI 30.0-34.9) 09/04/2015 Chest pain in adult 09/02/2015 Benign hypertension 09/02/2015 NSTEMI (non-ST elevated myocardial infarction) 0 09/02/2015 Resolved Problems Problem Noted Date Diagnosed Date Resolved Date Atherosclerosis of [place] co ronary artery with unstable angina pectoris 09/04/2015 12/17/2017 Immunizations Immunization Administration Dates Next Due (SPIKEVAX) (12 YRS UP PRIMAR Y SERIES) COVID-19 VACCINE - MRNA-1273(PF) 100 MCG/0.5 ML IM SUSP 06/04/2020 Family History Medical History Relation Name Comments Cancer Father Hypertension Mother Relation Name Status Comments Father Mother Social History Tobacco Use Types Packs/Day Years Used Date Smoking Tobacco: Never Smokeless Tobacco: Never Tobacco Cessation:Counseling Given: No Alcohol Use Standard Drinks/Week Comments No 0 (1 standard drink = 0.6 oz pur e alcohol) Comments No Sex and Gender Information Value Date Recorded Sex Assigned at Not on file 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 Gender Identity Not on file Sexual Orientation Not on file Last Filed Vital Signs Vital Sign Reading Time Taken Comments Blood Pressure 144/78 06/27/2020 3:48 PM CDT Pulse 64 06/27/2020 3:48 PM CDT Temperature 36.2 C (97.2 F) 09/22/2015 10:50 AM CDT Respiratory Rate 18 09/22/2015 10:5 0 AM CDT Oxygen Saturation 97% 05/30/2020 1:58 PM CDT Inhaled Oxygen Concentration - - Weight 95.6 kg (210 lb 12.8 oz) 06/27/2020 3:48 PM CDT Height 162.6 cm (5' 4 ) 06/27/2020 3:48 PM CDT Body Mass Index 36.18 06/27/2020 3:48 PM CDT Plan of Treatment Health Maintenance Due Date Last Done Comments DTAP/TDAP/TD VACCINES (1 - Tdap) 1969 BREAST CANCER SCREENING 1990 COLORECTAL SCREENING 09/24/1995 Colorectal Cancer Screening 09/24/1995 FIT-DNA Q 3 years 09/24/1995 FIT/FOBT Q 1 year 09/24/1995 Flex Sig/CT Colonography Q 5 years 09/24/1995 PNEUMOCOCCAL VACCINE 50+ YEARS (1 of 1 - PCV) 09/24/19 ZOSTER VACCINE (1 of 2) 2000 RSV VACCINE (60+ or ) (1 - Risk 60-74 years 1-dose series) 2010 OSTEOPOROSIS SCREENING 09/24/2015 COVID-19 Vaccine (2 - season) 10/26/202312/2020 INFLUENZA VACCINE (#1) 2024 Medical Devices Implanted Type Area Retail Sales Manager Device Identifier Shelf Expiration Date Model / Serial / Lot Sealant Coseal 4ml [id number] - [id number] Implanted:Qty: 1 on 09/06/2015 by Alexandro Casper MD at [facility] Biological N/A: Chest OLIVARES- [facility]NA 06/23/2016 [id number] / [id number] / [id number] [place] Ptfe Thck 1.6mmx2.5x10.2 cm [id number] - [id number] Implanted:Qty: 1 on 09/06/2015 by Alexandro Casper MD at [facility] Graft N/A: Chest CR BARD- [employer]ASC [employer] 04/23/2020 [id number] / / [id number] Hemostatic Gelfoam Lg Sz [id number] - [facility] [place] - [id number] Implanted:Qty: 1 on 09/06/2015 by Alexandro Casper MD at [facility] Hemostatic N/A: Chest PFIZER- PHARM 02/23/2018 [id number] / / [id number] Ring Vein Marking 10mm [id number] - [id number] Implanted:Qty: 3 on 09/06/2015 by Alexandro Casper MD at [facility] Other N/A: Chest TELEFLEX- PILL WECK RAOUL L P [id number] / [id number] / [id number] Insurance MEDICARE PART A AND B Get [employer] [place] [id number] Advance Directives For more information, please contact: [phone] * Full Code (Latest Code Status on File) Date Activated Date Inactivated Comments 09/06/2015 4:31 PM 09/11/2015 1:33 PM * Full Code Date Activated Date Inactivated Comments 09/02/2015 3:48 AM 09/06/2015 4:31 PM Care Teams Meter Maker Relationship Specialty Start Date End Date Tricia Stewart APN [facility] [address] [address] PCP - General NURSE PRACTITIONER 09/02/15
--- OUTSIDE RECORDS SUMMARY | 2024-09-19 02:47 | XMS_ITS | Encounter Summary ---
Author Organization [facility] Address [address] [place] [address] Care Team Providers Care Driver/Sales Workers Name Role Phone Tricia Stewart APN Primary Care Provider [phone] Encounter Details Date Type Department Care Team (Late st Contact Info) Description 01/03/2004 Outpatient Historical [facility] FY06 Margie Dawson, WIRE DRAWING SETTER [address] 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
--- OUTSIDE RECORDS SUMMARY | 2024-09-19 02:47 | XMS_ITS | Encounter Summary ---
Author Organization [facility] Address [address] [place] [address] Care Team Providers Care Wellness Rn Name Role Phone Tricia Stewart APN Primary Care Provider [phone] Encounter Details Date Type Department Care Team (Latest Contact Info) Description 01/03/2004 Outpatient Historical [facility] OBGYN-[address] [address] Donavon Gonzalez MD [address] [address] Routine medical exam (Primary Dx); ROUTINE CERAMIC ENGINEER EXAMINATION Social History Tobacco Use Types Packs/Day Years Used Date Smoking Tobacco: Never Assessed Comments Unknown Sex and Gender Information Value Date Recorded Sex Assigned at Not on file 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
--- OUTSIDE RECORDS SUMMARY | 2024-09-19 02:47 | XMS_ITS | Encounter Summary ---
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
--- OUTSIDE RECORDS SUMMARY | 2024-09-19 02:47 | XMS_ITS | Patient Health Record ---
Author Organization [facility] Address [address] [place] [address] Care Team Providers Care Cafeteria Director Name Role Phone Stewart, [facility] Primary Care Provider STEWART, [facility] Unavailable Unavailable María Melo Unavailable [phone] Allergies Allergen (clinical drug ingredient) Drug/Non Drug Allergy documented on EMR Reaction Allergy Type Onset Date Status Substance with 5-qgbrmfm-2-methylgluta ryl-coenzyme A reductase inhibitor mechanism of action (substance) Statins Unknown Drug Allergy Active Results Component Value Reference Range Notes Tabatha Reviewed date:06/25/2024 02:10:57 PM Interpretation: Performing Lab: Notes/Report: Reason For Referral No Information Medications Medication SIG (Take, Route, Frequency, Duration) Notes Start Date End Date Status Lovenox 80 MG/0.8ML Solution Prefilled Syringe as directed Injection Once a day Active Lasix 40 MG Tablet 2 tabs in am Orally Once a day; Duration: 30 day(s) Not-Taking Benadryl Allergy 25 MG Tablet 1 tablet at bedtime as needed Orally Once a day Not-Taking OneTouch Ultra - Strip USE 1 STRIP TO CH BRODY GLUCOSE ONCE DAILY NEEDED; Duration: 90 Active Vitamin D3 Active metFORMIN HCl ER 500 MG Tablet Extended Release 24 Hour TAKE 1 TABLET BY MOUTH TWICE DAILY AFTER A MEAL Oral; Duration: 30 Not-Taking Letrozole 2.5 MG Tablet 1 tablet Orally Once a day Active Albuterol Sulfate HFA 108 (90 Base) MCG/ACT Aerosol Solution 2 puffs Inhalation four times a day prn; Duration: 30 days Not-Taking Ibrance 125 MG Capsule 1 capsule with fo od Orally Once a day Active Cephalexin 500 MG Capsule 2 caps Orally twice a day; Duration: 05/08/2023 Not-Taking Spironolactone 25 MG Tablet TAKE 1/2 (ONE-HALF) TABLET BY MOUTH ONCE DAILY Oral; Duration: 60 Days Not-Taking Cortisporin-TC 3.3-3-10-0.5 MG/ML Suspension 4 drops into affected ear Otic four times a day; Duration: 7 days 12/18/2023 Active Clopidogrel Bisulfate 75 MG Tablet TAKE 1 TABLET BY MOUTH ONCE DAILY Oral; Duration: 30 Days Not-Taking Olmesartan Medoxomil 20 MG Tablet Take 1 tablet by mouth once daily; Duration: 30 Active Metoprolol Tartrate 25 MG Tablet 1 tablet with food Orally three times a day Not-Taking traMADol HCl 50 mg Tablet TAKE 1 TO 2 TA BLETS BY MOUTH EVERY 4 HOURS NEEDED FOR SEVERE pain; Duration: 30 07/24/2024 Active Allopurinol 300 MG Tablet TAKE 1 TABLET BY MOUTH ONCE DAILY AFTER A MEAL; Duration: 90 Active Nitroglycerin 0.4 MG Tablet Sublingual DISSOLVE ONE TABLET UNDER THE TONGUE EVERY 5 MINUTES NEEDED FOR CHEST PAIN. DO NOT EXCEED A TOTAL OF 3 DOSES IN 15 MINUTES Sublingual; Duration: 15 Days Active Isosorbide Mononitrate ER 30 MG Tablet Extended Release 24 Hour TAKE 1 TABLET BY MOUTH ONCE DAILY IN THE MORNING; Duration: 90 Active Ondansetron HCl 4 MG Tablet TAKE 1 TABLET BY MOUTH EVERY 4 HOURS NEEDED FOR NAUSEA; Duration: 8 Not-Taking Metoprolol Succinate ER 100 MG Tablet Extended Release 24 Hour TAKE 1 TABLET BY MOUTH ONCE DAILY Oral; Duration: 90 Days Active Immunizations Vaccine Route Administration Date Status Comme nts Flucelvax Quadrivalent IM Intramuscular 12/10/2022 Administered [facility] [id number] pt tolerated well/instructed to wait 20 min Flucelvax Trivalent, Syringe 0.5 mL, PF IM Intramuscular 01/06/2024 Administered supplied by [employer]/pt tolerated well/instructed to wait 20 min Social History Tobacco Use: Social History Observation Description Date Details (start date - stop date) Never Smoker NA - NA Social History Depression Screening Social Info Question Answer Notes depression screening findings Findings Negative (0 -4) PHQ-9 Little interest or p [place] in doing things Not at all Feeling down, depressed, or hopeless Not at all Trouble falling or staying asleep, or sleeping t oo much Several days Feeling tired or having little energy More than half the days Poor appetite or overeating Not at all Feeling bad about yourself, or that you are a failure, or have let yourself or your family down Not at all Trouble concentrating on thi ngs, such as reading the newspaper or watching television Not at all Moving or speaking so slowly that other people could have noticed. Or the opposite ? being so fidgety or restless that you have been moving around a lot more than usual Not at all Thoughts that you would be b adriano off , or of hurting yourself in some way Not at all Total Score 3 Interpretation Minimal Depression Drugs/Alcohol: Social Info Question Answer Notes Alcohol Screen (Audit-C) Did you have a drink containing alcohol in the past year? No Points 0 Interpretation Negative Drugs Have you used drugs other than those for medical reasons in the past 12 months? No Comprehensive Health Assessm ent Social Info Question Answer Notes Developmental screening usin g a standardized tool. Completed? Yes Social Functioning Do you suffer from s ocial anxiety? No How comfortable are you whil e interact with other people in everyday social tasks? Comfortable *Social Determinants of Health Has lack of transportation kept you from medical appointments, meetings, work or from getting things needed for daily living? No Recently, have you worried t hat your food would run out before you got money to buy more? No Do you feel physically and e motionally safe where you currently live? Yes Are you worried about losing your housing? No Availability of resources to meet daily needs? Y es What is your current housing situation? I have h ousing How many members of your [place] n family live with you? (Including yourself) 0 How many jobs do you work? 1 How many hours do you work on weekly basis? Less than 20 hours How often do you see or talk to people that you care about and feel close to? More than 5 times How stressed are you? Medium Family/ social/ cultural characteristics Are you curre ntly employed? Yes Social Support System Living alone Tobacco Use: Social Info Question Answer Notes xTobacco Use/Smoking Are you a nonsmoker Additional Details Category Social Info Options Details Drugs/Alcohol: Do you smoke marijuana? De nies Do you drink alcohol? No Section Notes: 04/30/2022 PHQ-9 Depression screen 12/12/2023 score 3 04/30/2022 PHQ-9 04/30/2022 PHQ-9 Depression screen 12/12/2023 score 3 Depression screen 12/12/2023 score 3 Depression screen 12/12/2023 score 3 04/30/2022 PHQ-9 Depression screen 12/12/2023 score 3 Depression screen 12/12/2023 score 3 04/30/2022 PHQ-9 04/30/2022 PHQ-9 Depression screen 12/12/2023 score 3 Depression screen 12/12/2023 score 3 Depression screen 12/12/2023 score 3 04/30/2022 PHQ-9 04/30/2022 PHQ-9 04/30/2022 PHQ-9 04/30/2022 PHQ-9 04/30/2022 PHQ-9 04/30/2022 PHQ-9 04/30/2022 PHQ-9 04/30/2022 PHQ-9 04/30/2022 PHQ-9 04/30/2022 PHQ-9 04/30/2022 PHQ-9 Depression screen 12/12/2023 score 3 Depression screen 12/12/2023 score 3 Depression screen 12/12/2023 score 3 Depression screen 12/12/2023 score 3 Depression screen 12/12/2023 score 3 Depression screen 12/12/2023 score 3 Problems Problem Type SNOMED Code ICD Code Onset Dates Problem Status W/U Status Risk Notes Problem Secondary malignant neoplasm of breast (385586204465872) 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) Active confirmed Problem Anemia due to antineoplastic chemotherapy (D64.81) Active confirmed Problem 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) (0383090648091) Type 2 diabetes mellitus with other skin complications (E11.628) Active confirmed Problem Mixed hyperlipidemia (401575107) Mixed hyperlipidemia (E78.2) Active confirmed Problem Chronic pain (71639197) Other chronic pain (G89.29) Active confirmed Problem Essential hypertension (80751084) Essential (primary) hypertension (I10) Active confirmed Problem Nausea (655078741) Nausea (R11.0) Active confir med Problem Biologic cardiac valve prosthesis in situ (391558091) 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) Active confirmed Problem Multiple subsegmental pulmonary emboli without acute cor pulmonale (I26.94) Active confirmed Problem Type II diabetes mellitus without complication (100335806) Controlled type 2 diabetes mellitus without complication, without long-term current use of insulin (E11.9) Active confirmed Problem Angina co-occurrent and due to arteriosclerosis of coronary artery bypass graft (disorder) (64502961544312951) 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) Active confirmed Problem Anxiety (14406172) Anxiety (F41.9) Active confi rmed Problem Type II diabetes mellitus without complication (823056627) Type 2 diabetes mellitus without complication, without long-term current use of insulin (E11.9) Active confirmed Problem Atherosclerotic heart disease of sh[place] coronary artery without angina pectoris (812247356575520) Coronary artery disease involving shosh[place]bann[place] coronary artery of shoshone[place]bannock heart without angina pectoris (I25.10) Active confirmed Problem Hypersomnia (47924694) Hypersomnia (G47.10) Active confirmed Problem Cellulitis (030450513) Cellulitis (L03.90) Active confirmed Problem Otitis externa (9126997) Otitis externa (H60.90) Active confirmed Problem Exacerbation of moderate persistent asthma (disorder) (669739040) Moderate persistent asthmatic bronchitis with acute exacerbation (J45.41) Active confirmed Problem Gout (32000593) Gout (M10.9) Active confirmed Problem Heart failure (50215624) Other congestive heart failure (I50.9) Active confirmed Problem Bone pain (26849716) Bone pain (M89.8X9) Active confirmed Problem Gout (62109716) Acute gout of multiple sites, unspecified cause (M10.9) Active confirmed Problem Polyneuropathy due to type 2 diabetes mellitus (771910689) Controlled type 2 diabetes mellitus with diabetic polyneuropathy, without long-term current use of insulin (E11.42) Active confirmed Problem Thyroid disorder screening (060752713) Thyroid disorder screening (Z13.29) Active confirmed Problem Wheezing (38938519) Wheezes (R06.2) Active conf irmed Problem Blister (974504) Blister (T14.8XXA) Active confirmed Problem Asthma without status asthmaticus (94948024) Uncomplicated asthma, unspecified asthma severity, unspecified whether persistent (J45.909) Active confirmed Problem Environmental allergy (015795364) Environmental allergies (Z91.09) Active confirmed Problem Malignant neoplasm of female breast (035255799) Malignant neoplasm of right female breast, unspecified estrogen receptor status, unspecified site of breast (C50.911) Active confirmed Problem Heart failure (24260826) Acute congestive heart failure, unspecified heart failure type (I50.9) Active confirmed Problem Malignant neoplasm of central part of female breast (838679126) Malignant neoplasm of central portion of right female breast, unspecified estrogen receptor status (C50.111) Active confirmed Problem Secondary malignant neoplasm of lung (60441478) Malignant neoplasm metastatic to right lung (C78.01) Active confirmed Problem Primary hypertension (02471502) Primary hypertension (I10) Active confirmed Problem Acute cough (922350699294930608 ) Acute cough (R05.1) Active confirmed Problem Primary osteoarthritis (022495623) Primary osteoarthritis involving multiple joints (M15.9) Active confirmed Vital Signs Heart Rate 95 /min 05/27/2024 Temperature 97.5 degrees Fahrenheit 05/27/2024 Respiratory Rate 22 /min 05/27/2024 Blood pressure diastolic 65 mm Hg 05/27/2024 Oximetry 94 % 05/27/2024 Height-cm 163.83 cm 05/27/2024 Weight-kg 86.18 kg 05/27/2024 Height 64.5 in 05/27/2024 Blood pressure systolic 127 mm Hg 05/27/2024 Weight 190 lbs 05/27/2024 BMI 32.11 kg/m2 05/27/2024 Encounters Encounter Location Date Provider Diagnosis [facility] [place] 07/15/2024 [facility] Essential (prima ry) hypertension I10 and Other chronic pain G89.29 [facility] [address] [address] 12/18/2023 [facility] Cerumen impaction H61.20 and Otitis externa H60.90 [facility] [address] [address] 01/06/2024 [facility] Encounter for immunization Z23 ; Cellulitis L03.90 ; Encounter for administration of vaccine Z23 ; Gout M10.9 and Foot pain, left M79.672 [facility] [address] [address] 01/01/2024 [facility] Cellulitis L03.90 [facility] [address] [place] [address] 2023 María Melo Acute bronchitis J20.9 [facility] [address] [place] [address] 05/27/2024 [facility] Acute cough R05.1 an d Bronchitis J40 [facility] [address] [place] [address] 12/12/2023 [facility] Encounter for Medicare annual wellness exam Z00.00 ; Colon cancer screening Z12.11 ; Malignant neoplasm of right female breast, unspecified estrogen receptor status, unspecified site of breast C50.911 ; Coronary artery disease of bypass graft of shoshone[place]bannock heart with stable angina pectoris I25.708 and Cerumen debris on tympanic membrane of left ear H61.22 [facility] [address] [place] [address] 01/27/2024 [facility] Hypersomnia G47.10 [facility] [address] [place] [address] 11/10/2023 [facility] [place] 10/29/2023 [facility] Essential (prima ry) hypertension I10 and Type 2 diabetes mellitus without complication, without long-term current use of insulin E11.9 [facility] [place] 09/25/2023 [facility] Essential (prima ry) hypertension I10 and Mixed hyperlipidemia E78.2 [facility] [address] [place] [address] 09/01/2024 [facility] [place] 08/17/2024 [facility] Primary hyperten cathleen I10 ; Other chronic pain G89.29 and Controlled type 2 diabetes mellitus with diabetic polyneuropathy, without long-term current use of insulin E11.42 [facility] [place] 07/15/2024 [facility] Essential (prima ry) hypertension I10 and Type 2 diabetes mellitus without complication, without long-term current use of insulin E11.9 [facility] [address] [place] [address] 06/25/2024 [facility] [place] 05/25/2024 [facility] Primary hyperten cathleen I10 and Other chronic pain G89.29 [facility] [place] 04/27/2024 [facility] Essential (prima ry) hypertension I10 ; Other chronic pain G89.29 and Primary osteoarthritis involving multiple joints M15.9 [facility] [place] 04/16/2024 [facility] Essential (prima ry) hypertension I10 ; Controlled type 2 diabetes mellitus without complication, without long-term current use of insulin E11.9 and Other chronic pain G89.29 [facility] [place] 03/08/2024 [facility] Primary hyperten cathleen I10 and Other chronic pain G89.29 [facility] [place] 01/27/2024 [facility] Primary hyperten cathleen I10 and Controlled type 2 diabetes mellitus with diabetic polyneuropathy, without long-term current use of insulin E11.42 [facility] [place] 01/02/2024 [facility] [address] [place] [address] 12/30/2023 [facility] [place] 12/29/2023 [facility] Essential (prima ry) hypertension I10 and Controlled type 2 diabetes mellitus with diabetic polyneuropathy, without long-term current use of insulin E11.42 [facility] [place] 11/26/2023 [facility] Essential (prima ry) hypertension I10 and Type 2 diabetes mellitus without complication, without long-term current use of insulin E11.9 Assessments Encounter Date Diagnosis (ICD Code) Assessment Notes Treatment Notes Treatment Clinical Notes Section Notes 2023 Acute bronchitis (ICD-10 - J20.9) Increase fluids, take medication as directed. RTC if no improvement with treatment. 11/26/2023 Essential (primary) hypertension (ICD-10 - I10) 12/18/2023 Otitis externa (ICD-10 - H60.90) cortisporin otic 12/18/2023 Cerumen impaction (ICD-10 - H61.20) ear flush; large cerumen return 01/27/2024 Primary hypertension (ICD-10 - I10) 03/08/2024 Primary hypertension (ICD-10 - I10) 04/16/2024 Essential (primary) hypertension (ICD-10 - I10) 05/25/2024 Primary hypertension (ICD-10 - I10) 07/15/2024 Essential (primary) hypertension (ICD-10 - I10) 08/17/2024 Primary hypertension (ICD-10 - I10) 07/15/2024 Essential (primary) hypertension (ICD-10 - I10) 05/27/2024 Bronchitis (ICD-10 - J40) z eileen depomedrol/dec adron im 05/27/2024 Acute cough (ICD-10 - R05.1) 01/27/2024 Hypersomnia (ICD-10 - G47.10) sleep study 01/06/2024 Encounter for immunization (ICD-10 - Z23) flu vaccine Immunization supplied by [employer]. 01/06/2024 Cellulitis (ICD-10 - L03.90) rocephin 1 gram im keflex 04/27/2024 Essential (primary) hypertension (ICD-10 - I10) 01/01/2024 Cellulitis (ICD-10 - L03.90) keflex 12/29/2023 Essential (primary) hypertension (ICD-10 - I10) 10/29/2023 Essential (primary) hypertension (ICD-10 - I10) 09/25/2023 Essential (primary) hypertension (ICD-10 - I10) 12/12/2023 Encounter for Medicare annual wellness exam (ICD-10 - Z00.00) see eval Diagnosis reconciliation performed and verified as listed in Assessments. 12/12/2023 Colon cancer screening (ICD-10 - Z12.11) cologuard Diagnosis reconciliation performed and verified as listed in Assessments. 12/12/2023 Malignant neoplasm of right female breast, unspecified estrogen receptor status, unspecified site of breast (ICD-10 - C50.911) oncology as planned Diagnosis reconciliation performed and verified as listed in Assessments. 10/29/2023 Type 2 diabetes mellitus without complication, without long-term current use of insulin (ICD-10 - E11.9) Type 2 Diabetes: Care Instructions material was published 09/25/2023 Mixed hyperlipidemia (ICD-10 - E78.2) 12/29/2023 Controlled type 2 diabetes mellitus with diabetic polyneuropathy, without long-term current use of insulin (ICD-10 - E11.42) 01/06/2024 Encounter for administration of vaccine (ICD-10 - Z23) 04/27/2024 Other chronic pain (ICD-10 - G89.29) 07/15/2024 Type 2 diabetes mellitus without complication, without long-term current use of insulin (ICD-10 - E11.9) 08/17/2024 Other chronic pain (ICD-10 - G89.29) 07/15/2024 Other chronic pain (ICD-10 - G89.29) 04/16/2024 Controlled type 2 diabetes mellitus without complication, without long-term current use of insulin (ICD-10 - E11.9) 05/25/2024 Other chronic pain (ICD-10 - G89.29) 03/08/2024 Other chronic pain (ICD-10 - G89.29) 01/27/2024 Controlled type 2 diabetes mellitus with diabetic polyneuropathy, without long-term current use of insulin (ICD-10 - E11.42) 11/26/2023 Type 2 diabetes mellitus without complication, without long-term current use of insulin (ICD-10 - E11.9) 04/16/2024 Other chronic pain (ICD-10 - G89.29) Chronic Pain: Care Instructions material was published 08/17/2024 Controlled type 2 diabetes mellitus with diabetic polyneuropathy, without long-term current use of insulin (ICD-10 - E11.42) Diabetic Neuropathy: Care Instructions material was published 01/06/2024 Gout (ICD-10 - M10.9) depomedrol/dec adron 04/27/2024 Primary osteoarthritis involving multiple joints (ICD-10 - M15.9) Arthritis: Care Instructions material was published 12/12/2023 Coronary artery disease of bypass graft of shoshone-bannock heart with stable angina pectoris (ICD-10 - I25.708) Diagnosis reconciliation performed and verified as listed in Assessments. 01/06/2024 Foot pain, left (ICD-10 - M79.672) 12/12/2023 Cerumen debris on tympanic membrane of left ear (ICD-10 - H61.22) debrox Diagnosis reconciliation performed and verified as listed in Assessments. 12/12/2023 Other Questions asked and answered; discharged to home. Diagnosis reconciliation performed and verified as listed in Assessments. 12/18/2023 Other Questions asked and answered; discharged to home. 01/01/2024 Other Questions asked and answered; discharged to home. 01/06/2024 Other Questions asked and answered; discharged to home. Give Flu vaccine as directed per provider 01/27/2024 Other Questions asked and answered; discharged to home. 05/27/2024 Other Questions asked and answered; discharged to home. Plan Of Treatment Pending Test Test Name Order Date Sleep study > 3 [id number] 01/27/2024 Sleep Study with [id number] 01/27/2024 Insurance Providers Payer Name Payer Address Payer Phone Subscriber Number Group Number Insured Name Patient Relationship to Insured Coverage Start Date Coverage End Date [place] [address] [place] [phone] [id number] Lilia Aviles Self - patient is the insured [place] [employer] [address] [address] [place] [phone] [id number] Lilia Aviles Self - patient is the insured Medications Administered Medication Instructions Date of Administration Dosage Notes DEPO-Medrol 11/23/2021 [place] [address] 2-1 pt tolerated well/instructed to wait 20 min DEPO-Medrol 12/27/2021 40 mg NDC: [address]-96 Patient tolerated well, advised to wait 20 min at clinic DEPO-Medrol 09/18/2023 40 mg [id number] 3-01 Patient tolerated well. DEPO-Medrol 01/06/2024 40 mg ndc 44078-309 3-01 pt tolerated well/instructed to wait 20 min DEPO-Medrol 05/27/2024 40 mg ndc 15044-225 3-01 pt tolerated well/instructed to wait 20 min dexAMETHasone 11/23/2021 4 mg ndc 74489-6 39-30 pt tolerated well/instructed to wait 20 min dexAMETHasone 12/27/2021 4 mg NDC: 31814-524-21 Patient tolerated well, advised to wait 20 min at clinic dexAMETHasone 09/18/2023 4 mg nd-72858-5 423-00 Patient tolerated well. dexAMETHasone 01/06/2024 [place] [address]-7 423-00 pt tolerated well/instructed to wait 20 min dexAMETHasone 05/27/2024 4 mg ndc 23106-3 423-00 pt tolerated well/instructed to wait 20 min Rocephin 11/23/2021 1 g ndc 8538-9992- 11 pt tolerated well/instructed to wait 20 min Rocephin 12/27/2021 250 mg ND: 0790-1288-25 Patient tolerated well, advised to wait 20 min at clinic Rocephin 04/08/2023 [place] [address] -11 pt tolerated well/instructed to wait 20 min Rocephin 09/18/2023 1 g [id number] -11Patient tolerated well. Rocephin 01/06/2024 [place] [address] -11 pt tolerated well/instructed to wait 20 min Medical (General) History Medical History History ICD Code hypertension diabetes mellitus measles mumps Chicken Pox hyperlipidemia bypass x4 breast cancer with mets Surgical History Surgery Date(Month/Year) quad bypass bilateral tubal ligation (BTL) tonsillectomy Hospitalization History Reason Date(Month/Year) childbirth x2 see surgical history
--- OUTSIDE RECORDS SUMMARY | 2024-09-19 02:47 | XMS_ITS | Encounter Summary ---
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
--- OUTSIDE RECORDS SUMMARY | 2024-09-19 02:47 | XMS_ITS | Encounter Summary ---
[facility] Organization [facility] Address [address] [place] [address] Care Team Providers Care Vice President Of Software Engineering Name Role Phone Tricia Stewart APN Primary Care Provider [phone] Encounter Details Date Type Department Care Team (Latest Contact Info) Description 02/08/2002 Outpatient Historical [facility] [address] [place] [address] Donavon Gonzalez MD [address] [facility] [address] [place] [address] DISORDERS OF UTERUS NEC (Primary Dx) Social History Tobacco Use Types Packs/Day Years Used Date Smoking Tobacco: Never Assessed Comments Unknown Sex and Gender Information Value Date Recorded Sex Assigned at Not on file 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
--- OUTSIDE RECORDS SUMMARY | 2024-09-19 02:47 | XMS_ITS | Encounter Summary ---
Author Organization [facility] Address [address] [place] [address] Care Team Providers Care Abrasive Grinder Name Role Phone Tricia Stewart APN Primary Care Provider [phone] Encounter Details Date Type Department Care Team (Late st Contact Info) Description 03/03/2006 Outpatient Historical [facility] FY06 Donavon Gonzalez MD [address] [facility] [address] [place] [address] Social History Tobacco Use Types Packs/Day Years Used Date Smoking Tobacco: Never Assessed Comments Unknown Sex and Gender Information Value Date Recorded Sex Assigned at Not on file Legal Sex Female 6:36 AM SWIMMER Gender Identity Not on file Sexual Orientation Not on file documented as of this encounter Plan of Treatment Not on file documented as of this encounter Visit Diagnoses Not on filedocumented in this encounter Care Teams Abrasive Grinder Relationship Specialty Start Date End Date Tricia Stewart APN [facility] [address] [place] [address] PCP - General NURSE PRACTITIONER 09/02/15 documented as of this encounter
--- NOTE | 2024-09-19 02:48 | ECG_ITS ---
[facility] Test Date: 2024-09-19 Pat Name: Lilia Aviles Department: Room: Gender: Female Area Coordinator: TABATHA : 1950 Requested By: Domenico Fine Order Number: [id number] Livan MD: David Vaughan M.D. Measurements Intervals Howe Rate: 95 P: 52 ME: 167 QRS: -23 QRSD: 94 T: 52 QT: 359 QTc: 453 Interpretive Statements SINUS RHYTHM POSSIBLE LEFT ATRIAL ENLARGEMENT [-0.1mV P-WAVE IN V1/V2] BORDERLINE LEFT AXIS DEVIATION [QRS AXIS < -20] LEFT VENTRICULAR HYPERTROPHY AND ST-T CHANGE [VOLTAGE CRITERIA PLUS ST/T ABNORMALITY] Compared to ECG 01/23/2024 13:47:25 No significant changes Electronically Signed On 09-19-2024 15:46:29 CDT by Clement [email or web address]
[2024-09-19 02:49] VITALS: BP 182/82; PULSE 98; RESP 18; TEMP 36.6; O2SAT 98
--- NOTE | 2024-09-19 03:05 | CTR_ITS ---
PROCEDURE INFORMATION: Exam: CT Head Without Contrast Exam date and time: 09/19/2024 3:21 AM Age: 73 years old Clinical indication: Prior surgery; Surgery date: 6+ months; Surgery type: Left orbital fixation; EMS arrival for seizure activity. History of posterior circulation CVA. TECHNIQUE: Imaging protocol: Computed tomography of the head without contrast. Sagittal and coronal reformatted images were also reviewed. Radiation optimization: All CT scans at this facility use at least one of these dose optimization techniques: automated exposure control; mA and/or kV adjustment per patient size (includes targeted exams where dose is matched to clinical indication); or iterative reconstruction. COMPARISON: CT head wo con* [id number] 01/23/2024 7:29 AM RADIATION DOSE METRICS: Total DLP (mGy-cm): 1021.1 FINDINGS: Brain: No acute intracranial hemorrhage. No acute infarct. No intra-axial or extra-axial masses. Byrne-white matter differentiation is preserved. No cerebral edema. No extra-axial fluid collections. No midline shift. No evidence for Chiari 1 malformation. Stable mild atrophy of the brain parenchyma. Stable moderately decreased attenuation in the deep white matter, consistent with moderate chronic microangiopathic change. Stable large area of encephalomalacia with foci of amorphous calcification in the right occipital lobe consistent with an old infarct. Cerebral ventricles: No hydrocephalus. Paranasal sinuses: Stable complete opacification of the right sphenoid sinus. Other visualized paranasal sinuses are clear. Mastoid air cells: Visualized mastoid air cells are clear. Orbital cavities: Globes and lenses, extraocular muscles, and optic nerves are intact bilaterally. No acute intraorbital abnormality. Bones: Stable old fracture of the left zygomatic arch. Stable changes consistent with previous repair of a lateral left occipital wall fracture. No acute fracture. Soft tissues: No acute abnormality of the extracranial soft tissues. Vasculature: Atherosclerotic changes in the visualized arteries. CT/CT head wo con* [id number] IMPRESSION: 1. No acute abnormality of the brain. 2. Stable mild atrophy of the brain parenchyma. 3. Stable moderate chronic white matter microangiopathic change. 4. Stable complete opacification of the right sphenoid sinus. 5. Incidental/nonacute findings are listed in the report.
--- NOTE | 2024-09-19 03:05 | XRR_ITS ---
PROCEDURE INFORMATION: Exam: XR Chest Exam date and time: 09/19/2024 3:07 AM Age: 73 years old Clinical indication: Prior surgery; Surgery date: 6+ months; Surgery type: Cabg. Tavr; EMS arrival for seizure TECHNIQUE: Imaging protocol: Radiologic exam of the chest. Views: 1 view. COMPARISON: CT angio chest PE protcl [id number] 01/23/2024 8:26 AM FINDINGS: Lungs: Stable scarring in the right middle lobe and right lower lobe. Pleural spaces: Stable chronic small right pleural effusion versus pleural thickening. No pneumothorax. Heart/Mediastinum: Stable moderate enlargement of the cardiac silhouette. Mediastinal contours are unremarkable. Vasculature: Stable vascular calcifications in the aorta. Stable tortuosity of the aorta. Bones/joints: Poststernotomy changes in the chest. Bones are diffusely osteopenic. Degenerative changes in the spine and shoulders. Osseous findings are stable. XR/XR chest 1V portable [id number] IMPRESSION: 1. No acute cardiopulmonary process. 2. Stable chronic small right pleural effusion versus pleural thickening. 3. Incidental/nonacute findings are listed in the report.
[2024-09-19 03:32] LABS: Glucose Urine UA 1+ (Normal); Nitrate Urine Positive (Negative); Specific Gravity, Urine 1.014 (1.005-1.030)
[2024-09-19 03:39] LABS: Add Urine Microscopic? YES; PCP Screen Urine Negative (Negative)
[2024-09-19 03:44] LABS: Hematocrit 27.1 % (36-47); Hemoglobin 9.10 g/dL (11.27-16.99); Mean Corpuscular HGB Conc 33.6 g/dL (30-55); Mean Corpuscular Hemoglobin 31.8 pg (27-33); Mean Corpuscular Volume 94.8 fl (85-98); Nucleated Red Blood Cells % 0 %; Platelet Count 142 10^3/cmm (157-399); Red Blood Count 2.86 10^6/uL (3.85-5.65); White Blood Count 3.39 10^3/uL (3.29-11.43)
[2024-09-19 03:48] VITALS: BP 172/93; PULSE 84; RESP 16; O2SAT 96
[2024-09-19 03:59] LABS: Lactic Sepsis W/Reflex 2.0 mmol/L (0.5-2.2)
[2024-09-19 04:00] LABS: Alanine Aminotransferase 13 U/L (0-33); Albumin Level 4.2 g/dL (3.5-5.2); Alkaline Phosphatase 64 U/L (35-105); Anion Gap 18.2 (5-19); Aspartate Amino Transferase 20 U/L (0-32); Blood Urea Nitrogen 28 mg/dL (8-23); Calcium 9.7 mg/dL (8.5-10.5); Carbon Dioxide 23 mmol/L (22-29); Chloride 93 mmol/L (98-107); Creatinine Clr Calc Pharmacy 38.7360; Globulin 3.2 g/dL (1.3-4.6); Glucose 188 mg/dL (65-115); Magnesium 1.7 mg/dL (1.7-2.3); Osmolality Calculated 280 mOsm/kg (285-295); Potassium 4.2 mmol/L (3.5-5.1); Sodium 130 mmol/L (136-145); Total Protein 7.4 g/dL (6.6-8.7)
[2024-09-19 04:01] LABS: Alcohol Level < 10 mg/dL (0-10)
[2024-09-19 04:28] LABS: ABG PCO2 41.4 mmHg (35-45); ABG PH Result 7.41 (7.35-7.45); Arterial Blood Gas Hematocrit 29.2 % (37-47); Blood Gas Allen Test Pos; Blood Gas LPM 3.0 %; Blood Gas Operator Identificat gerca; Blood Gas Sample Site Radial, right; Blood Gas Sample Type Arterial; HCO3 ABG 26.3 mmol/L (22-26); PO2 ABG 94.1 mmHg (80.0-100.0); PO2 FiO2 Ratio Arterial Blood 294
--- NOTE | 2024-09-19 05:03 | W.ED.SEIZURE ---
HPI - Seizure General: Chief Complaint: Seizure Stated Complaint: POSSIBLE SEIZURE Time Seen by Provider: 09/19/24 03:43 History of Present Illness: HPI Narrative: 73-year-old male female patient with a history of oxygen dependency. Earlier this morning, the patient's daughter heard a snorting sound and found her mother convulsing in bed. The patient wears oxygen at all times. She found the oxygen condenser to be off. She turned the oxygen condenser on. Convulsions lasted 1 minute or so. There was a period of decreased responsiveness, although the patient had a pulse and was breathing, was not answering questions and would not open her eyes for up to 10 to 15 minutes. She began to arouse after EMS arrived, and placing her in the ambulance. She denies recent illness. She denies fever. She denies other mental status. Changes. She is essentially back to baseline now on my interview. She had 1 other very similar episode back in December of last year where she was found to be off of her oxygen as well. Related Data Home Medications ?Medication ?Instructions ?Recorded ?Confirmed allopurinol 300 mg tablet 300 mg PO DAILY 01/23/24 01/23/24 isosorbide mononitrate 30 mg 30 mg PO QAM 01/23/24 01/23/24 tablet,extended release 24 hr letrozole 2.5 mg tablet 2.5 mg PO DAILY 01/23/24 01/23/24 metoprolol succinate 100 mg 100 mg PO QAM 01/23/24 01/23/24 tablet,extended release 24 hr olmesartan 20 mg tablet 20 mg PO DAILY 01/23/24 01/23/24 palbociclib 125 mg tablet (Ibrance) 125 mg PO DAILY 01/23/24 01/23/24 tramadol 50 mg tablet 50 - 100 mg PO Q4H PRN Pain 01/23/24 01/23/24 Previous Rx's ?Medication ?Instructions ?Recorded aspirin 81 mg tablet,delayed 81 mg PO DAILY #30 tabs 01/24/24 release Allergies Allergy/AdvReac Type Severity Reaction Status Date / Time Mnejevg-LQB-EaF Reductase Allergy Mild ADR-Muscle Verified 06/11/21 15:16 Inhibitor Pain [facility] PFS: Medical History (Updated 09/19/24 @ 05:11 by Domenico Le DO) Metastatic disease History of pleural effusion On home oxygen therapy Chronic anticoagulation Daily Lovenox Pulmonary embolism Impaired glucose tolerance Coronary artery disease Hypertension Stage IV breast cancer in female Per patient report, oncology care in [place] Surgical History Hx of CABG Status post transcatheter aortic valve replacement (TAVR) using bioprosthesis Family History Other Cancer Social History Smoking and tobacco/nicotine status: former use of tobacco/nicotine Alcohol intake: never Substance/Drug Use: never Caregiver/support person: Yes Lives independently: Yes Household members: family Housing: House Physical Exam Const: COMMON NORMALS: no acute distress GENERAL APPEARANCE: cooperative; not frail appearing HENMT: COMMON NORMALS: normocephalic, atraumatic and Normal external nose present HEAD & SCALP: normocephalic and atraumatic FACE & SINUS: normal facial exam and face symmetric NOSE: Normal external nose present Eye: COMMON NORMALS: Equal, round and reactive pupils present and EOMs intact bilaterally PUPIL: Yes Equal, round and reactive pupils present Neck/C-Spine: GENERAL: Yes trachea midline Chest: CHEST: Yes Symmetrical chest wall rise Resp: COMMON NORMALS: normal respiratory effort, No retractions, No use of accessory muscles and clear to auscultation bilaterally AUSCULTATION: clear to auscultation bilaterally Cardio: COMMON NORMALS: regular rate and regular rhythm RATE: regular rate RHYTHM: regular rhythm GI: COMMON NORMALS: Normal to inspection, nondistended, normoactive bowel sounds present Extremity: COMMON NORMALS: no pedal edema Neuro: KEILA COMA SCALE: document GCS findings Flynn coma scale eye opening: Spontaneous Flynn coma scale verbal response: Orientated Flynn coma scale motor response: Obey commands Keila coma scale total score: 15 SENSORY EXAM: Yes extremities (intact) Psych: COMMON NORMALS: speech normal SPEECH: Yes normal speech Skin: COMMON NORMALS: no rashes or lesions noted GENERAL SKIN EXAM: no rashes or lesions noted Course Vital Signs: Vital signs: Vital Signs Temperature 97.8 F 09/19/24 02:49 Pulse Rate 78 09/19/24 05:25 Respiratory Rate 16 09/19/24 05:25 Blood Pressure 178/75 09/19/24 05:34 Pulse Oximetry 98 09/19/24 05:25 MDM - Seizure MDM Narrative Medical decision making narrative: This patient is essentially back to baseline mental status samaniego. She was hypertensive on arrival, but this is improved. Other vitals are stable. Hemoglobin is 9. Platelet count is 142. Creatinine is 1.3 and is stable from prior. Sodium is 130. This is not felt low enough to promote seizure activity. Blood sugar is 188. The patient has a negative urinalysis. CT shows no acute abnormality. There are chronic findings. Chest x-ray is negative for acute change. With return to the baseline, no specific cause other than likely transient hypoxia related to the patient's oxygen being off oxygen, she will be discharged home. To return for repeated episodes of seizure, or worsening symptoms. Lab Data 09/19/24 03:38 09/19/24 03:38 Labs: Radiology Impressions Chest X-Ray 09/19/24 03:05 IMPRESSION: 1. No acute cardiopulmonary process. 2. Stable chronic small right pleural effusion versus pleural thickening. 3. Incidental/nonacute findings are listed in the report. Head CT 09/19/24 03:05 IMPRESSION: 1. No acute abnormality of the brain. 2. Stable mild atrophy of the brain parenchyma. 3. Stable moderate chronic white matter microangiopathic change. 4. Stable complete opacification of the right sphenoid sinus. 5. Incidental/nonacute findings are listed in the report. Laboratory Results WBC 3.39 10^3/uL (3.29-11.43) 09/19/24 03:38 RBC 2.86 10^6/uL (3.85-5.65) L 09/19/24 03:38 Hgb 9.10 g/dL (11.27-16.99) L 09/19/24 03:38 Hct 27.1 % (36-47) L 09/19/24 03:38 MCV 94.8 fl (85-98) 09/19/24 03:38 MCH 31.8 pg (27-33) 09/19/24 03:38 MCHC 33.6 g/dL (30-55) 09/19/24 03:38 RDW 15.9 % (12.1-15.1) H 09/19/24 03:38 Plt Count 142 10^3/cmm (157-399) L 09/19/24 03:38 MPV 10.7 fL (7.4-10.4) H 09/19/24 03:38 Neut % (Auto) 82.6 % 09/19/24 03:38 Lymph % (Auto) 10.9 % 09/19/24 03:38 [place] % (Auto) 5.0 % 09/19/24 03:38 Eos % (Auto) 0.6 % 09/19/24 03:38 Baso % (Auto) 0.6 % 09/19/24 03:38 Neut # (Auto) 2.80 10^3/uL (1.8-7.7) 09/19/24 03:38 Lymph # (Auto) 0.4 10^3/uL (0.8-4.8) L 09/19/24 03:38 [place] # (Auto) 0.2 10^3/uL (0.2-0.9) 09/19/24 03:38 Eos # (Auto) 0.0 10^3/uL (0.0-0.8) 09/19/24 03:38 Baso # (Auto) 0.0 10^3/uL (0.0-0.1) 09/19/24 03:38 Nucleated RBC % (auto) 0 % 09/19/24 03:38 Nucleated RBCs # 0.0 /100WBC 09/19/24 03:38 Specimen Type Arterial 09/19/24 04:16 Sample Site Radial, right 09/19/24 04:16 ABG pH 7.41 (7.35-7.45) 09/19/24 04:16 ABG pCO2 41.4 mmHg (35-45) 09/19/24 04:16 ABG pO2 94.1 mmHg (80.0-100.0) 09/19/24 04:16 ABG PO2/FiO2 Ratio 294 09/19/24 04:16 ABG HCO3 26.3 mmol/L (22-26) H 09/19/24 04:16 ABG Base Excess 1.5 mmol/L (-2.0-2.0) 09/19/24 04:16 Fernando Test Pos 09/19/24 04:16 Hematocrit 29.2 % (37-47) L 09/19/24 04:16 O2 Delivery Device Nc 09/19/24 04:16 O2 Liters/Min 3.0 % 09/19/24 04:16 FiO2 32.0 % 09/19/24 04:16 Forming Operator ID [email or web address] 09/19/24 04:16 Sodium 130 mmol/L (136-145) L 09/19/24 03:38 Potassium 4.2 mmol/L (3.5-5.1) 09/19/24 03:38 Chloride 93 mmol/L (98-107) L 09/19/24 03:38 Carbon Dioxide 23 mmol/L (22-29) 09/19/24 03:38 Anion Gap 18.2 (5-19) 09/19/24 03:38 BUN 28 mg/dL (8-23) H 09/19/24 03:38 Creatinine 1.3 mg/dL (0.5-0.9) H 09/19/24 03:38 GFR Calculation Not Reportable 09/19/24 03:38 Glucose 188 mg/dL (65-115) H 09/19/24 03:38 Calculated Osmolality 280 mOsm/kg (285-295) L 09/19/24 03:38 Lactic Acid 2.0 mmol/L (0.5-2.2) 09/19/24 03:38 Calcium 9.7 mg/dL (8.5-10.5) 09/19/24 03:38 Phosphorus 2.8 mg/dL (2.5-4.5) 09/19/24 03:38 Magnesium 1.7 mg/dL (1.7-2.3) 09/19/24 03:38 Total Bilirubin 0.4 mg/dL (0.15-1.2) 09/19/24 03:38 AST 20 U/L (0-32) 09/19/24 03:38 ALT 13 U/L (0-33) 09/19/24 03:38 Alkaline Phosphatase 64 U/L (35-105) 09/19/24 03:38 Creatine Kinase 104 U/L (26-192) 09/19/24 03:38 C-Reactive Protein 9.0 mg/L (0.0-4.9) H 09/19/24 03:38 Total Protein 7.4 g/dL (6.6-8.7) 09/19/24 03:38 Albumin 4.2 g/dL (3.5-5.2) 09/19/24 03:38 Globulin 3.2 g/dL (1.3-4.6) 09/19/24 03:38 Urine Color Yellow (Yellow) 09/19/24 03:15 Urine Appearance Clear (CLEAR) 09/19/24 03:15 Urine pH 6.0 (5-7) 09/19/24 03:15 Ur Specific [place] 1.014 (1.005-1.030) 09/19/24 03:15 Urine Protein 1+ (Negative) A 09/19/24 03:15 Urine Glucose (UA) 1+ (Normal) H 09/19/24 03:15 Urine Ketones Negative (Negative) 09/19/24 03:15 Urine Blood Trace (Negative) A 09/19/24 03:15 Urine Nitrate Positive (Negative) A 09/19/24 03:15 Urine Bilirubin Negative (Negative) 09/19/24 03:15 Urine Urobilinogen 0.2 mg/dL (Negative) 09/19/24 03:15 Ur Leukocyte Esterase Negative (Negative) 09/19/24 03:15 Urine RBC 0-2 /hpf (0-2) 09/19/24 03:15 Urine WBC 0-5 /hpf (0-5) 09/19/24 03:15 Ur Squamous Epith Cells 0-5 /hpf (0-5) 09/19/24 03:15 Amorphous Sediment Not Reportable 09/19/24 03:15 Urine Bacteria 4+ /hpf (NONE) H 09/19/24 03:15 Hyaline Casts 0-4 /lpf H 09/19/24 03:15 Urine Opiates Screen Negative ng/mL (Negative) 09/19/24 03:15 Ur Barbiturates Screen Negative ng/mL (Negative) 09/19/24 03:15 Ur Phencyclidine Scrn Negative ng/mL (Negative) 09/19/24 03:15 Ur Amphetamines Screen Negative ng/mL (Negative) 09/19/24 03:15 U Benzodiazepines Scrn Negative ng/mL (Negative) 09/19/24 03:15 Urine Cocaine Screen Negative ng/mL (Negative) 09/19/24 03:15 U Marijuana (THC) Screen Negative ng/mL (Negative) 09/19/24 03:15 Ethyl Alcohol < 10 mg/dL (0-10) 09/19/24 03:38 All radiology interpretation(s) finalized by discharge Discharge Plan Discharge Patient Disposition: Home Clinical Impression: Generalized seizure, Hypoxic respiratory failure Condition: Stable Prescriptions: No Action isosorbide mononitrate 30 mg tablet extended release 24 hr 30 mg PO QAM metoprolol succinate 100 mg tablet extended release 24 hr 100 mg PO QAM tramadol 50 mg tablet 50 - 100 mg PO Q4H PRN (Reason: Pain) allopurinol 300 mg tablet 300 mg PO DAILY letrozole 2.5 mg tablet 2.5 mg PO DAILY olmesartan 20 mg tablet 20 mg PO DAILY Ibrance 125 mg Tablet 125 mg PO DAILY Rx Instructions: administer on days 1 through 21 of a 28-day treatment cycle aspirin 81 mg Tablet,Delayed Release (Dr/Ec) 81 mg PO DAILY Qty: 30 0RF Discharge Orders: Discharge ED (Routine); Ordered 09/19/24 Ordered By: Domenico Le Referrals: Stewart,Tricia, WASTE PICKER [Primary Care Provider, Nurse Practitioner] Patient Instructions: Recurrent Seizures in Adults (ED), Opioid Safety, Pain Management, Patient Portal & Pura Instructions Activity Restrictions/Additional Instructions: No specific cause of the period of convulsions was found on testing this morning. Cause is likely lack of oxygen transiently while the condenser was off. Has you have returned to baseline essentially, you will be allowed discharge home. Return for any repeated episodes of seizure or convulsions, or any other problems. Print Language: Italian Coding Level of Care Code ED Crushing Mill Operator for Paulie Paige
[2024-09-19 05:25] VITALS: BP 185/85; PULSE 78; RESP 16; O2SAT 98
[2024-09-19 05:34] VITALS: BP 178/75
== END 2024-09-19 05:44 | disposition home or self-care (01) ==
PROVIDERS: Emergency Provider Emergency Medicine; PCP Nurse Practitioner Family
DX: G40.89 Other seizures (principal); J96.91 Respiratory failure, unspecified with hypoxia; Z79.82 Long term (current) use of aspirin; Z87.891 Personal history of nicotine dependence; I25.10 Atherosclerotic heart disease of native coronary artery without angina pectoris; I10 Essential (primary) hypertension; Z85.3 Personal history of malignant neoplasm of breast
CPT/HCPCS: 36415; 36600; 70450; 71045; 80053; 80306; 80307; 81001; 82550; 82803; 83605; 83735; 84100; 85025; 86140; 87077; 87086; 87186; 93005; 99285; J9999

== ENCOUNTER 2024-10-25 07:07 | Emergency (ER) | payer MEDICARE, OTHER, SELFPAY ==
--- NOTE | 2024-10-25 07:11 | CTR_ITS ---
PROCEDURE INFORMATION: Exam: CT Head Without Contrast Exam date and time: 10/25/2024 07:38 AM Age: 74 years old Clinical indication: Dizziness; Additional info: Seizure, dizziness, weakness TECHNIQUE: Imaging protocol: Computed tomography of the head without contrast. Radiation optimization: All CT scans at this facility use at least one of these dose optimization techniques: automated exposure control; mA and/or kV adjustment per patient size (includes targeted exams where dose is matched to clinical indication); or iterative reconstruction. COMPARISON: CT head wo con* [id number] 19/09/2024 03:21 RADIATION DOSE METRICS: Total DLP (mGy-cm): 1058.5 FINDINGS: Brain: No acute intracranial hemorrhage or abnormal extra-axial fluid collections. No shift of midline. Stable diffuse cerebral atrophy. Large area of encephalomalacia with amorphous calcification involving the right occipital lobe, consistent with prior infarct and similar to the most recent CT. Cerebral ventricles: Normal in size and configuration. Paranasal sinuses: There is increased density complete opacification of the right sphenoid sinus. Partial opacification of midline frontal sinuses. Mastoid air cells: Bilateral tympanomastoid cavities are well aerated. Bones: Unremarkable. No acute fracture. Soft tissues: Unremarkable. CT/CT head wo con* [id number] IMPRESSION: 1. No acute intracranial hemorrhage or abnormal extra-axial fluid collections. 2. Large area of encephalomalacia with amorphous calcification involving the right occipital lobe, consistent with prior infarct and similar to the most recent CT. 3. Persistent complete opacification of the right sphenoid sinus and partial opacification of the frontal sinuses.
--- NOTE | 2024-10-25 07:11 | W.ED.SEIZURE ---
HPI - Seizure General: Chief Complaint: Seizure Stated Complaint: seizure Time Seen by Provider: 10/25/24 07:10 Source: patient and EMS Mode of arrival: EMS Limitations: no limitations History of Present Illness: HPI Narrative: 74-year-old female states she has had a history of sleep apnea induced seizure in the past states her daughter found her this morning shaking likely had a seizure EMS states she is originally postictal now she is back to her baseline. Patient states she feels at her baseline has no complaints at this time. States she has this happened a few times before does not wear CPAP at night but states she has been told that she needs a sleep study she is on 3 L oxygen at baseline Associated symptoms: Deny chest pain, chills or fever(s) Related Data Home Medications ?Medication ?Instructions ?Recorded ?Confirmed allopurinol 300 mg tablet 300 mg PO QPM 01/23/24 10/25/24 isosorbide mononitrate 30 mg 30 mg PO QAM 01/23/24 10/25/24 tablet,extended release 24 hr letrozole 2.5 mg tablet 2.5 mg PO DAILY 01/23/24 10/25/24 metoprolol succinate 100 mg 100 mg PO QAM 01/23/24 10/25/24 tablet,extended release 24 hr olmesartan 20 mg tablet 20 mg PO DAILY 01/23/24 10/25/24 palbociclib 125 mg tablet (Ibrance) 125 mg PO DAILY 01/23/24 10/25/24 tramadol 50 mg tablet 50 - 100 mg PO Q4H PRN Pain 01/23/24 10/25/24 calcium carbonate (Calcium 600) 600 mg PO BEDTIME 10/25/24 10/25/24 cyanocobalamin (vitamin B-12) 1,000 mcg PO DAILY 10/25/24 10/25/24 1,000 mcg tablet (Vitamin B-12) docusate sodium 100 mg capsule 100 mg PO BID 10/25/24 10/25/24 (Colace) hahfdazr-whh-utze-FA-Ca carb-vit K 1 tab PO DAILY 10/25/24 10/25/24 18 mg iron-400 mcg-500 mg tablet sour donaldson extract 1,000 mg 1,000 mg PO DAILY 10/25/24 10/25/24 capsule (Tart Donaldson Extract) Allergies Allergy/AdvReac Type Severity Reaction Status Date / Time Myebvio-FQE-FuM Reductase Allergy Mild ADR-Muscle Verified 06/11/21 15:16 Inhibitor Pain Review of Systems Const: Denies: fever(s), chills, body aches or change in appetite ENMT: Denies: throat pain or dental pain Card: Denies: chest pain Resp: Denies: dyspnea GI: Denies: abdominal pain, nausea, vomiting or diarrhea Musc: Denies: neck pain or back pain Skin/Breast: Denies: rash Neuro: Reports: seizure-like activity; Denies: headache(s) PFS ED PFSH: Medical History Metastatic disease History of pleural effusion On home oxygen therapy Chronic anticoagulation Daily Lovenox Pulmonary embolism Impaired glucose tolerance Coronary artery disease Hypertension Stage IV breast cancer in female Per patient report, oncology care in [place] Surgical History Hx of CABG Status post transcatheter aortic valve replacement (TAVR) using bioprosthesis Family History Other Cancer Social History Smoking and tobacco/nicotine status: former use of tobacco/nicotine Alcohol intake: never Substance/Drug Use: never Caregiver/support person: Yes Lives independently: Yes Household members: family Housing: House Physical Exam Const: COMMON NORMALS: no acute distress, patient oriented x3 and healthy appearing HENMT: COMMON NORMALS: normocephalic and atraumatic HEAD & SCALP: normocephalic and atraumatic Eye: COMMON NORMALS: Equal, round and reactive pupils present and EOMs intact bilaterally PUPIL: Yes Equal, round and reactive pupils present Neck/C-Spine: COMMON NORMALS: full ROM and supple Chest: COMMONS NORMALS: normal inspection of the chest and normal palpation of entire chest wall Resp: COMMON NORMALS: normal respiratory effort, No retractions, No use of accessory muscles and clear to auscultation bilaterally AUSCULTATION: clear to auscultation bilaterally Cardio: COMMON NORMALS: regular rate, regular rhythm and No murmurs present (Cardio) RATE: regular rate RHYTHM: regular rhythm GI: COMMON NORMALS: Normal to inspection, nondistended, normoactive bowel sounds present, Soft to palpation, non-tender and no masses PALPATION: Yes Soft to palpation Extremity: COMMON NORMALS: normal to inspection and full ROM Neuro: COMMON NORMALS: patient oriented x3, moves all extremities and no focal motor deficits Psych: COMMON NORMALS: mental status grossly normal, Normal thought process present and cooperative THOUGHT PROCESS: Normal thought process present Skin: COMMON NORMALS: no rashes or lesions noted and no wounds GENERAL SKIN EXAM: no rashes or lesions noted Course Vital Signs: Vital signs: Vital Signs Temperature 98.3 F 10/25/24 07:23 Pulse Rate 76 10/25/24 08:02 Respiratory Rate 18 10/25/24 07:23 Blood Pressure 168/91 10/25/24 08:02 Pulse Oximetry 96 10/25/24 08:02 Oxygen Delivery Me thod Nasal Cannula 10/25/24 08:02 Oxygen Flow Rate 4 10/25/24 08:02 MDM - Seizure MDM Narrative Medical decision making narrative: Patient presents here with seizure like her previous seizure she is well-appearing here back to baseline head CT blood work here is all normal she is stable for discharge follow-up PCP return if worsening. Lab Data 10/25/24 07:56 10/25/24 07:56 Labs: Radiology Impressions Head CT 10/25/24 07:11 IMPRESSION: 1. No acute intracranial hemorrhage or abnormal extra-axial fluid collections. 2. Large area of encephalomalacia with amorphous calcification involving the right occipital lobe, consistent with prior infarct and similar to the most recent CT. 3. Persistent complete opacification of the right sphenoid sinus and partial opacification of the frontal sinuses. Laboratory Results WBC 3.29 10^3/uL (3.29-11.43) 10/25/24 07:56 RBC 2.84 10^6/uL (3.85-5.65) L 10/25/24 07:56 Hgb 9.20 g/dL (11.27-16.99) L 10/25/24 07:56 Hct 27.3 % (36-47) L 10/25/24 07:56 MCV 96.1 fl (85-98) 10/25/24 07:56 MCH 32.4 pg (27-33) 10/25/24 07:56 MCHC 33.7 g/dL (30-55) 10/25/24 07:56 RDW 16.8 % (12.1-15.1) H 10/25/24 07:56 Plt Count 146 10^3/cmm (157-399) L 10/25/24 07:56 MPV 11.2 fL (7.4-10.4) H 10/25/24 07:56 Neut % (Auto) 80.3 % 10/25/24 07:56 Lymph % (Auto) 10.6 % 10/25/24 07:56 [place] % (Auto) 7.6 % 10/25/24 07:56 Eos % (Auto) 0.3 % 10/25/24 07:56 Baso % (Auto) 0.6 % 10/25/24 07:56 Neut # (Auto) 2.64 10^3/uL (1.8-7.7) 10/25/24 07:56 Lymph # (Auto) 0.4 10^3/uL (0.8-4.8) L 10/25/24 07:56 [place] # (Auto) 0.3 10^3/uL (0.2-0.9) 10/25/24 07:56 Eos # (Auto) 0.0 10^3/uL (0.0-0.8) 10/25/24 07:56 Baso # (Auto) 0.0 10^3/uL (0.0-0.1) 10/25/24 07:56 Nucleated RBC % (auto) 0 % 10/25/24 07:56 Nucleated RBCs # 0.0 /100WBC 10/25/24 07:56 Sodium 131 mmol/L (136-145) L 10/25/24 07:56 Potassium 4.3 mmol/L (3.5-5.1) 10/25/24 07:56 Chloride 95 mmol/L (98-107) L 10/25/24 07:56 Carbon Dioxide 21 mmol/L (22-29) L 10/25/24 07:56 Anion Gap 19.3 (5-19) H 10/25/24 07:56 BUN 24 mg/dL (8-23) H 10/25/24 07:56 Creatinine 1.1 mg/dL (0.5-0.9) H 10/25/24 07:56 GFR Calculation Not Reportable 10/25/24 07:56 Glucose 218 mg/dL (65-115) H 10/25/24 07:56 Calculated Osmolality 283 mOsm/kg (285-295) L 10/25/24 07:56 Calcium 9.7 mg/dL (8.5-10.5) 10/25/24 07:56 Total Bilirubin 0.4 mg/dL (0.15-1.2) 10/25/24 07:56 AST 23 U/L (0-32) 10/25/24 07:56 ALT 16 U/L (0-33) 10/25/24 07:56 Alkaline Phosphatase 59 U/L (35-105) 10/25/24 07:56 Total Protein 7.0 g/dL (6.6-8.7) 10/25/24 07:56 Albumin 4.1 g/dL (3.5-5.2) 10/25/24 07:56 Globulin 2.9 g/dL (1.3-4.6) 10/25/24 07:56 All radiology interpretation(s) finalized by discharge Discharge Plan Discharge Patient Disposition: Home Clinical Impression: Generalized seizure Condition: Stable Prescriptions: No Action isosorbide mononitrate 30 mg tablet extended release 24 hr 30 mg PO QAM metoprolol succinate 100 mg tablet extended release 24 hr 100 mg PO QAM tramadol 50 mg tablet 50 - 100 mg PO Q4H PRN (Reason: Pain) allopurinol 300 mg tablet 300 mg PO QPM letrozole 2.5 mg tablet 2.5 mg PO DAILY olmesartan 20 mg tablet 20 mg PO DAILY Ibrance 125 mg Tablet 125 mg PO DAILY Rx Instructions: administer on days 1 through 21 of a 28-day treatment cycle cyanocobalamin (vitamin B-12) [Vitamin B-12] 1,000 mcg Tablet 1,000 mcg PO DAILY calcium carbonate [Calcium 600] 600 mg calcium (1,500 mg) Tablet 600 mg PO BEDTIME docusate sodium [Colace] 100 mg Capsule 100 mg PO BID Women's Multivitamin 18 mg iron-400 mcg-500 mg Tablet 1 tab PO DAILY Tart Donaldson Extract 1,000 mg Capsule 1,000 mg PO DAILY Discharge Orders: Discharge ED (Routine); Ordered 10/25/24 Ordered By: Korby Michael Referrals: Stewart,JEFF Clarke [Primary Care Provider, Nurse Practitioner] - 4-7 days Discharge Diet: Advance as tolerated Discharge Activity: Resume usual activity Patient Instructions: Generalized Tonic Clonic Seizures (ED) Print Language: Sami Coding Level of Care Code ED Philosophy Faculty for Paulie Paige
--- OUTSIDE RECORDS SUMMARY | 2024-10-25 07:13 | XMS_ITS | Encounter Summary ---
Author Organization [facility] Address [address] [place] [address] Care Team Providers Care Real Estate Accountant Name Role Phone Tricia Stewart APN Primary Care Provider [phone] Encounter Details Date Type Department Care Team (Latest Contact Info) Description 03/03/2006 Outpatient Historical [facility] OBGYN-[place] [address] [address] Donavon Gonzalez MD [address] [address] Routine Medical Exam (Primary Dx); Routine Gynecological Examination Social History Tobacco Use Types Packs/Day Years Used Date Smoking Tobacco: Never Assessed Comments Unknown Sex and Gender Information Value Date Recorded Sex Assigned at Not on file 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 [place] [address] PCP - General NURSE PRACTITIONER 09/02/15 documented as of this encounter
--- OUTSIDE RECORDS SUMMARY | 2024-10-25 07:13 | XMS_ITS | Encounter Summary ---
Author Organization [facility] Address [address] [place] [address] Care Team Providers Care Child Care Development Specialist Name Role Phone Tricia Stewart APN Primary Care Provider [phone] Encounter Details Date Type Department Care Team (Latest Contact Info) Description 09/07/1998 Outpatient Historical [facility] Donavon Gonzalez MD [address] [address] Vaginitis and vulvovaginitis, unspecified (Primary Dx) Social History Tobacco Use Types Packs/Day Years Used Date Smoking Tobacco: Never Assessed Comments Unknown Sex and Gender Information Value Date Recorded Sex Assigned at Not on file 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 [facility] 4 [place] [address] PCP - General NURSE PRACTITIONER 09/02/15 documented as of this encounter
--- OUTSIDE RECORDS SUMMARY | 2024-10-25 07:13 | XMS_ITS | Encounter Summary ---
Author Organization [facility] Address [address] [place] [address] Care Team Providers Care Boat Dispatcher Name Role Phone Tricia Stewart APN Primary Care Provider Encounter Details Date Type Department Care Team (Latest Contact Info) Description 03/29/1999 Outpatient Historical [facility] [address] [place] [address] 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 [facility] 4 [place] [address] PCP - General NURSE PRACTITIONER 09/02/15 documented as of this encounter
--- OUTSIDE RECORDS SUMMARY | 2024-10-25 07:13 | XMS_ITS | Clinical Summary ---
Author Organization [facility] Address [address] [place] [address] Phone Care Team Providers Care Mounting Machine Operator Name Role Phone Terry, Tricia Solorzano APN Primary Care Provider [phone] Allergies Active Allergy Reactions Criticality Noted Date [...] times daily. 180 Tablet 3 8 Active vxxrr-gx-1-dha-e bp-ifumcrq-ykl (krill oil) 654-932-66-75 mg Capsule Take by mouth. 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 Biological N/A: Chest OLIVARES- HLTHCARE HANNA 06/23/2016 [id number] / [id number] / [id number] [place] Ptfe Thck 1.6mmx2.5x10.2 cm [id number] - [id number] Implanted:Qty: 1 on 09/06/2015 by Alexandro Casper MD at [facility] Graft N/A: Chest CR BARD- WEN VASC INC 04/23/2020 [id number] / / [id number] Hemostatic Gelfoam Lg Sz [id number] - [facility] - [id number] Implanted:Qty: 1 on 09/06/2015 by Alexandro Casper MD at [facility] Hemostatic N/A: Chest PFIZER- PHARM 02/23/2018 [id number] / / [id number] Ring Vein Marking 10mm [id number] - [id number] Implanted:Qty: 3 on 09/06/2015 by Alexandro Casper MD at [facility] Other N/A: Chest TELEFLEX- PILL WECK RAOUL L P [id number] / [id number] / [id number] Insurance MEDICARE PART A AND B [employer] [place]H [place] [id number] Advance Directives For more information, please contact: [phone] * Full Code (Latest Code Status on File) Date Activated Date Inactivated Comments 09/06/2015 4:31 PM 09/11/2015 1:33 PM * Full Code Date Activated Date Inactivated Comments 09/02/2015 3:48 AM 09/06/2015 4:31 PM Care Teams Mounting Machine Operator Relationship Specialty Start Date End Date Tricia Stewart APN [facility] [address] [address] PCP - General NURSE PRACTITIONER 09/02/15
--- OUTSIDE RECORDS SUMMARY | 2024-10-25 07:13 | XMS_ITS | Encounter Summary ---
Author Organization [facility] Address [address] [place] [address] Care Team Providers Care Management Coordinator Name Role Phone Tricia Stewart APN Primary Care Provider [phone] Encounter Details Date Type Department Care Team (Latest Contact Info) Description 01/03/2004 Outpatient Historical [facility] OBGYN-[address] [address] Donavon Gonzalez MD [address] [address] Routine medical exam (Primary Dx); ROUTINE ROENTGENOLOGY TEACHER EXAMINATION Social History Tobacco Use Types Packs/Day Years Used Date Smoking Tobacco: Never Assessed Comments Unknown Sex and Gender Information Value Date Recorded Sex Assigned at Not on file Legal Sex Female 6:36 AM MANAGEMENT CONSULTING Gender Identity Not on file Sexual Orientation Not on file documented as of this encounter Plan of Treatment Not on file documented as of this encounter Visit Diagnoses Diagnosis Routine medical exam- Primary Routine general medical examination at a health care facility Routine gynecological examination documented in this encounter Care Teams Management Coordinator Relationship Specialty Start Date End Date Tricia Stewart APN [facility] [place] [address] PCP - General NURSE PRACTITIONER 09/02/15 documented as of this encounter
--- OUTSIDE RECORDS SUMMARY | 2024-10-25 07:13 | XMS_ITS | Encounter Summary ---
Author Organization [facility] Address [address] [place] [address] Care Team Providers Care Installation Coordinator Name Role Phone Tricia Stewart APN Primary Care Provider [phone] Encounter Details Date Type Department Care Team (Late st Contact Info) Description 03/03/2006 Outpatient Historical [facility] FY06 Donavon Gonzalez MD [address] [facility] [address] [place] [address] Social History Tobacco Use Types Packs/Day Years Used Date Smoking Tobacco: Never Assessed Comments Unknown Sex and Gender Information Value Date Recorded Sex Assigned at Not on file 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
--- OUTSIDE RECORDS SUMMARY | 2024-10-25 07:13 | XMS_ITS | Encounter Summary ---
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 [place] [address] PCP - General NURSE PRACTITIONER 09/02/15 documented as of this encounter
--- OUTSIDE RECORDS SUMMARY | 2024-10-25 07:13 | XMS_ITS | Encounter Summary ---
Author Organization [facility] Address [address] [place] [address] Care Team Providers Care Deburring Technician Name Role Phone Tricia Stewart APN Primary Care Provider Encounter Details Date Type Department Care Team (Latest Contact Info) Description 01/28/2005 Outpatient Historical [facility] OBGYN-[address] [address] Donavon Gonzalez MD [address] [address] Routine medical exam (Primary Dx); ROUTINE SOLAR ENERGY TECHNICIAN EXAMINATION Social History Tobacco Use Types Packs/Day Years Used Date Smoking Tobacco: Never Assessed Comments Unknown Sex and Gender Information Value Date Recorded Sex Assigned at Not on file 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
--- OUTSIDE RECORDS SUMMARY | 2024-10-25 07:13 | XMS_ITS | Encounter Summary ---
Author Organization [facility] Address [address] [place] [address] Care Team Providers Care Ancillary Services Manager Therapy Name Role Phone Tricia Stewart APN Primary Care Provider [phone] Encounter Details Date Type Department Care Team (Late st Contact Info) Description 01/28/2005 Outpatient Historical [facility] FY06 Donavon Gonzalez MD 1965 [address] [facility] [address] [place] [address] Social History Tobacco Use Types Packs/Day Years Used Date Smoking Tobacco: Never Assessed Comments Unknown Sex and Gender Information Value Date Recorded Sex Assigned at Not on file 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
--- OUTSIDE RECORDS SUMMARY | 2024-10-25 07:13 | XMS_ITS | Encounter Summary ---
Author Organization [facility] Address [address] [place] [address] Care Team Providers Care Sales Support Rep Name Role Phone Tricia Stewart APN Primary Care Provider [phone] Encounter Details Date Type Department Care Team (Late st Contact Info) Description 01/03/2004 Outpatient Historical [facility] FY06 Margie Dawson, SUPERVISOR CHANNEL PROCESS 1965 [address] [facility] [address] [place], [place] [address] Social History Tobacco Use Types Packs/Day Years Used Date Smoking Tobacco: Never Assessed Comments Unknown Sex and Gender Information Value Date Recorded Sex Assigned at Not on file 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 [place] [address] PCP - General NURSE PRACTITIONER 09/02/15 documented as of this encounter
--- OUTSIDE RECORDS SUMMARY | 2024-10-25 07:14 | XMS_ITS | Encounter Summary ---
Author Organization [facility] Address [address] [place] [address] Care Team Providers Care Signal Engineer Name Role Phone Tricia Stewart APN Primary Care Provider [phone] Encounter Details Date Type Department Care Team (Late st Contact Info) Description 04/02/2007 Outpatient Historical [facility] [address] [address] Donavon Gonzalez MD [address] [address] Social History Tobacco Use Types Packs/Day Years Used Date Smoking Tobacco: Never Assessed Comments Unknown Sex and Gender Information Value Date Recorded Sex Assigned at Not on file Legal Sex Female 6:36 AM ROBOTICS ENGINEER Gender Identity Not on file Sexual Orientation [...] HISTORY/FAMILY HISTORY/SOCIAL HISTORY: Reviewed. 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 IMPRESSION: Yearly exam. PLAN: Pap obtained today. Screening mammogram as above. Will check an FSH to assess menopausal status. She will followup yearly or p.r.n. Donavon Gonzalez M.D. DATA ABSTRACTOR, [place] Electronically Signed by Donavon Gonzalez M.D. 04/13/2007 08:22 , A, 560 Document #: [id number] cc: TICS ENGINEER documented in this encounter Miscellaneous Notes * Letter - Donavon Gonzalez MD - 04/02/2007 12:00 AM CST 04/02/2007 Lilia Aviles r [address] [place] [address] Dear Ms. Aviles: I have received the [...] have any questions. Sincerely, Donavon Gonzalez M.D. DATA ABSTRACTOR, [place] Electronically Signed by Donavon Gonzalez M.D. 04/06/2007 13:03 , P, mw Job #: Document #: [id number] cc: TICS ENGINEER documented in this encounter Plan of Treatment Not on file documented as of this encounter Procedures Procedure Name Priority Date/Time Associated Diagnosis Comments FSH Routine 04/02/2007 4:00 PM ROBOTICS ENGINEER documented in this encounter Results * FSH (04/02/2007 4:00 PM ROBOTICS ENGINEER) FSH 85.1 mIU/ML [facility] FSH FOLLICULAR PHASE 3.5 - 12.5 mIU/ML MID-CYCLE PEAK 4.7 - 21.5 mIU/ML LUTEAL PHASE 1.7 - 7.7 mIU/ML POSTMENOPA USAL 25.8 - 134.8 mIU/ML [facility] [facility] 04/02/2007 4:00 PM ROBOTICS ENGINEER 04/02/2007 4:05 PM ROBOTICS ENGINEER us Donavon Gonzalez MD CHEMISTRY ORDERABLES Final R esult [facility] CLIA# [id number] [address] [place] [address] documented in this encounter Visit Diagnoses Not on filedocumented in this encounter Care Teams Signal Engineer Relationship Specialty Start Date End Date Tricia Stewart APN [address] [address] PCP - General NURSE PRACTITIONER 09/02/15 documented as of this encounter
--- OUTSIDE RECORDS SUMMARY | 2024-10-25 07:14 | XMS_ITS | Encounter Summary ---
Author Organization [facility] Address [address] [place] [address] Care Team Providers Care Printing Roller Polisher Name Role Phone Stewart, Tricia Solorzano APN Primary Care Provider [phone] Encounter Details Date Type Department Care Team (Latest Contact Info) Description 04/02/2007 Outpatient Historical [facility] FY06 Donavon Gonzalez MD [address] [address] Routine Gynecological Examination Social History Tobacco Use Types Packs/Day Years Used Date Smoking Tobacco: Never Assessed Comments Unknown Sex and Gender Information Value Date Recorded Sex Assigned at Not on file Legal Sex Female 6:36 AM TRANSVERSE ABDOMINAL MUSCLE NURSE Gender Identity Not on file Sexual Orientation Not on file documented as of this encounter Plan of Treatment Not on file documented as of this encounter Procedures Procedure Name Priority Date/Time Associated Diagnosis Comments PATHOLOGY Routine 04/02/2007 6:29 AM TRANSVERSE ABDOMINAL MUSCLE NURSE documented in this encounter Results * PATHOLOGY (04/02/2007 6:29 AM TRANSVERSE ABDOMINAL MUSCLE NURSE) PATHOLOGY/CY TOLOGY REPORT [facility] [address] [facility] [address] Patient: LILIA AVILES Accn No: [id number] Collected: 04/02/2007 6:29:00 AM CYTOLOGY PERSONAL CONSULTANT FINAL REPORT - - CUSTOMER RELATIONS CONSULTANT PAP History Specimen Source: Endocervical/Cervic al LMP: None Provided Last Pap Date: 03-02 WNL V72.31 Specimen Adequacy No endocervical cells identified. The presence or absence of an endocervical component is indeterminate in this specimen secondary to atrophy causing difficulty in distinguishing parabasilar type cells from squamous metaplastic cells. Diagnosis NEGATIVE FOR INTRAEPITHELIAL LESION OR MALIGNANCY. (Previously noted as Within Normal Limits) Acid Conditioning Worker 04/03/07 Completed by: FRANCY PEREZ (Electronically signed [...] his/her patient. INTERFACE SYSTEM 04/02/2007 6:29 AM TRANSVERSE ABDOMINAL MUSCLE NURSE us Donavon Gonzalez MD PATHOLOGY/CYTOLOGY ORDERABLE S Final Result INTERFACE SYSTEM Refer to clinic/hospital department documented in this encounter Visit Diagnoses Diagnosis Routine gynecological examination documented in this encounter Care Teams Printing Roller Polisher Relationship Specialty Start Date End Date Tricia Stewart APN [address] [place] [address] PCP - General NURSE PRACTITIONER 09/02/15 documented as of this encounter
--- OUTSIDE RECORDS SUMMARY | 2024-10-25 07:14 | XMS_ITS | Encounter Summary ---
Author Organization [facility] Address [address] [place] [address] Care Team Providers Care Lingo Cleaner Name Role Phone Tricia Stewart APN Primary Care Provider [phone] Encounter Details Date Type Department Care Team (Late st Contact Info) Description 01/12/2002 Outpatient Historical [facility] Chloé Clark, VB DEVELOPER [address] [place] [address] Social History Tobacco Use Types Packs/Day Years Used Date Smoking Tobacco: Never Assessed Comments Unknown Sex and Gender Information Value Date Recorded Sex Assigned at Not on file Legal Sex Female 6:36 AM CHIEF TECHNICIAN X RAY Gender Identity Not on file Sexual Orientation Not on file documented as of this encounter Plan of Treatment Not on file documented as of this encounter Visit Diagnoses Not on filedocumented in this encounter Care Teams Lingo Cleaner Relationship Specialty Start Date End Date Tricia Stewart APN [facility] [address] [place] [address] PCP - General NURSE PRACTITIONER 09/02/15 documented as of this encounter
--- OUTSIDE RECORDS SUMMARY | 2024-10-25 07:14 | XMS_ITS | Encounter Summary ---
Author Organization [facility] Address [address] [place] [address] Care Team Providers Care Device Engineer Name Role Phone Tricia Stewart APN Primary Care Provider [phone] Encounter Details Date Type Department Care Team (Latest Contact Info) Description 02/08/2002 Outpatient Historical [facility] [address] [place] [address] Donavon Gonzalez MD 1965 [address] [facility] [address] [place] [address] DISORDERS OF UTERUS NEC (Primary Dx) Social History Tobacco Use Types Packs/Day Years Used Date Smoking Tobacco: Never Assessed Comments Unknown Sex and Gender Information Value Date Recorded Sex Assigned at Not on file Legal Sex Female 6:36 AM 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
[2024-10-25 07:23] VITALS: BP 188/97; PULSE 95; RESP 18; TEMP 36.8; O2SAT 92; BMI 32.5
[2024-10-25 08:02] VITALS: BP 168/91; PULSE 76; O2SAT 96
[2024-10-25 08:03] LABS: Hematocrit 27.3 % (36-47); Hemoglobin 9.20 g/dL (11.27-16.99); Mean Corpuscular HGB Conc 33.7 g/dL (30-55); Mean Corpuscular Hemoglobin 32.4 pg (27-33); Mean Corpuscular Volume 96.1 fl (85-98); Nucleated Red Blood Cells % 0 %; Platelet Count 146 10^3/cmm (157-399); Red Blood Count 2.84 10^6/uL (3.85-5.65); White Blood Count 3.29 10^3/uL (3.29-11.43)
--- NOTE | 2024-10-25 08:16 | PC.PHAR ---
Pt states she is on Lovenox but does not know what strength it is. Pt has to order it through her cancer doctor. Unable to locate an order for it.
[2024-10-25 08:23] LABS: Alanine Aminotransferase 16 U/L (0-33); Albumin Level 4.1 g/dL (3.5-5.2); Alkaline Phosphatase 59 U/L (35-105); Anion Gap 19.3 (5-19); Aspartate Amino Transferase 23 U/L (0-32); Blood Urea Nitrogen 24 mg/dL (8-23); Calcium 9.7 mg/dL (8.5-10.5); Carbon Dioxide 21 mmol/L (22-29); Chloride 95 mmol/L (98-107); Creatinine Clr Calc Pharmacy 47.6660; Globulin 2.9 g/dL (1.3-4.6); Glucose 218 mg/dL (65-115); Osmolality Calculated 283 mOsm/kg (285-295); Potassium 4.3 mmol/L (3.5-5.1); Sodium 131 mmol/L (136-145); Total Protein 7.0 g/dL (6.6-8.7)
[2024-10-25 08:39] VITALS: BP 168/91; PULSE 78; O2SAT 94
== END 2024-10-25 08:51 | disposition home or self-care (01) ==
PROVIDERS: Emergency Provider Emergency Medicine; PCP Nurse Practitioner Family
DX: G40.89 Other seizures (principal); Z87.891 Personal history of nicotine dependence; I25.10 Atherosclerotic heart disease of native coronary artery without angina pectoris; I10 Essential (primary) hypertension; Z85.3 Personal history of malignant neoplasm of breast; Z95.1 Presence of aortocoronary bypass graft
CPT/HCPCS: 36415; 70450; 80053; 85025; 99284